=== PATIENT | female | born 1935 | race Caucasian/White ===

== ENCOUNTER 2017-01-27 16:25 | Emergency (ER) | payer MEDICARE, OTHER ==
[2017-01-27] MEDS ORDERED: MORPHINE SULFATE 4 MG/ML SYRINGE IVP STA (17:08)
[2017-01-27] MEDS ORDERED: DIPH,PERTUS(ACELL)TETVAC-LF 0.5 ML VIAL IM ONE (17:29)
[2017-01-27 17:45] LABS: Basophils # (A) 0.1 k/uL (0-0.2); Basophils % (A) 1 %; CH 32.8; CHCM 35.2; Eosinophils # (A) 0.2 k/uL (0-0.7); Eosinophils % (A) 3 %; HCT 43.1 % (34.0-46.0); HDW 2.46; HGB 15.2 gm/dL (11.4-16.0); Luc # (Auto) 0.19; Luc % (Auto) 2; Lymphocytes # (A) 1.9 k/uL (1.0-4.8); Lymphocytes % (A) 24 %; MCHC 35.3 g/dL (31.0-37.0); MCV 93.6 fL (80.0-100.0); Mean Platelet Volume 7.3; Monocytes # (A) 0.5 k/uL (0-1.0); Monocytes % (A) 6 %; Neutrophils # (A) 5.4 k/uL (1.3-7.7); Neutrophils % (A) 66 %; RDW 13.1 % (11.5-15.5); WBC 8.2 k/uL (3.8-10.6); WBC (Perox) 8.05
[2017-01-27 17:57] LABS: ALT 40 U/L (9-52); AST 50 U/L (14-36); Alcohol <10 mg/dL; Alkaline Phosphatase 78 U/L (38-126); Anion Gap 12 mmol/L; Blood Urea Nitrogen 27 mg/dL (7-17); Carbon Dioxide 23 mmol/L (22-30); Chloride 103 mmol/L (98-107); Glucose 103 mg/dL (74-99); Non-African American GFR(MDRD) >60 (>60 ml/min/1.73 sqM); Sodium 138 mmol/L (137-145); Total Bilirubin 0.9 mg/dL (0.2-1.3); Total Protein 8.4 g/dL (6.3-8.2)
[2017-01-27 17:58] LABS: Potassium 5.3 mmol/L (3.5-5.1)
--- NOTE | 2017-01-27 17:58 | ED ---
General Adult HPI - General Chief complaint: Fall Stated complaint: Fall-wrist and facial pain Time Seen by Provider: 01/27/17 16:59 Source: patient Mode of arrival: wheelchair Limitations: no limitations - History of Present Illness Initial comments: 81-year-old female presents status post mechanical fall. Patient states she tripped and fell landing on her right hand and face. She denies any loss of consciousness. She is complaining of right elbow, right hand,and mild pain in her left knee. Patient was ambulatory after the accident. She denies any chest pain or shortness of breath. Denies any dizziness prior to the follow- up. She has past medical history of hypertension, diabetes, and CAD status post stent. Pain in her nose 400 is severe as well as pain in her right hand. She also noted significant swelling over the right hand. Denies any vision changes, numbness nausea or vomiting. - Related Data Home Medications Medication Instructions Recorded Confirmed Aspirin EC [Ecotrin Low Dose] 81 mg PO BID 01/27/17 01/27/17 Lisinopril [Zestril] 20 mg PO BID 01/27/17 01/27/17 Metoprolol Tartrate [Lopressor] 25 mg PO BID 01/27/17 01/27/17 Multivitamins, Thera [Multivitamin 1 tab PO DAILY 01/27/17 01/27/17 (formulary)] Previous Rx's Medication Instructions Recorded Ibuprofen [Motrin] 600 mg PO Q8HR PRN #20 tab 01/27/17 Allergies Allergy/AdvReac Type Severity Reaction Status Date / Time Sulfa (Sulfonamide Allergy Unknown Verified 01/27/17 16:48 Antibiotics) Review of Systems ROS Statement: Those systems with pertinent positive or pertinent negative responses have been documented in the HPI. ROS Other: All systems not noted in ROS Statement are negative. Past Medical History Past Medical History: Coronary Artery Disease (CAD), Hypertension History of Any Multi-Drug Resistant Organisms: None Reported Additional Past Surgical History / Comment(s): Coronary stenting Past Psychological History: No Psychological Hx Reported Smoking Status: Never smoker Past Alcohol Use History: None Reported Past Drug Use History: None Reported General Exam Limitations: no limitations General appearance: alert, in no apparent distress Expanded Head exam: Present: raccoon eyes, other. Absent: ang's sign Eye exam: Present: normal appearance, PERRL, EOMI ENT exam: Present: other (Swelling over the nasal bridge, no additional deformity noted) Neck exam: Present: tenderness, full ROM, other (Tenderness over the left lateral paraspinal muscles) Respiratory exam: Present: normal lung sounds bilaterally. Absent: respiratory distress Cardiovascular Exam: Present: regular rate, normal rhythm GI/Abdominal exam: Present: soft. Absent: distended, tenderness, guarding, rebound Rectal exam: Present: deferred Extremities exam: Present: other (Abrasion to the left lateral elbow, range of motion at the left shoulder and left elbow is within normal limits, right radial pulse intact, there is significant soft tissue swelling and ecchymosis over the plantar and dorsal surface of the hand. Normal range of motion of all 5 digits, Refill is intact in all 5 digits.) Back exam: Present: normal inspection, full ROM Neurological exam: Present: alert, oriented X3, CN II-XII intact, normal gait Skin exam: Present: abrasion (Additional small superficial abrasion noted over the left knee.) Course Vital Signs 01/27/17 01/27/17 01/27/17 16:31 17:38 18:42 Temperature 98.1 F Pulse Rate 84 62 74 Respiratory 20 18 20 Rate Blood Pressure 252/94 191/71 O2 Sat by Pulse 98 100 98 Oximetry - Reevaluation(s) Time: 18:30 Procedures - Orthopedic Splinting/Casting Injury #1 Side: right Upper Extremity Injury Location: wrist Upper Extremity Immobilizer: wrist splint (Volar splint applied to the right wrist. Patient is neurovascularly intact status post splinting) Medical Decision Making - Medical Decision Making 81-year-old female presents status post mechanical fall. Patient is complaining primarily of pain over her nasal bridge and right hand and wrist. On examination patient has bilateral orbital ecchymosis and soft tissue swelling over the nasal bridge. She has significant soft tissue swelling over the right distal wrist and hand. Patient denies loss of consciousness. She denies a chest pressure or shortness of breath, or dizziness or lightheadedness associated with the fall. Computed tomography scan of the brain, facial bones, and cervical spine is obtained. There is no scrotal hemorrhage, no facial bone fracture, no cervical spine injury. X-rays of the chest, pelvis, right hand, right wrist, and right shoulder are also obtained and these are negative for fracture or dislocation. Given the significant swelling of the right wrist she is placed in a volar splint and encouraged to follow up with her primary care physician. She is also given follow-up with hand surgery as an outpatient. Laboratory studies are reviewed and are significant for mildly elevated CK-MB and CPK. This is likely due to traumatic injury. Patient denies chest pain associated with the injury or while in the emergency department. EKG is obtained and shows a ventricular rate of 61, normal sinus rhythm, SC interval 150, QRS duration 80, QTc is 388. Diagnosis: Closed head injury, right hand contusion - Lab Data Result diagrams: 01/27/17 17:35 01/27/17 17:35 Lab Results 01/27/17 01/27/17 01/27/17 Range/Units 17:35 17:35 17:35 WBC (3.8-10.6) k/uL RBC (3.80-5.40) m/uL Hgb (11.4-16.0) gm/dL Hct (34.0-46.0) % MCV (80.0-100.0) fL MCH (25.0-35.0) pg MCHC (31.0-37.0) g/dL RDW (11.5-15.5) % Plt Count (150-450) k/uL Neutrophils % % Lymphocytes % % Monocytes % % Eosinophils % % Basophils % % Neutrophils # (1.3-7.7) k/uL Lymphocytes # (1.0-4.8) k/uL Monocytes # (0-1.0) k/uL Eosinophils # (0-0.7) k/uL Basophils # (0-0.2) k/uL PT (9.0-12.0) sec INR (<1.1) APTT (22.0-30.0) sec Sodium 138 (137-145) mmol/L Potassium 5.3 H (3.5-5.1) mmol/L Chloride 103 (98-107) mmol/L Carbon Dioxide 23 (22-30) mmol/L Anion Gap 12 mmol/L BUN 27 H (7-17) mg/dL Creatinine 0.86 (0.52-1.04) mg/dL Est GFR (MDRD) Af Amer >60 (>60 ml/min/1.73 sqM) Est GFR (MDRD) Non-Af >60 (>60 ml/min/1.73 sqM) Glucose 103 H (74-99) mg/dL Calcium 10.0 (8.4-10.2) mg/dL Total Bilirubin 0.9 (0.2-1.3) mg/dL AST 50 H (14-36) U/L ALT 40 (9-52) U/L Alkaline Phosphatase 78 (38-126) U/L Total Creatine Kinase 146 H (30-135) U/L CK-MB (CK-2) 4.9 H* (0.0-2.4) ng/mL CK-MB (CK-2) Rel Index 3.4 Troponin I <0.012 (0.000-0.034) ng/mL Total Protein 8.4 H (6.3-8.2) g/dL Albumin 4.8 (3.5-5.0) g/dL Urine Color Urine Appearance (Clear) Urine pH (5.0-8.0) Ur Specific Dawn (1.001-1.035) Urine Protein (Negative) Urine Glucose (UA) (Negative) Urine Ketones (Negative) Urine Blood (Negative) Urine Nitrite (Negative) Urine Bilirubin (Negative) Urine Urobilinogen (<2.0) mg/dL Ur Leukocyte Esterase (Negative) Urine RBC (0-5) /hpf Urine WBC (0-5) /hpf Urine Bacteria (None) /hpf Urine Mucus (None) /hpf Urine Opiates Screen (NotDetected) Ur Oxycodone Screen (NotDetected) Urine Methadone Screen (NotDetected) Ur Propoxyphene Screen (NotDetected) Ur Barbiturates Screen (NotDetected) U Tricyclic Antidepress (NotDetected) Ur Phencyclidine Scrn (NotDetected) Ur Amphetamines Screen (NotDetected) U Methamphetamines Scrn (NotDetected) U Benzodiazepines Scrn (NotDetected) Urine Cocaine Screen (NotDetected) U Marijuana (THC) Screen (NotDetected) Serum Alcohol <10 mg/dL Blood Type A Positive Blood Type Recheck CABO Indicated Antibody Screen NEGATIVE Spec Expiration Date 01/30/2017 - 233401/27/17 01/27/17 01/27/17 Range/Units 17:35 17:35 19:00 WBC 8.2 (3.8-10.6) k/uL RBC 4.60 (3.80-5.40) m/uL Hgb 15.2 (11.4-16.0) gm/dL Hct 43.1 (34.0-46.0) % MCV 93.6 (80.0-100.0) fL MCH 33.0 (25.0-35.0) pg MCHC 35.3 (31.0-37.0) g/dL RDW 13.1 (11.5-15.5) % Plt Count 181 (150-450) k/uL Neutrophils % 66 % Lymphocytes % 24 % Monocytes % 6 % Eosinophils % 3 % Basophils % 1 % Neutrophils # 5.4 (1.3-7.7) k/uL Lymphocytes # 1.9 (1.0-4.8) k/uL Monocytes # 0.5 (0-1.0) k/uL Eosinophils # 0.2 (0-0.7) k/uL Basophils # 0.1 (0-0.2) k/uL PT 10.5 (9.0-12.0) sec INR 1.0 (<1.1) APTT 21.9 L (22.0-30.0) sec Sodium (137-145) mmol/L Potassium (3.5-5.1) mmol/L Chloride (98-107) mmol/L Carbon Dioxide (22-30) mmol/L Anion Gap mmol/L BUN (7-17) mg/dL Creatinine (0.52-1.04) mg/dL Est GFR (MDRD) Af Amer (>60 ml/min/1.73 sqM) Est GFR (MDRD) Non-Af (>60 ml/min/1.73 sqM) Glucose (74-99) mg/dL Calcium (8.4-10.2) mg/dL Total Bilirubin (0.2-1.3) mg/dL AST (14-36) U/L ALT (9-52) U/L Alkaline Phosphatase (38-126) U/L Total Creatine Kinase (30-135) U/L CK-MB (CK-2) (0.0-2.4) ng/mL CK-MB (CK-2) Rel Index Troponin I (0.000-0.034) ng/mL Total Protein (6.3-8.2) g/dL Albumin (3.5-5.0) g/dL Urine Color Colorless Urine Appearance Clear (Clear) Urine pH 5.0 (5.0-8.0) Ur Specific Dawn 1.005 (1.001-1.035) Urine Protein Negative (Negative) Urine Glucose (UA) Negative (Negative) Urine Ketones Negative (Negative) Urine Blood Negative (Negative) Urine Nitrite Negative (Negative) Urine Bilirubin Negative (Negative) Urine Urobilinogen <2.0 (<2.0) mg/dL Ur Leukocyte Esterase Large H (Negative) Urine RBC <1 (0-5) /hpf Urine WBC 20 H (0-5) /hpf Urine Bacteria Rare H (None) /hpf Urine Mucus Rare H (None) /hpf Urine Opiates Screen Detected H (NotDetected) Ur Oxycodone Screen Not Detected (NotDetected) Urine Methadone Screen Not Detected (NotDetected) Ur Propoxyphene Screen Not Detected (NotDetected) Ur Barbiturates Screen Not Detected (NotDetected) U Tricyclic Antidepress Not Detected (NotDetected) Ur Phencyclidine Scrn Not Detected (NotDetected) Ur Amphetamines Screen Not Detected (NotDetected) U Methamphetamines Scrn Not Detected (NotDetected) U Benzodiazepines Scrn Not Detected (NotDetected) Urine Cocaine Screen Not Detected (NotDetected) U Marijuana (THC) Screen Not Detected (NotDetected) Serum Alcohol mg/dL Blood Type Blood Type Recheck Antibody Screen Spec Expiration Date - EKG Data EKG shows normal: sinus rhythm Rate: normal 01/27/17 17:57 EKG is obtained and shows normal sinus rhythm with a ventricular rate of 61, SC interval 150, QRS duration is 80, QTc is 388 which is normal. Disposition Clinical Impression: Contusion of hand, Concussion with no loss of consciousness, Fall Disposition: HOME SELF-CARE Condition: Good Instructions: Fall Prevention for Older Adults (ED), Concussion (ED), Wrist Sprain (ED) Prescriptions: Ibuprofen [Motrin] 600 mg PO Q8HR PRN #20 tab PRN Reason: Pain Referrals: Prasanna Solis MD [Primary Care Provider] - 1-2 days Time of Disposition: 19:41
[2017-01-27 18:04] LABS: Partial Thromboplastin Time 21.9 sec (22.0-30.0); Prothrombin Time 10.5 sec (9.0-12.0)
[2017-01-27 18:05] LABS: Creatine Kinase 146 U/L (30-135)
[2017-01-27 18:17] LABS: Troponin I <0.012 ng/mL (0.000-0.034)
[2017-01-27 18:21] LABS: Creatine Kinase MB 4.9 ng/mL (0.0-2.4)
--- NOTE | 2017-01-27 18:44 | XR ---
EXAMINATION TYPE: XR pelvis AP view DATE OF EXAM: 01/27/2017 CLINICAL HISTORY: pain TECHNIQUE: Single view the pelvis is submitted. FINDINGS: No evidence for fracture, dislocation or bony lesion. Joint spaces are well-preserved. S I joints appear symmetric. IMPRESSION: 1. No acute fracture or dislocation seen. ICD 10 NO FRACTURE, INITIAL EVALUATION
--- NOTE | 2017-01-27 18:46 | XR ---
EXAMINATION TYPE: XR wrist complete RT, XR hand complete RT DATE OF EXAM: 01/27/2017 CLINICAL HISTORY: pain TECHNIQUE: Frontal, lateral and oblique images of the right wrist are obtained. COMPARISON: None. FINDINGS: There is no acute fracture/dislocation evident. Severe degenerative narrowing first carpometacarpal j oint with bony collapse noted. The overlying soft tissue appears unremarkable. IMPRESSION: There is no acute fracture or dislocation seen. ICD 10 NO FRACTURE, INITIAL EVALUATION EXAMINATION TYPE: XR wrist complete RT, XR hand complete RT DATE OF EXAM: 01/27/2017 CLINICAL HISTORY: pain TECHNIQUE: Frontal, lateral and oblique images of the right hand are obtained. COMPARISON: None. FINDINGS: There is no acute fracture/dislocation evident. Severe degenerative narrowing DIP and PIP joints. Soft tissue swelling of the dorsum of the hand. IMPRESSION: There is no acute fracture or dislocation ICD 10 NO FRACTURE, INITIAL EVALUATION
--- NOTE | 2017-01-27 18:47 | XR ---
EXAMINATION TYPE: XR elbow complete RT DATE OF EXAM: 01/27/2017 CLINICAL HISTORY: pain TECHNIQUE: Frontal, lateral and oblique images of the right elbow are obtained. COMPARISON: None. FINDINGS: There is no acute fracture/dislocation evident of the elbow. No abnormal fat pad signs ar e seen. The overlying soft tissue appears unremarkable. IMPRESSION: There is no acute fracture or dislocation of the elbow. ICD 10 NO FRACTURE, INITIAL EVALUATION
--- NOTE | 2017-01-27 18:47 | XR ---
EXAMINATION TYPE: XR chest 1V portable DATE OF EXAM: 01/27/2017 HISTORY: Shortness of breath. COMPARISON: 10/18/2012 TECHNIQUE: Single view of the chest is submitted. FINDINGS: Demonstrated are scattered senescent parenchymal change. There is no evidence for focal infiltrate. The heart is stable. Hilar and mediastinal structures are within normal limits. Degenerative changes are seen of the dorsal spine. IMPRESSION: 1. Chronic changes without evidence for acute pulmonary disease.
--- NOTE | 2017-01-27 18:49 | CT ---
EXAMINATION TYPE: CT brain zach rodrigues DATE OF EXAM: 01/27/2017 COMPARISON: NONE HISTORY: Fall injury today. CT DLP: 1485.[address] of the brain was performed. The ventricles, basal cisterns and sulci overlying the cerebral convexities demonstrate mild enlargem ent. There is no evidence for intracranial hemorrhage or sulcal effacement. There is decreased attenuatio n about the periventricular white matter and deep white matter of both cerebral hemispheres, compatib le with chronic small vessel ischemia. No mass effects are seen. If symptoms persist consider MRI. Osseous calvarium is intact. IMPRESSION: 1. Age related atrophic and chronic small vessel ischemic change without acute intracranial process seen at this time. CT Cervical Spine: Unenhanced CT of the cervical spine was performed with bone and soft tissue window settings submitted . Coronal and sagittal reconstruction is obtained. There is normal alignment and prevertebral soft tissues. No evidence for acute cervical fracture . Se tito degenerative disc space narrowing with spondylosis and associated cystic changes. Biapical scarr ing. IMPRESSION: 1. No evidence for acute fracture or subluxation of the cervical spine.
--- NOTE | 2017-01-27 18:51 | CT ---
EXAMINATION TYPE: CT facial bones wo con DATE OF EXAM: 01/27/2017 COMPARISON: NONE HISTORY: Fall injury today. CT DLP: 557.[address] of the facial bones was performed in the axial and coronal planes. Bone and soft tissu e window settings are submitted. Periorbital and perinasal swelling identified. I do not see evidence for displaced facial bone fracture or depressed facial bone fracture. The globes are intact. Paranasal sinuses are well-aerated. IMPRESSION: 1. No evidence for depressed or displaced facial bone fracture.
[2017-01-27 19:11] LABS: Appearance,Urine Clear (Clear); Bacteria,Urine Rare /hpf; Bilirubin,Urine Negative (Negative); Glucose,Urine (UA) Negative (Negative); Ketones,Urine Negative (Negative); Leukocyte Esterase,Urine Large (Negative); Mucus,Urine Rare /hpf; Nitrite,Urine Negative (Negative); Particle Count 1897; Protein,Urine Negative (Negative); RBC,Urine <1 /hpf (0-5); Specific Gravity,Urine 1.005 (1.001-1.035); UA Billing (MACRO vs. MICRO) MICRO; Urobilinogen,Urine <2.0 mg/dL (<2.0); WBC,Urine 20 /hpf (0-5)
[2017-01-27 19:54] VITALS: TEMP 98.6
[2017-01-27 20:07] VITALS: BP 128/56; PULSE 62; RESP 20
== END 2017-01-27 20:07 | disposition home or self-care (01) ==
LOC: EC 16:25
DX: S06.0X0A Concussion without loss of consciousness, initial encounter (principal); S60.221A Contusion of right hand, initial encounter; S05.11XA Contusion of eyeball and orbital tissues, right eye, initial encounter; S05.12XA Contusion of eyeball and orbital tissues, left eye, initial encounter; S80.212A Abrasion, left knee, initial encounter; S50.312A Abrasion of left elbow, initial encounter; M79.89 Other specified soft tissue disorders; R22.0 Localized swelling, mass and lump, head; R79.89 Other specified abnormal findings of blood chemistry; I10 Essential (primary) hypertension; I25.10 Atherosclerotic heart disease of native coronary artery without angina pectoris; Z79.82 Long term (current) use of aspirin; Z79.899 Other long term (current) drug therapy; Z88.2 Allergy status to sulfonamides; W01.0XXA Fall on same level from slipping, tripping and stumbling without subsequent striking against object, initial encounter; Y93.89 Activity, other specified
CPT/HCPCS: 36415; 93005; 86900; 86901; 80053; 82550; 82553; 84484; 85025; 85610; 85730; 86850; 81001; 80306; 80320; 71010; 72170; 73080; 73110; 73130; 72125; 70486; 70450; 99284; 96374; 29125; J2270

== ENCOUNTER → 2018-10-15 | Outpatient (CLI) | payer MEDICARE ==
--- NOTE | 2018-10-15 15:45 | US ---
EXAMINATION TYPE: US venous doppler duplex LE LT DATE OF EXAM: 10/15/2018 3:29 PM COMPARISON: NONE CLINICAL HISTORY: M79.605 left leg pain. Left ankle swelling x 2 days SIDE PERFORMED: Left TECHNIQUE: The lower extremity deep venous system is examined utilizing real time linear array sonog laial with graded compression, doppler sonography and color-flow sonography. VESSELS IMAGED: Common Femoral Vein Deep Femoral Vein Greater Saphenous Vein * Femoral Vein Popliteal Vein Small Saphenous Vein * Proximal Calf Veins (* superficial vessels) There is normal flow, compressibility, vascular waveforms. Left Leg: Negative for DVT. Left popliteal fossa cyst is noted medially = 2.5 x 1.2 x 0.5cm. IMPRESSION: No evident deep venous stenosis at or above the left knee. Sheldon's cyst.
== END | disposition home or self-care (01) ==
LOC: RADUSWWP 14:24
PROVIDERS: ATTEND Internal Medicine
DX: M71.22 Synovial cyst of popliteal space [Baker], left knee (principal); M79.605 Pain in left leg

== ENCOUNTER 2018-11-10 12:35 | Inpatient (IN) | payer MEDICARE, OTHER ==
[2018-11-10] MEDS ORDERED: NITROGLYCERIN-D5W PMX 50 MG in DEXTROSE/WATER 1 250ML.BAG IV STA (12:43)
[2018-11-10] MEDS ORDERED: ASPIRIN 81 MG PO STA (12:43)
[2018-11-10] MEDS ORDERED: NITROGLYCERIN SL TABS 0.4 MG TAB SUBLINGUAL STA (12:43)
--- NOTE | 2018-11-10 12:48 | ED ---
General Adult HPI - General Stated complaint: Chest Pain Time Seen by Provider: 11/10/18 12:36 Source: patient, EMS, RN notes reviewed Mode of arrival: EMS Limitations: no limitations - History of Present Illness Initial comments: Patient is a pleasant 83-year-old female presenting to the emergency Department with complaints of chest discomfort. Onset of symptoms was 30 or 40 minutes prior to arrival. Patient complains of pressure waxing and waning her chest. Discomfort is somewhat severe at this time rated 9/10. No radiation. Patient does have mild associated nausea. No diaphoresis or dyspnea. Patient does have history of similar symptoms a proximal he one year ago associated with heart attack. Symptoms did get better with nitroglycerin by EMS. - Related Data Home Medications Medication Instructions Recorded Confirmed Aspirin EC [Ecotrin Low Dose] 81 mg PO BID 01/27/17 05/20/17 Lisinopril [Zestril] 20 mg PO BID 01/27/17 05/20/17 Metoprolol Tartrate [Lopressor] 25 mg PO BID 01/27/17 05/20/17 Multivitamins, Thera [Multivitamin 1 tab PO DAILY 01/27/17 05/20/17 (formulary)] Vits A,C,E/Lutein/Minerals 1 tab PO DAILY 05/20/17 05/20/17 [Ocuvite with Lutein Tablet] Previous Rx's Medication Instructions Recorded amLODIPine [Norvasc] 10 mg PO DAILY #30 tablet 05/22/17 Allergies Allergy/AdvReac Type Severity Reaction Status Date / Time Sulfa (Sulfonamide Allergy Unknown Verified 11/10/18 12:49 Antibiotics) Review of Systems ROS Statement: Those systems with pertinent positive or pertinent negative responses have been documented in the HPI. ROS Other: All systems not noted in ROS Statement are negative. Constitutional: Denies: fever Eyes: Denies: eye pain ENT: Denies: ear pain Respiratory: Denies: cough, dyspnea Cardiovascular: Reports: chest pain Endocrine: Denies: fatigue Gastrointestinal: Reports: nausea. Denies: abdominal pain Genitourinary: Denies: dysuria Musculoskeletal: Denies: back pain Skin: Denies: rash Neurological: Denies: weakness Past Medical History Past Medical History: Coronary Artery Disease (CAD), Deep Vein Thrombosis (DVT), Hyperlipidemia, Hypertension, Myocardial Infarction (ME), Osteoarthritis (OA) Additional Past Medical History / Comment(s): 01/2017 concussion, high cholesterol-does not tolerate statins, arthritis bilateral hands, neuropathy bilateral feet, past R ankle fracture, DVT R leg many years ago. Last Myocardial Infarction Date:: 2002 History of Any Multi-Drug Resistant Organisms: None Reported Past Surgical History: Adenoidectomy, Appendectomy, Heart Catheterization With Stent, Hysterectomy, Orthopedic Surgery, Tonsillectomy Additional Past Surgical History / Comment(s): 2002 Coronary stenting, bilateral cataract removal with lens implants, colonoscopy, laparoscopic surgery for abdominal adhesions, R knee arthroscopic surgery. Past Anesthesia/Blood Transfusion Reactions: No Reported Reaction Date of Last Stent Placement:: 2002 Smoking Status: Former smoker - Past Family History Father Family Medical History: Cancer, Coronary Artery Disease (CAD) Additional Family Medical History / Comment(s): Pt was estranged from her father. She thinks he had some form of cancer and heart disease-he at the age of 54yrs. Mother Family Medical History: Coronary Artery Disease (CAD), Diabetes Mellitus Additional Family Medical History / Comment(s): Mother at the age of 72 yrs. General Exam Limitations: no limitations General appearance: alert, in no apparent distress Head exam: Present: atraumatic Eye exam: Present: normal appearance, PERRL ENT exam: Present: normal oropharynx Neck exam: Present: normal inspection Respiratory exam: Present: normal lung sounds bilaterally. Absent: chest wall tenderness Cardiovascular Exam: Present: regular rate, normal rhythm Expanded Peripheral pulses: 2+: Radial (R), Radial (L), Posterior Tibialis (R), Posterior Tibialis (L) GI/Abdominal exam: Present: soft. Absent: tenderness Extremities exam: Present: normal inspection. Absent: pedal edema, calf tenderness Neurological exam: Present: alert Psychiatric exam: Present: normal affect, normal mood Skin exam: Present: normal color Course Vital Signs 11/10/18 12:44 Temperature 98 F Pulse Rate 63 Respiratory 18 Rate Blood Pressure 141/65 - Reevaluation(s) Reevaluation #1: 11/10/18 12:46 Case was discussed with Dr. Quan who is coming to evaluate patient. EKG tracing by EMS does show borderline changes in lead III and aVF. EKG Findings - EKG Comments: EKG Findings:: Sinus bradycardia 57. VA 164. QRS 80. QT 444. QTC 432. Normal axis. Normal QRS. No acute ST change. Medical Decision Making - Medical Decision Making Dr. Quan did evaluate patient in the emergency department with plan for continued cardiac care. Patient is symptom-free at this time. He did request heparin Case was discussed also with Dr. willett, who will admit covering for Dr. Swan. Patient was reevaluated and updated. - Radiology Data Radiology results: image reviewed (Chest x-ray reveals no acute process) Disposition Clinical Impression: ACS (acute coronary syndrome) Disposition: ADMITTED IP TO THIS HOSP Is patient prescribed a controlled substance at d/c from ED?: No Referrals: Prasanna Solis MD [Primary Care Provider] - 1-2 days
[2018-11-10] MEDS ORDERED: ATORVASTATIN 80 MG TAB PO STA (12:56)
[2018-11-10] MEDS ORDERED: HEPARIN SODIUM,PORCINE 5,000 UNIT/ML 1 ML VIAL IV ONE (12:58)
--- NOTE | 2018-11-10 13:14 | XR ---
EXAMINATION TYPE: XR chest 1V portable DATE OF EXAM: 11/10/2018 COMPARISON: Chest x-ray January 27, 2017. CTA chest May 20, 2017. HISTORY: Chest pain. TECHNIQUE: Single AP portable frontal upright view of the chest is obtained. FINDINGS: Overlying EKG leads are redemonstrated. There is background chronic emphysematous change wi th scattered parenchymal fibrosis. There is no focal air space opacity, pleural effusion, or pneumoth orax seen. The cardiac silhouette size is within normal limits with atherosclerotic change in the th oracic aorta. There is some mass effect on the trachea deviated to right of midline. The osseous st ructures are intact. IMPRESSION: Chronic emphysematous and parenchymal changes without acute pulmonary process.
[2018-11-10] MEDS ORDERED: HEPARIN SOD,PORK IN 0.45% NACL 25,000 UNIT in 0.45% NACL 1 250ML.BAG IV SCH (13:30)
[2018-11-10 14:03] LABS: Basophils % (A) 0 %; Eosinophils # (A) 0.2 k/uL (0-0.7); Eosinophils % (A) 2 %; HCT 43.9 % (34.0-46.0); Lymphocytes # (A) 1.4 k/uL (1.0-4.8); Lymphocytes % (A) 19 %; MCH 30.8 pg (25.0-35.0); MCHC 31.9 g/dL (31.0-37.0); MCV 96.5 fL (80.0-100.0); Mean Platelet Volume 8.1; Monocytes # (A) 0.4 k/uL (0-1.0); Monocytes % (A) 5 %; Neutrophils # (A) 5.5 k/uL (1.3-7.7); Neutrophils % (A) 72 %; Platelet Count 181 k/uL (150-450); RBC 4.55 m/uL (3.80-5.40); RDW 12.8 % (11.5-15.5); WBC 7.7 k/uL (3.8-10.6)
--- NOTE | 2018-11-10 14:27 | P.CRDCN ---
History of Present Illness History of present illness: This is Dr. Quan dictating a consult on this patient The patient was interviewed and examined by me IMPRESSION / ASSESSMENT: Acute coronary syndrome/unstable angina, troponins pending Subtle biphasic ST changes in the high lateral leads with normalization upon becoming chest pain free Past history of coronary artery disease status post coronary stenting Hypertension Nondiabetic nonsmoker Statin myopathy PLAN: Aspirin statins IV nitroglycerin beta blockers and heparin Coronary angiography today Discussed with patient Discussed with Dr. Dr. Morris HPI Patient presented to the hospital with severe chest discomfort mid chest radiating up into the jaws and into the right arm It took 4 nitroglycerin to relieve it finally. Associated nausea. She rates her pain as 9 out of 10. The pain is quite severe ROS: No fever chills or rigors, no cough, phlegm or expectoration, no nausea, vomiting or diarrhea, no hematuria, dysuria, no musculoskeletal complaints, no strokes or seizures, no skin lesions. EXAMINATION: On examination blood pressure 1 4106 mercury pulse rate in the 60s Afebrile Breath sounds are clear no rhonchi no crackles Heart sounds S1-S2 normal no murmurs or gallops or rub Extremities are warm no edema REVIEW OF LABS, ECG & MEDICAL DATA Twelve-lead ECG as above Hemoglobin 14 Platelet count 191,000 troponin pending Past Medical History Past Medical History: Coronary Artery Disease (CAD), Deep Vein Thrombosis (DVT), Hyperlipidemia, Hypertension, Myocardial Infarction ([place]), Osteoarthritis (OA) Additional Past Medical History / Comment(s): 01/2017 concussion, high indira sterol-does not tolerate statins, arthritis bilateral hands, neuropathy bilateral feet, past R ankle fracture, DVT R leg many years ago. Last Myocardial Infarction Date:: 2002 History of Any Multi-Drug Resistant Organisms: None Reported Past Surgical History: Adenoidectomy, Appendectomy, Heart Catheterization With Stent, Hysterectomy, Orthopedic Surgery, Tonsillectomy Additional Past Surgical History / Comment(s): 2002 Coronary stenting, bilateral cataract removal with lens implants, colonoscopy, laparoscopic surgery for abdominal adhesions, R knee arthroscopic surgery. Past Anesthesia/Blood Transfusion Reactions: No Reported Reaction Date of Last Stent Placement:: 2002 Smoking Status: Former smoker - Past Family History Father Family Medical History: Cancer, Coronary Artery Disease (CAD) Additional Family Medical History / Comment(s): Pt was estranged from her father. She thinks he had some form of cancer and heart disease-he at the age of 54yrs. Mother Family Medical History: Coronary Artery Disease (CAD), Diabetes Mellitus Additional Family Medical History / Comment(s): Mother at the age of 72 yrs. Medications and Allergies Home Medications Medication Instructions Recorded Confirmed Type Aspirin EC [Ecotrin Low Dose] 81 mg PO BID 01/27/17 11/10/18 History Lisinopril [Zestril] 20 mg PO BID 01/27/17 11/10/18 History Metoprolol Tartrate [Lopressor] 50 mg PO BID 01/27/17 11/10/18 History Multivitamins, Thera [Multivitamin 1 tab PO DAILY 01/27/17 11/10/18 History (formulary)] Vits A,C,E/Lutein/Minerals 1 tab PO DAILY 05/20/17 11/10/18 History [Ocuvite with Lutein Tablet] Calcium Carbonate [Calcium] 600 mg PO DAILY 11/10/18 11/10/18 History Ubidecarenone [Co Q-10] 300 mg PO DAILY 11/10/18 11/10/18 History Allergies Allergy/AdvReac Type Severity Reaction Status Date / Time Sulfa (Sulfonamide Allergy Unknown Verified 11/10/18 13:50 Antibiotics) Physical Exam Vitals: Vital Signs Temp Pulse Resp BP 11/10/18 12:44 98 F 63 18 141/65 Intake and Output 11/09/18 11/10/18 11/10/18 22:59 06:59 14:59 Other: Weight 67.132 kg Results 11/10/18 13:30 Cardiac Enzymes 11/10/18 11/10/18 Range/Units 13:30 13:30 CK-MB (CK-2) 1.5 (0.0-2.4) ng/mL Troponin I 0.014 (0.000-0.034) ng/mL CBC 11/10/18 Range/Units 13:30 WBC 7.7 (3.8-10.6) k/uL RBC 4.55 (3.80-5.40) m/uL Hgb 14.0 (11.4-16.0) gm/dL Hct 43.9 (34.0-46.0) % Plt Count 181 (150-450) k/uL Current Medications Generic Name Dose Route Start Last Admin Trade Name Freq PRN Reason Stop Dose Admin Aspirin 325 mg 11/11/18 09:00 Aspirin PO DAILY MELVIN Nitroglycerin/Dextrose 50 mg/ 250 mls @ 1.5 mls/hr 11/10/18 12:43 11/10/18 13:16 IV Solution IV 11/11/18 12:42 5 mcg/min .Q24H STA 1.5 mls/hr Administration Protocol 5 MCG/MIN Heparin Sodium/Sodium Chloride 250 mls @ 8.056 mls/hr 11/10/18 13:30 25,000 unit/ Sodium Chloride IV .Q24H MELVIN Protocol 12 UNITS/KG/HR Sodium Chloride 10 ml 11/10/18 21:00 Saline Flush IV BID MELVIN Intake and Output 11/09/18 11/10/18 11/10/18 22:59 06:59 14:59 Other: Weight 67.132 kg Patient Weight 11/11/18 06:59 Weight 67.132 kg 11/10/18 13:30
[2018-11-10 14:32] LABS: Albumin 4.6 g/dL (3.5-5.0); Calcium 9.3 mg/dL (8.4-10.2); Magnesium 1.9 mg/dL (1.6-2.3); Total Bilirubin 0.7 mg/dL (0.2-1.3); Total Protein 8.1 g/dL (6.3-8.2)
[2018-11-10 14:34] LABS: Prothrombin Time 10.9 sec (9.0-12.0)
[2018-11-10 14:41] LABS: Potassium 5.3 mmol/L (3.5-5.1)
[2018-11-10] MEDS ORDERED: IV FLUID CONTINUATION 900 ML IV ONE (15:25)
[2018-11-10] MEDS ORDERED: HEPARIN SODIUM 1,000 UN/ML (10ML VL) ONE (15:36)
[2018-11-10] MEDS ORDERED: VERAPAMIL 2.5 MG/ML 2 ML AMP ONE (15:36)
[2018-11-10] MEDS ORDERED: LIDOCAINE 1% INJ 10MG/ML (20 ML MDV) ONE (15:36)
[2018-11-10] MEDS: fentaNYL (PF) 50 MCG/ML 2 ML AMP IVP ONE ×2 (15:40→16:38)
[2018-11-10] MEDS ORDERED: fentaNYL (PF) 50 MCG/ML 2 ML AMP ONE (15:40)
[2018-11-10] MEDS ORDERED: LIDOCAINE 1% INJ 10MG/ML (20 ML MDV) SQ ONE (15:40)
[2018-11-10] MEDS ORDERED: NITROGLYCERIN SL TABS 0.4 MG TAB SUBLINGUAL ONE ×2 (15:43→15:45)
[2018-11-10] MEDS ORDERED: VERAPAMIL SYRINGE (5 MG/10 ML) INTRAARTER ONE (15:44)
[2018-11-10] MEDS ORDERED: TICAGRELOR 90 MG TAB ONE (15:54)
[2018-11-10] MEDS ORDERED: TICAGRELOR 90 MG TAB PO ONE (15:55)
[2018-11-10] MEDS ORDERED: BIVALIRUDIN 250 MG in SODIUM CHLORIDE 0.9% 39 ML IV ONE (15:56)
[2018-11-10] MEDS ORDERED: BIVALIRUDIN BOLUS 250 MG/50 ML IV ONE (15:56)
[2018-11-10] MEDS: NITROGLYCERIN 1000MCG/10ML SYRINGE INTRACORON ONE ×2 (16:13→16:42)
[2018-11-10] MEDS ORDERED: IOPAMIDOL-370 125ML BTL INJ ONE (16:42)
[2018-11-10] MEDS ORDERED: IOPAMIDOL-370 100ML BTL INJ ONE (17:05)
[2018-11-10] MEDS ORDERED: NITROGLYCERIN SL TABS 0.4 MG TAB SUBLINGUAL PRN (17:29)
[2018-11-10] MEDS ORDERED: ZOLPIDEM 5 MG TAB PO PRN (17:29)
[2018-11-10] MEDS ORDERED: RX INFO: IV CONTRAST WAS GIVEN 1 EACH MISC MISCELLANE PRN (17:29)
[2018-11-10] MEDS ORDERED: ATROPINE SULFATE 0.1 MG/ML 10ML SYRINGE IV PRN (17:29)
[2018-11-10] MEDS ORDERED: MAG HYDROX/AL HYDROX/SIMETH 30 ML CUP PO PRN (17:29)
[2018-11-10] MEDS ORDERED: SODIUM CHLORIDE 0.9% 1,000 ML IV SCH (17:30)
--- NOTE | 2018-11-10 17:53 | CC ---
CARDIAC CATHETERIZATION REPORT Mrs. Grimaldo is an 83-year-old female with known history of coronary artery disease, hypertension, hyperlipidemia, who presented with symptoms of chest discomfort. She was evaluated by Dr. Quan and recommendation was made regarding cardiac catheterization. The procedure, its risks and complications were discussed with the patient, who was in full understanding and agreement. PROCEDURE: Patient was brought to the [facility] laboratory in a fasting, semi-sedated state after receiving Versed and fentanyl and achieving a moderate conscious sedated state. Using Xylocaine anesthesia and Seldinger technique, a 6-Argentine sheath was introduced in the right radial artery. Selective right and left angiography was performed using 5-Argentine 3-1/2 bend right and left Giorgio catheters. Multiple views were taken of the arteries, including hemiaxial views. Following that, catheters were removed and images were reviewed. FINDINGS: FLUOROSCOPY: There was severe calcification involving all the coronary arteries. LEFT MAIN: This is a short-sized vessel bifurcating into left circumflex, left anterior descending artery. Left main coronary artery has a 10% plaque distally. LEFT ANTERIOR DESCENDING ARTERY: This is a large-sized vessel reaching toward the apex, giving rise to a large diagonal branch proximally. The left anterior descending artery in the mid segment has a 95% stenosis in a long tubular lesion. The diagonal branch has another plaque in the mid segment of about 80%. The rest of the vessel has no high- grade stenosis. LEFT CIRCUMFLEX: This is a nondominant vessel giving rise to 3 obtuse marginal branches. The stented segment in the proximal left circumflex is patent. There is intimal disease of the up to 40% without any evidence of high-grade stenosis. RIGHT CORONARY ARTERY: This vessel is dominant, heavily calcified, bifurcating distally into PDA and posterolateral segment and branches. At the bifurcation, there is a 99% stenosis with slow flow distally. The mid segment has a 70% plaque. LEFT VENTRICULOGRAM: Left ventriculogram was not performed. CONCLUSION: 1. Heavily calcified coronary arteries. 2. Critical stenosis involving the distal right coronary artery with subtotal occluded vessel. 3. Significant stenosis in the mid LAD and the first diagonal branch. 4. Moderate disease in the left circumflex. RECOMMENDATIONS: In view of findings and anatomy, I have recommended proceeding with angioplasty and stenting of the RCA. The procedure, its risks and complications were discussed with the patient, who is in full understanding and agreement. MMODL / IJN: [id number] /
[2018-11-10] MEDS ORDERED: ISOSORBIDE MONONITRATE ER 30 MG TAB.ER.24H PO SCH (18:00)
--- NOTE | 2018-11-10 18:09 | PTCA ---
PERCUTANEOUSTRANS CORORONARY ANGIOGRAPHY Mrs. Grimaldo is an 83-year-old female who presented with symptoms of unstable angina and underwent cardiac catheterization. She was found to have subtotally occluded distal right coronary artery. In view of that, recommendation was made regarding angioplasty and stenting. The procedure, its risks and complication were discussed with the patient, who was in full understanding and agreement. PROCEDURE: A 6-Bruneian FR4 guiding catheter was introduced into the system. After cannulating the left main, a 0.014 balanced medium weight J-wire was advanced and positioned with the help of a FineCross in the distal PDA. Subsequently a Whisper J-wire was advanced and positioned in the PLV. Following that, a 2.25 x 12 mm Trek balloon was advanced and inflation over the Whisper J-wire was performed and subsequently over the BMW J wire. Following that, the balloon was remove. Attempts to advance a 2.25 x 15 mm Xience stent were unsuccessful in the proximal segment. That stent was removed, and attempts to advance a 2.0 x 15 mm Resolute Nathanael stent were unsuccessful as well. At that point the stent was removed as well and the BMW J-wire in the PDA was exchanged over the FineCross to a Mailman and subsequently a 2.0 x 8 mm Nathanael Resolute stent was advanced over the Whisper J-wire, positioned and deployed and post-dilated at 18 atmospheres. Following that, the balloon was removed after removing the Mailman wire. Subsequently there was evidence of an unstable lesion in the mid right coronary artery. At that point, a GuideLiner was introduced in the system and with the help of the GuideLiner, a 2.0 x 15 mm Resolute [place] stent was deployed in the mid segment, post-dilated at 18 atmospheres. Following that the balloon was removed and a 2.25 x 50 mm Xience Jennifer stent was deployed proximal to the first one and post-dilated at 16 atmospheres. Following that the balloon was removed and a 2.5 x 12 mm NC Trek balloon was advanced and multiple inflations at maximum 14 atmospheres were done. After the last inflation, after appropriate wait, the balloon and the guidewire were withdrawn back into the guiding catheter. Images were obtained and repeated. Those images revealed stable successful stenting. At that point, the guiding catheter, the balloon and the guidewire were removed. The sheaths were removed. Hemostasis was obtained with deployment of a TR band. There was no immediate complication. Patient was returned to her room in stable condition. Of note, the patient had chest discomfort and EKG changes with the inflation that resolved at the end of the procedure. She received Angiomax per protocol as well as oral loading dose of Brilinta. RESULTS: 1. Successful stenting of the distal right coronary artery with reduction of stenosis from 99% to 0%. 2. Successful stenting of the mid right coronary artery with reduction of stenosis from 70% to 0%. RECOMMENDATIONS: Patient will be continued on aspirin, Brilinta, beta arie, UBALDO inhibitor and statin. She will need to be re-evaluated down the road regarding the need to undergo revascularization of her LAD territory. Those findings and recommendations were discussed with the patient and her family, and they are in full understanding and agreement. Duration of procedure was 89 minutes. JESSY / CHETNA: [id number] / POLA
[2018-11-10] MEDS: METOPROLOL TARTRATE 50 MG TAB PO SCH (18:40)
[2018-11-10] MEDS: LISINOPRIL 20 MG TAB PO SCH (18:40)
[2018-11-10] MEDS ORDERED: ATORVASTATIN 20 MG TAB PO SCH (21:00)
[2018-11-10] MEDS: TICAGRELOR 90 MG TAB PO SCH (22:32)
--- NOTE | 2018-11-10 22:57 | HP ---
HISTORY AND PHYSICAL DATE OF ADMISSION: 11/10/2018. DATE OF SERVICE: 11/10/2018. PRESENTING COMPLAINT: Chest pain. HISTORY OF PRESENTING COMPLAINT: A very pleasant 83-year-old patient of Dr. Prasanna Solis, chronic stable medical conditions include coronary artery disease with stent, DVT, GERD, hyperlipidemia, hypertension, arthritis, especially in the hands, bilateral peripheral neuropathy, and urinary stress incontinence. This morning developed pain in the right arm. Started as pressure, shortness of breath, dizzy, lightheadedness. Decided to come down to the ER. The patient ruled in for an acute SC and was taken to the cardiac labor/excavator. The patient also had EKG changes. The patient did get a coronary stent, more details in Dr. Morris's note. Admitted for the same. REVIEW OF SYSTEMS: CONSTITUTIONAL: Tired. HEENT: Decreased hearing. RESPIRATORY: Some shortness of breath. CARDIOVASCULAR: As above. GASTROINTESTINAL: Some heartburn. MUSCULOSKELETAL: Arthritic pain in many joints. DERMATOLOGICAL, HEMATOLOGIC, LYMPHATIC: None. PSYCHIATRY: None. NEUROLOGICAL: Peripheral neuropathy. PAST MEDICAL HISTORY: Coronary disease, DVT, GERD, hyperlipidemia, hypertension, osteoarthritis, concussion in 2017, high cholesterol, does not tolerate statins, arthritis in both the hands, peripheral neuropathy, right ankle fracture, urinary stress incontinence. PAST SURGICAL HISTORY: Adenoidectomy, appendectomy, cardiac cath with stent, hysterectomy 2002, coronary stent, bilateral cataract removal with lens implant, laparoscopic surgery for surgical adhesions, right knee arthroscopic surgery. PSYCH HISTORY: History of depression. SOCIAL HISTORY: Lives alone, is a . Does occasionally use a cane. The patient smoked for 25 years, stopped in 2002. Alcohol none. FAMILY HISTORY: Coronary artery disease. HOME MEDICATIONS: 1. Ocuvite with 1 tablet p.o. daily. 2. CO Q 10 300 mg p.o. daily. 3. Multivitamin 1 tablet p.o. daily. 4. Lopressor 50 mg p.o. b.i.d. 5. Zestril 20 mg p.o. b.i.d. 6. Calcium 600 mg p.o. daily. 7. Aspirin 81 mg p.o. b.i.d. ALLERGIES: SULFA. PHYSICAL EXAMINATION: Temperature 98, pulse 63, respiratory 18, blood pressure 140/65, pulse ox 97% on room air. GENERAL APPEARANCE: Average build, lying in bed, awake. EYES: Pupils equal. Conjunctivae normal. HEENT: External appearance of nose and ears normal. Oral cavity normal neck. NECK: JVD not raised. Mass not palpable respiratory effort normal. LUNGS: Clear. CARDIOVASCULAR: 1st and 2nd heart sounds muffled. No edema. ABDOMEN: Soft, nontender. Liver and spleen not palpable. LYMPHATIC: No lymph nodes palpable in the neck or axillae. PSYCHIATRY: Alert and oriented x3. Mood and affect normal. NEUROLOGICAL: Pupils equal. Cranial nerves grossly intact. Power and sensation grossly intact. MUSCULOSKELETAL: Evidence of osteoarthritis especially the hands and knees. INVESTIGATIONS: White count 7.7, hemoglobin 14, platelets 181. Potassium 5.3, BUN 21, creatinine 0.73. Troponin 0.014 and 2.6. Cardiac catheterization showed heavily calcified coronary arteries. Critical stenosis of the distal RCA with subtotal occlusion, in-situ stenosis of the mid LAD and first diagonal branch and also moderate disease in the left circumflex. Dr. Morris did proceed with intervention to the RCA. ASSESSMENT: 1. Acute non-Q-wave myocardial infarction. 2. Coronary artery disease with intervention to the RCA with stent. 3. Gastroesophageal reflux disease. 4. Hyperlipidemia. 5. Essential hypertension. 6. Primary osteoarthritis. 7. Peripheral neuropathy, bilateral feet, idiopathic. 8. Chronic urinary stress incontinence. PLAN: The patient is currently on aspirin, Lipitor, Imdur, Zestril, Lopressor, Brilinta. Care was discussed with the patient. Questions were answered. Follow up with Cardiology. MMODL / IJN: [id number] /
[2018-11-11 07:35] LABS: Mean Platelet Volume 6.9; Platelet Count 166 k/uL (150-450)
[2018-11-11 07:56] LABS: Potassium 4.4 mmol/L (3.5-5.1)
[2018-11-11] MEDS: LISINOPRIL 20 MG TAB PO SCH ×2 (08:31→21:02)
[2018-11-11] MEDS: METOPROLOL TARTRATE 50 MG TAB PO SCH (08:31)
[2018-11-11] MEDS: ASPIRIN 81 MG PO SCH (08:31)
[2018-11-11] MEDS: TICAGRELOR 90 MG TAB PO SCH ×2 (08:31→21:02)
[2018-11-11] MEDS ORDERED: ASPIRIN 325 MG TAB PO SCH (09:00)
[2018-11-11] MEDS ORDERED: ACETAMINOPHEN TAB 500 MG TAB PO PRN (11:09)
--- NOTE | 2018-11-11 12:41 | P.CRDCN ---
History of Present Illness History of present illness: Patient is doing well. She is resting comfortably in bed. She underwent coronary angiography yesterday and underwent coronary stenting Mid LAD 95% stenosis, long tubular Diet low branch mid segment 80% stenosis The dominant left circumflex, 40% stenosis Heavily calcified RCA with a 99% stenosis at the bifurcation Mid segment has a 70% plaque RC stenting performed Patient is doing well no dizziness lightheadedness or palpitations or chest pain. She feels a lot better now she feels very different Heart sounds are normal no murmurs no gallops Breath sounds are clear no rhonchi no crackles Abdomen is soft nontender Access sites have healed well Blood pressure 133/67 144/94 mmHg Pulse rate in the 60s Afebrile temperature 97.9F I had a detailed discussion with her regarding the importance of statins. She has tried at least 5 different statins and has stopped myopathy which is very bothersome to her did as an outpatient will treat her with generic fluvastatin ER She also had an episode of bradycardia last evening and therefore I will switch her to carvedilol 20 Plan Continue aspirin 81 mg by mouth daily continue Brilinta 90 mg twice daily Continue atorvastatin 40 mg daily Carvedilol 6.25 mg twice daily Lisinopril 20 mg twice daily Impression Unstable angina. Rising troponin after Loi stenting Elevated triglycerides of 352 Low HDL Hypertension Coronary artery disease involving RCA status post successful stenting Coronary artery disease involving the LAD awaiting Loi stenting in the next 1- 2 weeks electively as an outpatient The plan is medical management hypertension management [place] next week and then set her up for an outpatient elective stenting Past Medical History Past Medical History: Coronary Artery Disease (CAD), Deep Vein Thrombosis (DVT), GERD/Reflux, Hyperlipidemia, Hypertension, Myocardial Infarction ([place]), Osteoarthritis (OA) Additional Past Medical History / Comment(s): 01/2017 concussion, high cholesterol-does not tolerate statins, arthritis bilateral hands, neuropathy bilateral feet, past R ankle fracture, DVT R leg many years ago, urinary stress incontinence. Last Myocardial Infarction Date:: 2002 History of Any Multi-Drug Resistant Organisms: None Reported Past Surgical History: Adenoidectomy, Appendectomy, Heart Catheterization With Stent, Hysterectomy, Orthopedic Surgery, Tonsillectomy Additional Past Surgical History / Comment(s): 2003 Coronary stenting, bilateral cataract removal with lens implants, colonoscopy, laparoscopic surgery for abdominal adhesions, R knee arthroscopic surgery. Past Anesthesia/Blood Transfusion Reactions: No Reported Reaction Date of Last Stent Placement:: 2002 Smoking Status: Former smoker - Past Family History Father Family Medical History: Cancer, Coronary Artery Disease (CAD) Additional Family Medical History / Comment(s): Pt was estranged from her father. She thinks he had some form of cancer and heart disease-he at the age of 54yrs. Mother Family Medical History: Coronary Artery Disease (CAD), Diabetes Mellitus Additional Family Medical History / Comment(s): Mother at the age of 72 yr s. Medications and Allergies Home Medications Medication Instructions Recorded Confirmed Type RX: Aspirin EC [Ecotrin Low Dose] 81 mg PO BID 01/27/17 11/10/18 History RX: Lisinopril [Zestril] 20 mg PO BID 01/27/17 11/10/18 History RX: Metoprolol Tartrate [Lopressor] 50 mg PO BID 01/27/17 11/10/18 History RX: Multivitamins, Thera 1 tab PO DAILY 01/27/17 11/10/18 History [Multivitamin (formulary)] RX: Vits A,C,E/Lutein/Minerals 1 tab PO DAILY 05/20/17 11/10/18 History [Ocuvite with Lutein Tablet] Calcium Carbonate [Calcium] 600 mg PO DAILY 11/10/18 11/10/18 History Ubidecarenone [Co Q-10] 300 mg PO DAILY 11/10/18 11/10/18 History Allergies Allergy/AdvReac Type Severity Reaction Status Date / Time Sulfa (Sulfonamide Allergy Unknown Verified 11/10/18 13:50 Antibiotics) Physical Exam Vitals: Vital Signs Temp Pulse Pulse Resp BP BP Pulse Ox 11/11/18 11:10 97.9 F 64 16 144/94 96 11/11/18 08:00 98.1 F 69 18 133/67 97 11/11/18 04:00 97.7 F 16 135/60 97 11/11/18 00:00 98.3 F 16 149/67 96 11/10/18 20:30 98.6 F 50 L 16 110/53 96 11/10/18 18:45 18 184/76 98 11/10/18 18:15 20 191/78 96 11/10/18 18:00 20 180/79 97 11/10/18 12:44 98 F 63 18 141/65 Intake and Output 11/10/18 11/11/18 11/11/18 22:59 06:59 14:59 Intake Total 234 240 Output Total 600 Balance 234 -600 240 Intake: IV 234 Oral 240 Output: Urine 600 Other: # Voids 1 3 1 Weight 68.5 kg Results 11/11/18 07:18 11/11/18 07:18 Cardiac Enzymes 11/10/18 11/10/18 11/10/18 Range/Units 13:30 13:30 13:30 AST 40 H (14-36) U/L CK-MB (CK-2) 1.5 (0.0-2.4) ng/mL Troponin I 0.014 (0.000-0.034) ng/mL 11/10/18 Range/Units 19:10 AST (14-36) U/L CK-MB (CK-2) (0.0-2.4) ng/mL Troponin I 2.690 H* (0.000-0.034) ng/mL Coagulation 11/10/18 11/10/18 11/11/18 Range/Units 13:30 13:30 01:52 PT 10.9 (9.0-12.0) sec APTT 113.3 H* 23.4 (22.0-30.0) sec 11/11/18 Range/Units 07:18 PT (9.0-12.0) sec APTT 23.5 (22.0-30.0) sec Lipids 11/11/18 Range/Units 07:18 Triglycerides 352 H (<150) mg/dL Cholesterol 174 (<200) mg/dL HDL Cholesterol 29 L (40-60) mg/dL CBC 11/10/18 11/11/18 Range/Units 13:30 07:18 WBC 7.7 (3.8-10.6) k/uL RBC 4.55 (3.80-5.40) m/uL Hgb 14.0 (11.4-16.0) gm/dL Hct 43.9 (34.0-46.0) % Plt Count 181 166 (150-450) k/uL Comprehensive Metabolic Panel 11/10/18 11/11/18 Range/Units 13:30 07:18 Sodium 140 140 (137-145) mmol/L Potassium 5.3 H 4.4 (3.5-5.1) mmol/L Chloride 107 110 H (98-107) mmol/L Carbon Dioxide 21 L 21 L (22-30) mmol/L BUN 21 H 16 (7-17) mg/dL Creatinine 0.73 0.76 (0.52-1.04) mg/dL Glucose 110 H 104 H (74-99) mg/dL Calcium 9.3 9.0 (8.4-10.2) mg/dL AST 40 H (14-36) U/L ALT 38 (9-52) U/L Alkaline Phosphatase 70 (38-126) U/L Total Protein 8.1 (6.3-8.2) g/dL Albumin 4.6 (3.5-5.0) g/dL Current Medications Generic Name Dose Route Start Last Admin Trade Name Freq PRN Reason Stop Dose Admin Acetaminophen 500 mg 11/11/18 11:09 11/11/18 11:25 Tylenol Tab PO 500 mg Q6HR PRN Administration Fever and/ or Pain Al Hydroxide/Mg Hydroxide 30 ml 11/10/18 17:29 Maalox PO Q4HR PRN Heartburn Aspirin 81 mg 11/11/18 09:00 11/11/18 08:31 Aspirin PO 81 mg DAILY [facility] Administration Atorvastatin Calcium 40 mg 11/11/18 21:00 Lipitor PO HS [facility] Atropine Sulfate 0.5 mg 11/10/18 17:29 Atropine IV ONCE PRN Symptomatic Bradycardia Carvedilol 6.25 mg 11/11/18 17:30 Coreg PO BID-W/MEALS [facility] Lisinopril 20 mg 11/10/18 21:00 11/11/18 08:31 Zestril PO 20 mg BID MELVIN Administration Miscellaneous Information 1 each 11/10/18 17:29 Rx Info: Iv Contrast Was Given MISCELLANE 11/12/18 17:30 DAILY PRN Per Protocol Nitroglycerin 0.4 mg 11/10/18 17:29 Nitrostat SUBLINGUAL Q5M PRN Chest Pain Sodium Chloride 10 ml 11/10/18 21:00 11/11/18 08:33 Saline Flush IV 10 ml BID [facility] Administration Ticagrelor 90 mg 11/10/18 21:00 11/11/18 08:31 Brilinta PO 90 mg BID [facility] Administration Zolpidem Tartrate 5 mg 11/10/18 17:29 Ambien PO HS PRN Insomnia Intake and Output 11/10/18 11/11/18 11/11/18 22:59 06:59 14:59 Intake Total 234 240 Output Total 600 Balance 234 -600 240 Intake: IV 234 Oral 240 Output: Urine 600 Other: # Voids 1 3 1 Weight 68.5 kg 11/11/18 07:18 11/11/18 07:18
[2018-11-11 14:08] VITALS: BMI 28.5
[2018-11-11] MEDS: CARVEDILOL 6.25 MG TAB PO SCH (17:28)
--- NOTE | 2018-11-11 19:10 | ECHOF ---
Referral Reason:acs MEASUREMENTS -------- HEIGHT: 152.4 cm WEIGHT: 67.1 kg BP: RVIDd: 2.4 cm (< 3.3) IVSd: 1.4 cm (0.6 - 1.1) LVIDd: 3.9 cm (3.9 - 5.3) LVPWd: 0.9 cm (0.6 - 1.1) IVSs: 1.6 cm LVIDs: 3.0 cm LVPWs: 1.3 cm LA Diam: 3.9 cm (2.7 - 3.8) Ao Diam: 2.6 cm (2.0 - 3.7) AV Cusp: 1.4 cm (1.5 - 2.6) LA Diam: 4.4 cm (2.7 - 3.8) MV EXCURSION: 18.395 mm (> 18.000) MV EF SLOPE: 121 mm/s (70 - 150) EPSS: 0.3 cm MV E Almas: 1.01 m/s MV DecT: 133 ms MV A Almas: 0.77 m/s MV E/A Ratio: 1.32 AR PHT: 455 ms RAP: 5.00 mmHg RVSP: 42.49 mmHg FINDINGS -------- Sinus rhythm. This was a techncally difficult study with suboptimal views, , Definity utilized for enhancement of i mages. The left ventricular size is normal. There is moderate concentric left ventricular hypertrophy. O verall left ventricular systolic function is low-normal with, an EF between 50 - 55 %. Inferior Hyp okinesis Basal septal hypokinesis The right ventricle is normal in size. The left atrium is mildly dilated. The right atrial size is normal. Lumason used There is mild aortic valve sclerosis. There is mild aortic regurgitation. The mitral valve leaflets are mildly thickened. Mild mitral annular calcification present. Modera te mitral regurgitation is present. Mild tricuspid regurgitation present. There is mild pulmonary hypertension. The right ventricular systolic pressure, as measured by Doppler, is 42.49mmHg. There is no pulmonic regurgitation present. The aortic root size is normal. There is no pericardial effusion. CONCLUSIONS -------- 1. This was a techncally difficult study with suboptimal views, , Definity utilized for enhancement o f images. 2. The left ventricular size is normal. 3. There is moderate concentric left ventricular hypertrophy. 4. Overall left ventricular systolic function is low-normal with, an EF between 50 - 55 %. 5. Inferior Hypokinesis 6. Basal septal hypokinesis 7. The right ventricle is normal in size. 8. The left atrium is mildly dilated. 9. The right atrial size is normal. 10. Lumason used 11. There is mild aortic valve sclerosis. 12. There is mild aortic regurgitation. 13. The mitral valve leaflets are mildly thickened. 14. Mild mitral annular calcification present. 15. Moderate mitral regurgitation is present. 16. Mild tricuspid regurgitation present. 17. There is mild pulmonary hypertension. 18. The right ventricular systolic pressure, as measured by Doppler, is 42.49mmHg. 19. There is no pulmonic regurgitation present. 20. The aortic root size is normal. 21. There is no pericardial effusion. [employer] SUPERVISOR: Jana Parkinson RDCS
[2018-11-11] MEDS ORDERED: ATORVASTATIN 40 MG TAB PO SCH (21:00)
--- NOTE | 2018-11-11 23:25 | PN ---
PROGRESS NOTE DATE OF SERVICE: November 11, 2018. PRESENTING COMPLAINT: Chest pain. INTERVAL HISTORY: This is a patient with acute MT, had coronary intervention and 1 stent. The patient will have further intervention down the road. Currently feels a bit tired though sitting up on a chair. No chest pain or short of breath. Family is present. Did get up to the bathroom next. REVIEW OF SYSTEMS: Done for constitutional, cardiovascular, GI, pulmonary and relevant findings as above. CURRENT MEDICATIONS: Reviewed that include an aspirin, Coreg, Brilinta, Lipitor. PHYSICAL EXAMINATION: VITAL SIGNS: Temperature 97.3, pulse 64, respiratory 20, blood pressure 160/67, pulse ox 97% on room air. GENERAL APPEARANCE: Sitting up in a chair, tired-appearing. EYES: Pupils equal. Conjunctivae normal. NECK JVD not raised. Mass not palpable. RESPIRATORY: Effort normal. LUNGS: Fair air entry. CARDIOVASCULAR: 1st and 2nd sounds normal. No edema. ABDOMEN: Soft, nontender. Liver and spleen not palpable. PSYCHIATRY: Alert and oriented x3. Mood and affect normal. INVESTIGATIONS: Potassium 4, BUN and creatinine is normal. LDL 75. ASSESSMENT: 1. Acute non-Q-wave myocardial infarction. 2. Coronary artery with intervention to the RCA with stent. 3. Gastroesophageal reflux disease. 4. Hyperlipidemia. 5. Essential hypertension. 6. Primary osteoarthritis. 7. Idiopathic peripheral neuropathy in both the feet. 8. Chronic urinary stress incontinence. 9. Moderate mitral regurgitation, nonrheumatic. PLAN: Continue current medication and treatment plan. The patient will have staged further coronary intervention. Patient did have intervention of the RCA. Further down the road LAD will be addressed. MMODL / IJN: [id number] /
[2018-11-12 00:21] VITALS: RESP 18
[2018-11-12] MEDS: CARVEDILOL 6.25 MG TAB PO SCH (06:57)
[2018-11-12 07:08] LABS: Platelet Count 154 k/uL (150-450)
[2018-11-12] MEDS: TICAGRELOR 90 MG TAB PO SCH (08:38)
[2018-11-12] MEDS: ASPIRIN 81 MG PO SCH (08:38)
[2018-11-12] MEDS: LISINOPRIL 20 MG TAB PO SCH (08:38)
[2018-11-12 11:49] VITALS: PULSE 70
[2018-11-12 11:50] VITALS: BP 130/70; TEMP 97.6
--- NOTE | 2018-11-12 14:26 | P.PN ---
Subjective Patient is doing well. She is asymptomatic. She's been ambulating in the room No respiratory distress no chest pain no dizziness lightheadedness She is afebrile 97.6F Pulse rate in the 70s Normal respirations Blood pressure 130/70 mmHg Breath sounds are clear no rhonchi no crackles Heart sounds S1 and S2 are normal no murmurs or gallops or rub Extremities are warm no edema Impression Acute cardiac syndrome unstable angina Past history of coronary artery disease status post Loi stenting Patient underwent coronary stenting this time and is awaiting LAD stenting in the next 1-2 weeks Hypertension History of statin myopathy Plan Patient go home today on dual antiplatelet therapy including Brilinta Although she is intolerant of atorvastatin I would treat her with atorvastatin for about a month and then switched to Lescol XL Continue beta blockers and antihypertensive therapy Continue carvedilol 6.25 mg twice daily continue lisinopril 20 mg twice daily Outpatient coronary stenting of the mid LAD 95% long tubular stenosis of 95% Diagonal branch has an 80% stenosis She is heavily calcified coronary arteries and she underwent stenting of the critical distal RCA which was a sub-totally occluded culprit vessel There is moderate disease in the left circumflex nonobstructive Objective - Vital Signs Vital signs: Vital Signs Temp 97.6 F 11/12/18 11:49 Pulse 70 11/12/18 11:49 Resp 18 11/12/18 11:49 BP 130/70 11/12/18 11:49 Pulse Ox 98 11/12/18 11:49 Intake & Output 11/11/18 11/12/18 11/12/18 18:59 06:59 18:59 Intake Total 600 480 Balance 600 480 Weight 68.5 kg 67.7 kg Intake: Oral 600 480 Other: Voiding Method Toilet # Voids 2 0 1 # Bowel Movements 0 - Labs CBC & Chem 7: 11/12/18 06:12 11/11/18 07:18
--- NOTE | 2018-11-14 17:37 | DS ---
DISCHARGE SUMMARY DATE OF ADMISSION: 11/10/18. DATE OF DISCHARGE: 11/14/18. FINAL DIAGNOSES: 1. Acute non-Q-wave myocardial infarction. 2. Coronary artery disease with intervention to the RCA with stent. 3. Gastroesophageal reflux disease. 4. Hyperlipidemia. 5. Essential hypertension. 6. Primary osteoarthritis. 7. Idiopathic peripheral neuropathy in both feet. 8. Chronic urinary stress incontinence. 9. Moderate mitral regurgitation, nonrheumatic. HOSPITAL COURSE: This patient presented with acute UT. Cardiac cath showed significant disease. Stent was put to the above vessel. The patient will come back for more intervention. The patient was symptom free at the same time of discharge. No chest pain or shortness of breath. The patient's 2D echocardiogram showed EF of 50-55 percent and moderate mitral regurgitation. CONSULTATION: 1. Dr. Edgardo Quan from Cardiology. 2. Dr. Morris from Interventional cardiology. PHYSICAL EXAMINATION: Temperature 97.6 pulse 72, respiratory 18, blood pressure 130/70, pulse ox 98% on room air. Lungs: Fair entry. Cardiovascular: 1st and 2nd sounds normal. INVESTIGATIONS: Potassium 4.4, BUN 16, creatinine 0.76, LDL 75. DISCHARGE MEDICATIONS: 1. Multivitamin 1 tablet p.o. daily. 2. Ocuvite with lutein 1 tablet p.o. daily. 3. Calcium 600 mg p.o. daily. 4. COQ-10 3 mg p.o. daily. 5. Aspirin 81 mg p.o. daily. 6. Lipitor 40 mg at bedtime. 7. Coreg 6.25 p.o. b.i.d. 8. Zestril 20 mg p.o. daily. 9. Nitrostat 0.4 sublingual q.5 p.r.n. 10.Brilinta 90 mg p.o. b.i.d. FOLLOWUP: Follow up with Dr. Morris in 2 weeks, follow Dr. Prasanna Solis on 11/17/18. ADDITIONAL INFORMATION: Patient is advised to postpone knee surgery until further evaluation and outpatient followup. MMODL / IJN: [id number] /
== END 2018-11-12 15:08 | disposition home or self-care (01) | DRG 247 ==
LOC: EC 12:35 → 3SCARD 13:26
PROVIDERS: ADMIT Hospitalist; ATTEND Hospitalist
PROC: 027036Z Dilation of Coronary Artery, One Artery with Three Drug-eluting Intraluminal Devices, Percutaneous Approach (ICD-10-PCS; principal; 2018-11-10 15:20)
PROC: B2111ZZ Fluoroscopy of Multiple Coronary Arteries using Low Osmolar Contrast (ICD-10-PCS; 2018-11-10 15:20)
DX: I21.4 Non-ST elevation (NSTEMI) myocardial infarction (principal); G72.0 Drug-induced myopathy; I25.10 Atherosclerotic heart disease of native coronary artery without angina pectoris; E78.00 Pure hypercholesterolemia, unspecified; E78.1 Pure hyperglyceridemia; E78.5 Hyperlipidemia, unspecified; G60.9 Hereditary and idiopathic neuropathy, unspecified; I10 Essential (primary) hypertension; I25.110 Atherosclerotic heart disease of native coronary artery with unstable angina pectoris; I34.0 Nonrheumatic mitral (valve) insufficiency; K21.9 Gastro-esophageal reflux disease without esophagitis; M19.91 Primary osteoarthritis, unspecified site; N39.3 Stress incontinence (female) (male); T46.6X5A Adverse effect of antihyperlipidemic and antiarteriosclerotic drugs, initial encounter; F32.9 Major depressive disorder, single episode, unspecified; I25.2 Old myocardial infarction; Z79.82 Long term (current) use of aspirin; Z79.899 Other long term (current) drug therapy; Z88.2 Allergy status to sulfonamides; Z86.718 Personal history of other venous thrombosis and embolism; Z98.42 Cataract extraction status, left eye; Z98.41 Cataract extraction status, right eye; Z96.1 Presence of intraocular lens; Z90.710 Acquired absence of both cervix and uterus; Z87.891 Personal history of nicotine dependence; Z87.820 Personal history of traumatic brain injury; Z90.49 Acquired absence of other specified parts of digestive tract; Z82.49 Family history of ischemic heart disease and other diseases of the circulatory system; Z83.3 Family history of diabetes mellitus; Z85.9 Personal history of malignant neoplasm, unspecified
CPT/HCPCS: 71045; 80048; 80053; 80061; 82550; 82553; 83735; 84484; 85025; 85049; 85610; 85730; 93306; 93454; 96365; 96366; 96375; 99285; C1874

== ENCOUNTER 2018-12-01 10:18 | Day surgery (SDC) | payer MEDICARE, OTHER ==
[2018-11-26 09:48] VITALS: BMI 28.1
[~2018-12-01 10:18] MED LIST: ALPRAZolam 0.25 MG TAB PO PRN; ALPRAZolam 0.5 MG TAB PO PRN; ASPIRIN 325 MG TAB PO ONE; ATORVASTATIN 80 MG TAB PO ONE; NITROGLYCERIN SL TABS 0.4 MG TAB SUBLINGUAL PRN; SODIUM CHLORIDE 0.9% 1,000 ML in EMPTY BAG 1 BAG IV ONE
[2018-12-01] MEDS ORDERED: LIDOCAINE 1% INJ 10MG/ML (20 ML MDV) ONE (11:44)
[2018-12-01] MEDS ORDERED: HEPARIN SODIUM 1,000 UN/ML (10ML VL) ONE (11:44)
[2018-12-01] MEDS ORDERED: VERAPAMIL 2.5 MG/ML 2 ML AMP ONE (11:44)
[2018-12-01] MEDS ORDERED: fentaNYL (PF) 50 MCG/ML 2 ML AMP ONE (11:44)
[2018-12-01 11:51] LABS: Basophils % (A) 1 %; Eosinophils # (A) 0.2 k/uL (0-0.7); Eosinophils % (A) 3 %; HCT 41.2 % (34.0-46.0); HGB 13.9 gm/dL (11.4-16.0); Lymphocytes # (A) 1.5 k/uL (1.0-4.8); Lymphocytes % (A) 24 %; MCH 31.7 pg (25.0-35.0); MCHC 33.7 g/dL (31.0-37.0); MCV 94.1 fL (80.0-100.0); Mean Platelet Volume 7.2; Monocytes # (A) 0.3 k/uL (0-1.0); Monocytes % (A) 5 %; Neutrophils % (A) 64 %; Platelet Count 179 k/uL (150-450); RBC 4.37 m/uL (3.80-5.40); RDW 12.9 % (11.5-15.5); WBC 6.3 k/uL (3.8-10.6)
[2018-12-01 12:15] LABS: Calcium 9.7 mg/dL (8.4-10.2); Potassium 4.8 mmol/L (3.5-5.1)
[2018-12-01] MEDS ORDERED: fentaNYL (PF) 50 MCG/ML 2 ML AMP IV ONE (12:23)
[2018-12-01] MEDS ORDERED: LIDOCAINE 1% INJ 10MG/ML (20 ML MDV) SQ ONE (12:29)
[2018-12-01] MEDS ORDERED: MIDAZOLAM (PF) 2 MG/2 ML VIAL IVP ONE (12:31)
[2018-12-01] MEDS ORDERED: VERAPAMIL SYRINGE (5 MG/10 ML) INTRAARTER ONE (12:32)
[2018-12-01] MEDS ORDERED: BIVALIRUDIN BOLUS 250 MG/50 ML IV ONE (12:33)
[2018-12-01] MEDS ORDERED: BIVALIRUDIN 250 MG in SODIUM CHLORIDE 0.9% 50 ML IV ONE (12:33)
[2018-12-01] MEDS: NITROGLYCERIN 1000MCG/10ML SYRINGE INTRACORON ONE ×3 (12:47→12:58)
[2018-12-01] MEDS ORDERED: IOPAMIDOL-370 125ML BTL INJ ONE (12:59)
[2018-12-01] MEDS ORDERED: IOPAMIDOL-370 100ML BTL INJ ONE (13:09)
[2018-12-01] MEDS ORDERED: amLODIPine 5 MG TAB ONE (13:15)
[2018-12-01] MEDS ORDERED: ZOLPIDEM 5 MG TAB PO PRN (13:17)
[2018-12-01] MEDS ORDERED: RX INFO: IV CONTRAST WAS GIVEN 1 EACH MISC MISCELLANE PRN (13:17)
[2018-12-01] MEDS ORDERED: ATROPINE SULFATE 0.1 MG/ML 10ML SYRINGE IV PRN (13:17)
[2018-12-01] MEDS ORDERED: NITROGLYCERIN SL TABS 0.4 MG TAB SUBLINGUAL PRN (13:17)
[2018-12-01] MEDS ORDERED: MAG HYDROX/AL HYDROX/SIMETH 30 ML CUP PO PRN (13:17)
[2018-12-01] MEDS ORDERED: SODIUM CHLORIDE 0.9% 1,000 ML IV SCH (13:30)
[2018-12-01] MEDS ORDERED: PRASUGREL 10 MG TAB ONE (14:03)
[2018-12-01] MEDS: CARVEDILOL 6.25 MG TAB PO SCH (15:47)
--- NOTE | 2018-12-01 16:54 | PTCA ---
PERCUTANEOUSTRANS CORORONARY ANGIOGRAPHY Mrs. Grimaldo is an 83-year-old female with known history of coronary artery disease, history of hyperlipidemia, who presented with an acute myocardial infarction a few weeks ago, underwent stenting of her right coronary artery and was found to have significant obstructive disease involving the LAD. In view of that, recommendation was made regarding angioplasty and stenting. The procedure, its risks and complications were discussed with the patient, who was in full understanding and agreement. PROCEDURE: Patient was brought to the laboratory geneticist in a fasting semi-sedated state after receiving fentanyl and Benadryl and achieving a moderate conscious sedated state. Using Xylocaine anesthesia and Seldinger technique, a 6-Czech sheath was introduced in the right radial artery. Attempts to cannulate the left main using a 6-Czech EBU 3.75 guiding catheter were unsuccessful. That guiding catheter was removed and a 6- Czech 3.5 FL guiding catheter was introduced into the system. After cannulating the left main, a 0.014 balanced medium-weight J-wire was advanced across the lesion, positioned distally, and then a 2.5 x 15 mm Trek balloon was advanced. One inflation at 8 atmospheres was done. Following that the balloon was removed and a 2.5 x 23 mm Xience Jennifer stent was deployed and post dilated at 16 atmospheres. Following that, proximal to that stent, a 2.5 x 12 mm Xience Jennifer stent was deployed, post dilated at 16 atmospheres. After the last inflation, after appropriate wait, the balloon and the guidewire were withdrawn back into the guiding catheter. Images were obtained and repeated. Those images revealed stable successful stenting. At that point, the guiding catheter, the balloon and the guidewire were removed. The sheath was removed. Hemostasis was obtained with deployment of a TR band. There was no immediate complication. Patient was returned to her room in stable condition. Of note, the patient had chest discomfort and EKG changes with the inflation that resolved at the end of the procedure. RESULTS: Successful stenting of the mid LAD with reduction of stenosis from 90% to 0%. RECOMMENDATIONS: The patient will be continued on aspirin, Brilinta, beta arie and statin. The importance of dual antiplatelet treatment was discussed with the patient and her family, and they are in full understanding and agreement. Duration of procedure was 37 minutes. MMODL / IJN: [id number] / POLA
[2018-12-01] MEDS: LISINOPRIL 20 MG TAB PO SCH (20:43)
[2018-12-02] MEDS: CARVEDILOL 6.25 MG TAB PO SCH (06:34)
[2018-12-02 06:38] VITALS: TEMP 98
[2018-12-02] MEDS: LISINOPRIL 20 MG TAB PO SCH (07:53)
--- NOTE | 2018-12-02 07:58 | PN ---
PROGRESS NOTE Mrs. Grimaldo is an 83-year-old female with known history of coronary artery disease who recently presented with an inferior myocardial infarction, underwent stenting for her RCA. She was found at that time to have significant obstructive disease involving the LAD and underwent stenting of that vessel yesterday. She is doing well this morning. Her breathing is stable. She is denying any chest pain, no dizziness, no palpitation. She is ambulating without difficulty. She continued be on aspirin once a day, Lipitor 40 mg daily, Coreg 6.5 mg twice a day, lisinopril 20 mg twice a day, and amlodipine 5 mg daily and Brilinta 90 mg twice a day. PHYSICAL EXAMINATION: Blood pressure 130/70 with a heart rate in 60's. During the evening, she had some sinus pauses. LUNGS: Clear. HEART: Regular rate and rhythm. S1, S2. No S3. No rub. ABDOMEN: Soft, nontender. EXTREMITIES: No edema, right radial pulse intact. LAB DATA: Revealed BUN and creatinine 26 and 0.88. Potassium 4.8. IMPRESSION: 1. Status post stenting of the left anterior descending artery. 2. Prior history of myocardial infarction and stenting of the right coronary artery. 3. Hypertension. 4. Hyperlipidemia. RECOMMENDATION: Patient will be discharged home today and followed as an outpatient. MMODL / IJN: [id number] /
[2018-12-02 08:02] VITALS: BP 112/67; PULSE 65; RESP 18
[2018-12-02 08:12] LABS: Calcium 9.2 mg/dL (8.4-10.2); Potassium 4.5 mmol/L (3.5-5.1)
[2018-12-02] MEDS ORDERED: CALCIUM CARB-VIT D 500MG-200UN 1 EACH TAB PO SCH (09:00)
[2018-12-02] MEDS ORDERED: ASPIRIN 81 MG PO SCH (09:00)
[2018-12-02] MEDS ORDERED: TICAGRELOR 90 MG TAB PO SCH (09:00)
[2018-12-02] MEDS ORDERED: ATORVASTATIN 40 MG TAB PO SCH (09:00)
[2018-12-02] MEDS ORDERED: amLODIPine 5 MG TAB PO SCH (09:00)
== END 2018-12-02 09:21 | disposition home or self-care (01) ==
LOC: CATHCVL 10:18 → 3SCARD 15:06 → CATHCVL 12-02 09:21
PROVIDERS: ATTEND Internal Medicine Interventional Cardiology
DX: I25.10 Atherosclerotic heart disease of native coronary artery without angina pectoris (principal); I10 Essential (primary) hypertension; Z72.0 Tobacco use; Z82.49 Family history of ischemic heart disease and other diseases of the circulatory system; E78.5 Hyperlipidemia, unspecified; I25.2 Old myocardial infarction; Z95.5 Presence of coronary angioplasty implant and graft; Z79.02 Long term (current) use of antithrombotics/antiplatelets; Z79.82 Long term (current) use of aspirin; Z79.899 Other long term (current) drug therapy; Z88.2 Allergy status to sulfonamides
CPT/HCPCS: 85347; 80048 ×2; 85025; C9600; C1769 ×2; C1887 ×2; C1725; C1874; J2001; J3010; J0583; Q9967 ×2; J2250

== ENCOUNTER 2019-02-05 08:55 | Observation (INO) | payer MEDICARE, OTHER ==
[2019-02-05] MEDS ORDERED: SODIUM CHLORIDE 0.9% 500 ML 500 ML IV STA (09:19)
[2019-02-05 09:56] LABS: Basophils % (A) 0 %; Eosinophils # (A) 0.2 k/uL (0-0.7); Eosinophils % (A) 3 %; HCT 38.4 % (34.0-46.0); HGB 12.7 gm/dL (11.4-16.0); Lymphocytes # (A) 1.3 k/uL (1.0-4.8); Lymphocytes % (A) 14 %; MCH 30.7 pg (25.0-35.0); MCHC 33.2 g/dL (31.0-37.0); MCV 92.5 fL (80.0-100.0); Mean Platelet Volume 7.5; Monocytes # (A) 0.5 k/uL (0-1.0); Monocytes % (A) 5 %; Neutrophils # (A) 7.1 k/uL (1.3-7.7); Neutrophils % (A) 77 %; Platelet Count 160 k/uL (150-450); RBC 4.15 m/uL (3.80-5.40); RDW 13.4 % (11.5-15.5); WBC 9.2 k/uL (3.8-10.6)
[2019-02-05 10:03] LABS: Albumin 4.2 g/dL (3.5-5.0); Calcium 9.5 mg/dL (8.4-10.2); Magnesium 1.8 mg/dL (1.6-2.3); Potassium 4.5 mmol/L (3.5-5.1); Total Bilirubin 0.5 mg/dL (0.2-1.3); Total Protein 6.9 g/dL (6.3-8.2)
[2019-02-05 10:10] LABS: Partial Thromboplastin Time 24.3 sec (22.0-30.0); Prothrombin Time 10.5 sec (9.0-12.0)
[2019-02-05] MEDS ORDERED: SODIUM CHLORIDE 0.9% 1,000 ML IV ONE (10:42)
--- NOTE | 2019-02-05 10:42 | ED ---
General Adult HPI - General Chief complaint: GI Bleed Stated complaint: RECTAL BLEEDING Time Seen by Provider: 02/05/19 09:00 Source: patient, RN notes reviewed Mode of arrival: ambulatory Limitations: no limitations - History of Present Illness Initial comments: This is an 83-year-old female presents to the emergency department with a complaint of rectal bleeding. Patient states it started last evening she continues today. Patient states when she feels as though she needs to have a bowel movement all she has is bright red blood. Patient denies any rectal pain patient denies any abdominal pain. Patient denies any recent fever chills or cough. Patient denies being on blood thinners. Patient denies any recent diarrhea. Patient denies any nausea vomiting. Patient denies any shortness of breath or difficulty breathing. Patient denies any chest pain. Patient denies any palpitations. Patient denies any lightheadedness dizziness or near syncopal episode. - Related Data Home Medications Medication Instructions Recorded Confirmed Multivitamins, Thera [Multivitamin 1 tab PO DAILY 01/27/17 02/05/19 (formulary)] Atorvastatin [Lipitor] 40 mg PO DAILY 11/26/18 02/05/19 Lisinopril [Zestril] 20 mg PO BID 11/26/18 02/05/19 Aspirin 81 mg PO BID 02/05/19 02/05/19 Calcium Carbonate/Vitamin D3 1 tab PO DAILY 02/05/19 02/05/19 [Calcium 600-Vit D3 200 Tablet] Cholecalciferol [Vitamin D3 (25 1,000 unit PO DAILY 02/05/19 02/05/19 Mcg = 1000 Iu)] Clopidogrel [Plavix] 75 mg PO DAILY 02/05/19 02/05/19 Lutein 10 mg PO DAILY 02/05/19 02/05/19 Ubidecarenone [Co Q-10] 100 mg PO DAILY 02/05/19 02/05/19 Previous Rx's Medication Instructions Recorded Carvedilol [Coreg] 6.25 mg PO BID #60 tablet 11/12/18 Nitroglycerin Sl Tabs [Nitrostat] 0.4 mg SUBLINGUAL Q5M PRN #25 tab 11/12/18 Allergies Allergy/AdvReac Type Severity Reaction Status Date / Time Sulfa (Sulfonamide Allergy Unknown Verified 02/05/19 09:27 Antibiotics) Review of Systems ROS Statement: Those systems with pertinent positive or pertinent negative responses have been documented in the HPI. ROS Other: All systems not noted in ROS Statement are negative. Past Medical History Past Medical History: Coronary Artery Disease (CAD), Chest Pain / Angina, Deep Vein Thrombosis (DVT), Hyperlipidemia, Hypertension, Myocardial Infarction (DC), Osteoarthritis (OA) Additional Past Medical History / Comment(s): 01/2017 concussion, neuropathy feet, Hx- R ankle fracture, DVT R leg .,macular degeneration., DC (2002, 2018)., States left knee pain-cancelled arthroscopy surgery., See Cardiology H&P. Last Myocardial Infarction Date:: NOVEMBER 2018 History of Any Multi-Drug Resistant Organisms: None Reported Past Surgical History: Adenoidectomy, Appendectomy, Heart Catheterization With Stent, Hysterectomy, Orthopedic Surgery, Tonsillectomy Additional Past Surgical History / Comment(s): 2002 Coronary stenting, cataracts with lens implants, colonoscopy, laparoscopic surgery for abdominal adhesions, R knee arthroscopic surgery. Past Anesthesia/Blood Transfusion Reactions: No Reported Reaction Date of Last Stent Placement:: 2002 Past Psychological History: Depression Smoking Status: Former smoker Past Alcohol Use History: Occasional Past Drug Use History: None Reported - Past Family History Father Family Medical History: Cancer, Coronary Artery Disease (CAD) Additional Family Medical History / Comment(s): Pt was estranged from her father. She thinks he had some form of cancer and heart disease-he at the age of 54yrs. Mother Family Medical History: Coronary Artery Disease (CAD), Diabetes Mellitus Additional Family Medical History / Comment(s): Mother at the age of 72 yrs. General Exam - General Exam Comments Initial Comments: GENERAL: Patient is well-developed and well-nourished. Patient is nontoxic and well- hydrated and is in mild distress. ENT: Neck is soft and supple. No significant lymphadenopathy is noted. Oropharynx is clear. Moist mucous membranes. Neck has full range of motion without eliciting any pain. EYES: The sclera were anicteric and conjunctiva were pink and moist. Extraocular movements were intact and pupils were equal round and reactive to light. Eyelids were unremarkable. PULMONARY: Unlabored respirations. Good breath sounds bilaterally. No audible rales rhonchi or wheezing was noted. CARDIOVASCULAR: There is a regular rate and rhythm without any murmurs gallops or rubs. ABDOMEN: Soft and nontender with normal bowel sounds. SKIN: Skin is clear with no lesions or rashes and otherwise unremarkable. NEUROLOGIC: Patient is alert and oriented x3. Cranial nerves II through XII are grossly intact. Motor and sensory are also intact. Normal speech, volume and content. Symmetrical smile. MUSCULOSKELETAL: Normal extremities with adequate strength and full range of motion. LYMPHATICS: No significant lymphadenopathy is noted PSYCHIATRIC: Normal psychiatric evaluation. Limitations: no limitations Course Vital Signs 02/05/19 09:00 Temperature 98.3 F Pulse Rate 65 Respiratory 16 Rate Blood Pressure 194/68 O2 Sat by Pulse 98 Oximetry Medical Decision Making - Medical Decision Making Patient's hemoglobin was stable. I spoke with Dr. Mcconnell he wanted to admit the patient admitted the patient I wrote admitting orders I consulted GI. - Lab Data Result diagrams: 02/05/19 09:35 02/05/19 09:35 Lab Results 02/05/19 02/05/19 02/05/19 Range/Units 09:35 09:35 09:35 WBC 9.2 (3.8-10.6) k/uL RBC 4.15 (3.80-5.40) m/uL Hgb 12.7 (11.4-16.0) gm/dL Hct 38.4 (34.0-46.0) % MCV 92.5 (80.0-100.0) fL MCH 30.7 (25.0-35.0) pg MCHC 33.2 (31.0-37.0) g/dL RDW 13.4 (11.5-15.5) % Plt Count 160 (150-450) k/uL Neutrophils % 77 % Lymphocytes % 14 % Monocytes % 5 % Eosinophils % 3 % Basophils % 0 % Neutrophils # 7.1 (1.3-7.7) k/uL Lymphocytes # 1.3 (1.0-4.8) k/uL Monocytes # 0.5 (0-1.0) k/uL Eosinophils # 0.2 (0-0.7) k/uL Basophils # 0.0 (0-0.2) k/uL PT 10.5 (9.0-12.0) sec INR 1.0 (<1.2) APTT 24.3 (22.0-30.0) sec Sodium 141 (137-145) mmol/L Potassium 4.5 (3.5-5.1) mmol/L Chloride 107 (98-107) mmol/L Carbon Dioxide 23 (22-30) mmol/L Anion Gap 11 mmol/L BUN 24 H (7-17) mg/dL Creatinine 0.86 (0.52-1.04) mg/dL Est GFR (CKD-EPI)AfAm 73 (>60 ml/min/1.73 sqM) Est GFR (CKD-EPI)NonAf 63 (>60 ml/min/1.73 sqM) Glucose 111 H (74-99) mg/dL Calcium 9.5 (8.4-10.2) mg/dL Magnesium 1.8 (1.6-2.3) mg/dL Total Bilirubin 0.5 (0.2-1.3) mg/dL AST 25 (14-36) U/L ALT 28 (9-52) U/L Alkaline Phosphatase 68 (38-126) U/L Troponin I (0.000-0.034) ng/mL Total Protein 6.9 (6.3-8.2) g/dL Albumin 4.2 (3.5-5.0) g/dL 02/05/19 Range/Units 09:35 WBC (3.8-10.6) k/uL RBC (3.80-5.40) m/uL Hgb (11.4-16.0) gm/dL Hct (34.0-46.0) % MCV (80.0-100.0) fL MCH (25.0-35.0) pg MCHC (31.0-37.0) g/dL RDW (11.5-15.5) % Plt Count (150-450) k/uL Neutrophils % % Lymphocytes % % Monocytes % % Eosinophils % % Basophils % % Neutrophils # (1.3-7.7) k/uL Lymphocytes # (1.0-4.8) k/uL Monocytes # (0-1.0) k/uL Eosinophils # (0-0.7) k/uL Basophils # (0-0.2) k/uL PT (9.0-12.0) sec INR (<1.2) APTT (22.0-30.0) sec Sodium (137-145) mmol/L Potassium (3.5-5.1) mmol/L Chloride (98-107) mmol/L Carbon Dioxide (22-30) mmol/L Anion Gap mmol/L BUN (7-17) mg/dL Creatinine (0.52-1.04) mg/dL Est GFR (CKD-EPI)AfAm (>60 ml/min/1.73 sqM) Est GFR (CKD-EPI)NonAf (>60 ml/min/1.73 sqM) Glucose (74-99) mg/dL Calcium (8.4-10.2) mg/dL Magnesium (1.6-2.3) mg/dL Total Bilirubin (0.2-1.3) mg/dL AST (14-36) U/L ALT (9-52) U/L Alkaline Phosphatase (38-126) U/L Troponin I <0.012 (0.000-0.034) ng/mL Total Protein (6.3-8.2) g/dL Albumin (3.5-5.0) g/dL Disposition Clinical Impression: Gastrointestinal hemorrhage Disposition: ADMITTED IP TO THIS HOSP Referrals: Maeve Watkins MD [Primary Care Provider] - 1-2 days Time of Disposition: 10:42
[2019-02-05] MEDS ORDERED: METOPROLOL TARTRATE 5 MG/5 ML VIAL IVP STA (11:25)
[2019-02-05] MEDS ORDERED: LABETALOL SYRINGE 5 MG/ML IVP STA (11:29)
[2019-02-05] MEDS ORDERED: CARVEDILOL 6.25 MG TAB PO STA (11:30)
[2019-02-05] MEDS ORDERED: LISINOPRIL 20 MG TAB PO STA (11:30)
[2019-02-05] MEDS ORDERED: NITROGLYCERIN SL TABS 0.4 MG TAB SUBLINGUAL PRN (12:32)
[2019-02-05] MEDS: CHOLECALCIFEROL 1,000 UNIT TAB PO SCH (14:41)
[2019-02-05 15:00] VITALS: BMI 27.1
[2019-02-05] MEDS ORDERED: hydrALAZINE HCL 20 MG/ML 1 ML VIAL IVP PRN (16:19)
--- NOTE | 2019-02-05 16:43 | P.HPIM ---
History of Present Illness H&P Date: 02/05/19 Zoya Grimaldo is an 83-year-old female who presented to [facility] emergency department with a complaint of rectal bleeding. Patient states it started on the day prior to admission and it continued throughout the day today. Patient states that she has some abdominal cramping as if she needs to have a bowel movement and then passes some bright red blood. Patient denies any rectal pain patient denies any abdominal pain. Patient denies any recent fever chills or cough. Patient stated that she had a myocardial infarction in November 2018 and had 5 stents placed at that time, she is maintained on aspirin and Plavix, which are on hold at this time. Patient denies any recent diarrhea. She denies any previous history of gastrointestinal bleeding, she had a colonoscopy in the past but more than 5 years ago, she denies ever having Crohn's disease or ulcerative colitis, no history of colon cancer. On review of system patient is alert and oriented 3 there is no fever or chills no headache or dizziness no chest pain no shortness of breath no cough no nausea or vomiting no abdominal pain no diarrhea and no urinary symptoms Past Medical History Past Medical History: Coronary Artery Disease (CAD), Chest Pain / Angina, Deep V ein Thrombosis (DVT), Hyperlipidemia, Hypertension, Myocardial Infarction ([place]), Osteoarthritis (OA) Additional Past Medical History / Comment(s): 01/2017 concussion, neuropathy feet, Hx- R ankle fracture, DVT R leg .,macular degeneration., [place] (2002, 2018)., States left knee pain-cancelled arthroscopy surgery., See Cardiology H&P. Last Myocardial Infarction Date:: NOVEMBER 2018 History of Any Multi-Drug Resistant Organisms: None Reported Past Surgical History: Adenoidectomy, Appendectomy, Heart Catheterization With Stent, Hysterectomy, Orthopedic Surgery, Tonsillectomy Additional Past Surgical History / Comment(s): 2002 Coronary stenting, cataracts with lens implants, colonoscopy, laparoscopic surgery for abdominal adhesions, R knee arthroscopic surgery. Past Anesthesia/Blood Transfusion Reactions: No Reported Reaction Date of Last Stent Placement:: 2002 Past Psychological History: Depression Smoking Status: Former smoker Past Alcohol Use History: Occasional Past Drug Use History: None Reported - Past Family History Father Family Medical History: Cancer, Coronary Artery Disease (CAD) Additional Family Medical History / Comment(s): Pt was estranged from her father. She thinks he had some form of cancer and heart disease-he at the age of 54yrs. Mother Family Medical History: Coronary Artery Disease (CAD), Diabetes Mellitus Additional Family Medical History / Comment(s): Mother at the age of 72 yrs. Medications and Allergies Home Medications Medication Instructions Recorded Confirmed Type Multivitamins, Thera [Multivitamin 1 tab PO DAILY 01/27/17 02/05/19 History (formulary)] Carvedilol [Coreg] 6.25 mg PO BID #60 tablet 11/12/18 02/05/19 Rx Nitroglycerin Sl Tabs [Nitrostat] 0.4 mg SUBLINGUAL Q5M PRN #25 tab 11/12/18 02/05/19 Rx Atorvastatin [Lipitor] 40 mg PO DAILY 11/26/18 02/05/19 History Lisinopril [Zestril] 20 mg PO BID 11/26/18 02/05/19 History Aspirin 81 mg PO BID 02/05/19 02/05/19 History Calcium Carbonate/Vitamin D3 1 tab PO DAILY 02/05/19 02/05/19 History [Calcium 600-Vit D3 200 Tablet] Cholecalciferol [Vitamin D3 (25 1,000 unit PO DAILY 02/05/19 02/05/19 History Mcg = 1000 Iu)] Clopidogrel [Plavix] 75 mg PO DAILY 02/05/19 02/05/19 History Lutein 10 mg PO DAILY 02/05/19 02/05/19 History Ubidecarenone [Co Q-10] 100 mg PO DAILY 02/05/19 02/05/19 History Allergies Allergy/AdvReac Type Severity Reaction Status Date / Time Sulfa (Sulfonamide Allergy Unknown Verified 02/05/19 09:27 Antibiotics) Physical Exam Vitals: Vital Signs Temp Pulse Pulse Resp BP BP Pulse Ox 02/05/19 15:18 16 02/05/19 14:47 97.6 F 60 16 183/81 96 02/05/19 13:00 192/64 02/05/19 12:30 60 13 201/71 98 02/05/19 11:30 62 44 H 209/74 98 02/05/19 11:18 62 30 H 200/68 97 02/05/19 11:00 62 30 H 200/68 97 02/05/19 10:30 60 15 190/63 95 07/06/19 10:00 63 24 187/70 95 02/05/19 09:37 62 20 95 02/05/19 09:00 98.3 F 65 16 194/68 98 Intake and Output 02/05/19 02/05/19 02/05/19 06:59 14:59 22:59 Other: Weight 67.132 kg In general patient is alert and oriented 3 in no apparent distress HEENT head normocephalic and atraumatic Neck is supple no JVD no goiter no lymphadenopathy Chest exam reveals a scattered crackles bilaterally no wheezing Cardiac exam reveals regular heart sounds S1 and S2 no gallops no murmurs Abdomen is soft nontender no organomegaly with normal bowel sounds Extremity exam reveals no edema no cyanosis or clubbing Neurological examination reveals no gross focal deficit Results CBC & Chem 7: 02/05/19 09:35 02/05/19 09:35 Labs: Abnormal Lab Results - Last 24 Hours (Table) 02/05/19 Range/Units 09:35 BUN 24 H (7-17) mg/dL Glucose 111 H (74-99) mg/dL Thrombosis Risk Factor Assmnt - Choose All That Apply Each Factor Represents 1 point: Obesity (BMI >25), Varicose veins Other Risk Factors: Yes Each Risk Factor Represents 3 Points: Age 75 years or older Thrombosis Risk Factor Assessment Total Risk Factor Score: 5 Thrombosis Risk Factor Assessment Level: High Risk Assessment and Plan Plan: #1 rectal bleeding #2 recent myocardial infarction in November 2018 with 5 stent placement maintained on aspirin and Plavix now medication are on hold #3 underlying history of hypertension, resume home medications, add hydralazine when necessary #4 underlying history of osteoarthritis At this time patient is admitted to medical floor without holding aspirin and Plavix Gastroenterology consult requested Serial CBCs are ordered Cardiology consult requested in regard to recent myocardial infarction For DVT prophylaxis SCD stockings For GI prophylaxis IV Protonix
[2019-02-05] MEDS: PANTOPRAZOLE 40 MG/10 ML VIAL IVP SCH (17:23)
[2019-02-05] MEDS: CARVEDILOL 6.25 MG TAB PO SCH (20:45)
[2019-02-05] MEDS: LISINOPRIL 20 MG TAB PO SCH (20:45)
--- NOTE | 2019-02-05 22:59 | P.CONS ---
History of Present Illness - Reason for Consult Consult date: 02/05/19 Blood per rectum Requesting physician: Bin Mcconnell - Chief Complaint blood per rectum - History of Present Illness 83-year-old female with a medical history significant for DVT, hyperlipidemia, hypertension, osteoarthritis, myocardial infarction in 11/2018 with stent placement currently on aspirin and Plavix therapy, and macular degeneration who presented to the hospital due to rectal bleeding. The patient reports initially seeing blood mixed with stool and then subsequently passing bright red blood and clots. Approximately 6 bloody bowel movements reported. She denies any pain but does report some cramping prior to bowel movements. She denies any history of constipation or diarrhea. Currently reports a normal nonbloody bowel movement every other day. She believes she may have had a similar episode 26 years ago at which time she was told it was due to diverticulosis. Remote history of colonoscopy. She has been taking naproxen for a few days after having some shoulder soreness. She denies any history of PUD, reflux, dysphagia or odynophagia. On presentation to the hospital patient had a WBC 9.2, hemoglobin 12.7, platelet count 160,000, INR 1, total bilirubin 0.5, alkaline phosphatase 66, AST 25, and ALT 28. Review of Systems REVIEW OF SYSTEMS: CONSTITUTIONAL: Denies any fevers, chills, weight change or fatigue. CARDIOVASCULAR: Denies any chest pain, palpitations high or low blood pressures RESPIRATORY: Denies any shortness of breath, hemoptysis or cough. GENITOURINARY: No dysuria or hematuria. MUSCULOSKELETAL: patient has been having soreness in her shoulder. SKIN: Denies any new rashes or lesions, jaundice or pallor. PSYCHIATRIC: Denies any depression or anxiety. NEUROLOGY: Denies headache, denies any new focal deficits. EARS/NOSE/THROAT: No recent hearing change, congestion, nasal discharge or sore throat. EYES: No pain in eyes, discharge or change in vision. GASTROINTESTINAL: As per HPI. Past Medical History Past Medical History: Coronary Artery Disease (CAD), Chest Pain / Angina, Deep Vein Thrombosis (DVT), Hyperlipidemia, Hypertension, Myocardial Infarction ([place]), Osteoarthritis (OA) Additional Past Medical History / Comment(s): 01/2017 concussion, neuropathy feet, Hx- R ankle fracture, DVT R leg .,macular degeneration., [place] (2002, 2018)., States left knee pain-cancelled arthroscopy surgery., See Cardiology H&P. Last Myocardial Infarction Date:: NOVEMBER 2018 History of Any Multi-Drug Resistant Organisms: None Reported Past Surgical History: Adenoidectomy, Appendectomy, Heart Catheterization With Stent, Hysterectomy, Orthopedic Surgery, Tonsillectomy Additional Past Surgical History / Comment(s): 2002 Coronary stenting, cataracts with lens implants, colonoscopy, laparoscopic surgery for abdominal adhesions, R knee arthroscopic surgery. Past Anesthesia/Blood Transfusion Reactions: No Reported Reaction Date of Last Stent Placement:: 2002 Past Psychological History: Depression Smoking Status: Former smoker Past Alcohol Use History: Occasional Past Drug Use History: None Reported - Past Family History Father Family Medical History: Cancer, Coronary Artery Disease (CAD) Additional Family Medical History / Comment(s): Pt was estranged from her father. She thinks he had some form of cancer and heart disease-he at the age of 54yrs. Mother Family Medical History: Coronary Artery Disease (CAD), Diabetes Mellitus Additional Family Medical History / Comment(s): Mother at the age of 72 yrs. Medications and Allergies Home Medications Medication Instructions Recorded Confirmed Type Multivitamins, Thera [Multivitamin 1 tab PO DAILY 01/27/17 02/05/19 History (formulary)] Carvedilol [Coreg] 6.25 mg PO BID #60 tablet 11/12/18 02/05/19 Rx Nitroglycerin Sl Tabs [Nitrostat] 0.4 mg SUBLINGUAL Q5M PRN #25 tab 11/12/18 02/05/19 Rx Atorvastatin [Lipitor] 40 mg PO DAILY 11/26/18 02/05/19 History Lisinopril [Zestril] 20 mg PO BID 11/26/18 02/05/19 History Aspirin 81 mg PO BID 02/05/19 02/05/19 History Calcium Carbonate/Vitamin D3 1 tab PO DAILY 02/05/19 02/05/19 History [Calcium 600-Vit D3 200 Tablet] Cholecalciferol [Vitamin D3 (25 1,000 unit PO DAILY 02/05/19 02/05/19 History Mcg = 1000 Iu)] Clopidogrel [Plavix] 75 mg PO DAILY 02/05/19 02/05/19 History Lutein 10 mg PO DAILY 02/05/19 02/05/19 History Ubidecarenone [Co Q-10] 100 mg PO DAILY 02/05/19 02/05/19 History Allergies Allergy/AdvReac Type Severity Reaction Status Date / Time Sulfa (Sulfonamide Allergy Unknown Verified 02/05/19 09:27 Antibiotics) Physical Exam Vitals: Vital Signs Temp Pulse Resp BP Pulse Ox 02/05/19 11:18 62 30 H 200/68 97 02/05/19 11:00 62 30 H 200/68 97 02/05/19 10:30 60 15 190/63 95 02/05/19 10:00 63 24 187/70 95 02/05/19 09:37 62 20 95 02/05/19 09:00 98.3 F 65 16 194/68 98 Intake and Output 02/04/19 02/05/19 02/05/19 22:59 06:59 14:59 Other: Weight 67.132 kg On physical examination, patient appears comfortable in no apparent distress. HEAD: Normocephalic, atraumatic. EYES: No scleral icterus. No conjunctival injection. MOUTH: No lesions, tongue midline. NECK: Trachea midline, no gross abnormalities. CHEST: decreased air entry bilaterally. HEART: S1-S2 appreciated, no murmurs appreciated. ABDOMEN: Soft, obese. Bowel sounds are positive. No organomegaly. No guarding or rigidity. EXTREMITIES: No pedal edema. SKIN: No rashes, no jaundice. NEUROLOGIC: Alert and oriented x3. No focal deficits. Results CBC & Chem 7: 02/05/19 09:35 02/05/19 09:35 Labs: Abnormal Lab Results - Last 24 Hours (Table) 02/05/19 Range/Units 09:35 BUN 24 H (7-17) mg/dL Glucose 111 H (74-99) mg/dL Assessment and Plan (1) Gastrointestinal hemorrhage Narrative/Plan: 83-year-old female with multiple medical comorbidities including myocardial infarction in 11/2018 with stent placement currently on aspirin and Plavix therapy who presented to the hospital with complaints of bright red blood per rectum. Bleeding was generally painless with patient reporting some abdominal cramping and urgency prior to bowel movements. Remote history of colonoscopy which she believes was normal. She reports NSAID use over the past few days but in general does not use any NSAID medications regularly. Hemoglobin was stable on presentation at 12.7. At this time suspicion is for diverticular disease, AVM or perirectal cause of bleeding with differential also including malignancy, colonic ulcer or other etiology. Current Visit: Yes Status: Acute Code(s): K92.2 - GASTROINTESTINAL HEMORRHAG E, UNSPECIFIED SNOMED Code(s): 08986083 (2) Abdominal pain Narrative/Plan: mainly described as cramping prior to bowel movements. Current Visit: Yes Status: Acute Code(s): R10.9 - UNSPECIFIED ABDOMINAL PAIN SNOMED Code(s): 07457772 Plan: Supportive care Continue to monitor hemoglobin and hematocrit and transfuse as needed Continue to hold aspirin and Plavix therapy Okay for liquid diet Continue to monitor for further signs or symptoms of GI bleeding At this time the plan is to monitor symptoms and hemoglobin, and if symptoms continue to improve and hemoglobin remains stable we'll advance diet and restart Plavix therapy, however if symptoms persist or patient has precipitous fall in hemoglobin will plan for endoscopic evaluation, otherwise patient will need follow-up and consideration for outpatient colonoscopy Thank you for allowing us to participate in the care of the patient we will continue to follow
[2019-02-06] MEDS: CALCIUM CARB-VIT D 500MG-200UN 1 EACH TAB PO SCH (07:57)
[2019-02-06] MEDS: MULTIVITAMINS, THERA 1 EACH TAB PO SCH (07:57)
[2019-02-06] MEDS: ATORVASTATIN 40 MG TAB PO SCH (07:57)
[2019-02-06] MEDS: CARVEDILOL 6.25 MG TAB PO SCH ×2 (07:57→22:02)
[2019-02-06] MEDS: PANTOPRAZOLE 40 MG/10 ML VIAL IVP SCH (07:57)
[2019-02-06] MEDS: LISINOPRIL 20 MG TAB PO SCH ×2 (07:58→22:02)
[2019-02-06] MEDS: CHOLECALCIFEROL 1,000 UNIT TAB PO SCH (07:58)
[2019-02-06] MEDS: NON-FORMULARY DRUG (Lutein [Lutein] 10 MG) PO SCH (07:58)
[2019-02-06] MEDS: NON-FORMULARY DRUG (Ubidecarenone [Co Q-10] 100 MG) PO SCH (07:58)
[2019-02-06 10:23] LABS: Basophils % (A) 1 %; Eosinophils # (A) 0.2 k/uL (0-0.7); Eosinophils % (A) 4 %; HCT 38.1 % (34.0-46.0); HGB 12.4 gm/dL (11.4-16.0); Lymphocytes # (A) 1.3 k/uL (1.0-4.8); Lymphocytes % (A) 22 %; MCH 31.2 pg (25.0-35.0); MCHC 32.6 g/dL (31.0-37.0); MCV 95.9 fL (80.0-100.0); Mean Platelet Volume 7.8; Monocytes # (A) 0.3 k/uL (0-1.0); Monocytes % (A) 5 %; Neutrophils # (A) 3.9 k/uL (1.3-7.7); Neutrophils % (A) 66 %; Platelet Count 128 k/uL (150-450); RBC 3.97 m/uL (3.80-5.40); RDW 12.7 % (11.5-15.5); WBC 5.9 k/uL (3.8-10.6)
[2019-02-06 10:30] LABS: Potassium 4.3 mmol/L (3.5-5.1); Total Bilirubin 0.5 mg/dL (0.2-1.3); Total Protein 6.7 g/dL (6.3-8.2)
[2019-02-06] MEDS: ASPIRIN 81 MG PO SCH (11:45)
[2019-02-06] MEDS: HYDROCHLOROTHIAZIDE 25 MG TAB PO SCH (11:45)
[2019-02-06] MEDS: amLODIPine 5 MG TAB PO SCH (11:45)
[2019-02-06] MEDS: CLOPIDOGREL 75 MG TAB PO SCH (11:45)
--- NOTE | 2019-02-06 12:17 | CONS ---
CONSULTATION Mrs. Grimaldo is an 83-year-old female with history of coronary artery disease who presented with evidence of blood in her stool. Her cardiac history is remarkable for the fact that she had presented recently with a non STEMI and had significant disease in the distal and mid right coronary artery, underwent stenting of that vessel. She had a remote stenting of the left circumflex in 2002. Subsequently was readmitted to the hospital recently in beginning of December and underwent stenting of her left anterior descending artery. She has been doing well from the cardiac standpoint without any recurrent symptoms of chest pain. Her breathing has been stable. She denies any dizziness or palpitation. A few days ago, she had significant musculoskeletal discomfort after fixing her vacuum drycleaner and taking a nonsteroidal. On the last few days, she had recurrent episode of bright red blood per stool. Because of that, she came into the emergency room. She had no nausea, no vomiting. No chest discomfort. Her breathing has been stable. She has no dizziness, palpitation. No significant peripheral edema. Her coronary risk factors are remarkable for history of hypertension and hyperlipidemia. She is a nondiabetic, nonsmoker. MEDICATIONS: Include aspirin once a day, Plavix 75 mg daily, Zestril 20 mg twice a day, Coreg 6.5 mg twice a day, Lipitor 40 mg daily. REVIEW OF SYSTEMS: RESPIRATORY system: She has no documented history of asthma, emphysema or bronchitis. GI system: No prior history of GI bleeding until this episode. She has no nausea, no vomiting. system: No dysuria or hematuria. Nervous system: No stroke or seizure. PHYSICAL EXAMINATION: 83-year-old female, alert, oriented, in no apparent distress. Blood pressure running in the 140s to 180s with the heart rate in the 50s to 60s. HEAD: Normocephalic. EYES: Sclerae anicteric. NECK: Good upstroke. No bruit. No jugular venous distention. LUNGS: Clear to auscultation. HEART: Regular rate and rhythm, S1, S2. No S3. No rub or gallop appreciated with a systolic murmur. ABDOMEN: Soft, nontender. Positive bowel sounds. No megaly. EXTREMITIES: No edema. Intact distal pulses. LAB DATA: Lab data revealed a hemoglobin of 12.7 on admission, 12.4 today. Potassium of 4.3. Platelets of 128. BUN and creatinine 16 and 0.77. IMPRESSION: 1. Episode of lower gastrointestinal bleeding could be worsened by the nonsteroidal she took. No evidence of significant bleeding at this time. 2. Status post stenting. 3. History of hypertension. 4. Hyperlipidemia. RECOMMENDATION: From the cardiac standpoint, I will re-initiate treatment with the aspirin and Plavix since her hemoglobin is stable. She had no further bleeding since admission. Her blood pressure is elevated and I will add to her regimen hydrochlorothiazide 25 mg daily, increase her level of activity. If she remains stable I would expect she should be able to be discharged home soon and followed as an outpatient. Thank you for this consult. We will follow with you. JESSY / JOELN: [id number] /
--- NOTE | 2019-02-06 14:44 | P.PN ---
Subjective Progress Note Date: 02/06/19 Zoya Grimaldo is an 83-year-old female who presented to [facility] emergency department with a complaint of rectal bleeding. Patient states it started on the day prior to admission and it continued throughout the day today. Patient states that she has some abdominal cramping as if she needs to have a bowel movement and then passes some bright red blood. Patient denies any rectal pain patient denies any abdominal pain. Patient denies any recent fever chills or cough. Patient stated that she had a myocardial infarction in November 2018 and had 5 stents placed at that time, she is maintained on aspirin and Plavix, which are on hold at this time. Patient denies any recent diarrhea. She denies any previous history of gastrointestinal bleeding, she had a colonoscopy in the past but more than 5 years ago, she denies ever having Crohn's disease or ulcerative colitis, no history of colon cancer. On 02/06/2019 patient was seen and examined on the medical floor she is alert and oriented 3 in no apparent distress, there is no new episodes of rectal bleeding, hemoglobin is stable she was seen today by cardiology and was resumed on her aspirin and Plavix at this time will advance diet gradually will monitor till tomorrow if there is no further bleeding patient may be able to discharged home. On review of system there is no fever or chills no headache or dizziness no chest pain no shortness of breath no cough no nausea or vomiting no abdominal pain no diarrhea and no urinary symptoms. Objective - Vital Signs Vital signs: Vital Signs Temp 97.5 F L 02/06/19 07:22 Pulse 53 L 02/06/19 09:20 Resp 16 02/06/19 07:22 BP 183/71 02/06/19 09:20 Pulse Ox 97 02/06/19 07:22 Intake & Output 02/05/19 02/06/19 02/06/19 18:59 06:59 18:59 Intake Total 240 Balance 240 Weight 67.132 kg Intake: Oral 240 Other: Voiding Method Toilet # Voids 1 1 - Exam In general patient is alert and oriented 3 in no apparent distress HEENT head normocephalic and atraumatic Neck is supple no JVD no goiter no lymphadenopathy Chest exam reveals a scattered crackles bilaterally no wheezing Cardiac exam reveals regular heart sounds S1 and S2 no gallops no murmurs Abdomen is soft nontender no organomegaly with normal bowel sounds Extremity exam reveals no edema no cyanosis or clubbing Neurological examination reveals no gross focal deficit - Labs CBC & Chem 7: 02/06/19 10:01 02/06/19 10:01 Labs: Abnormal Lab Results - Last 24 Hours (Table) 02/06/19 02/06/19 Range/Units 10:01 10:01 Plt Count 128 L (150-450) k/uL Chloride 108 H (98-107) mmol/L Glucose 105 H (74-99) mg/dL Assessment and Plan Plan: #1 rectal bleeding #2 recent myocardial infarction in November 2018 with 5 stent placement maintained on aspirin and Plavix now medication are on hold #3 underlying history of hypertension, resume home medications, add hydralazine when necessary #4 underlying history of osteoarthritis At this time patient is admitted to medical floor without holding aspirin and Plavix Gastroenterology consult requested Serial CBCs are ordered Cardiology consult requested in regard to recent myocardial infarction For DVT prophylaxis SCD stockings For GI prophylaxis IV Protonix
[2019-02-06] MEDS ORDERED: ACETAMINOPHEN TAB 325 MG TAB PO PRN (15:53)
--- NOTE | 2019-02-06 21:44 | P.PN ---
Subjective Progress Note Date: 02/06/19 Principal diagnosis: hematochezia The patient is seen sitting bedside with her daughter in the room. She is reporting no further bowel movements since coming to the hospital and being seen yesterday. No abdominal pain reported. Asking for diet. Objective - Vital Signs Vital signs: Vital Signs Temp 97.5 F L 02/06/19 07:22 Pulse 53 L 02/06/19 09:20 Resp 16 02/06/19 07:22 BP 183/71 02/06/19 09:20 Pulse Ox 97 02/06/19 07:22 Intake & Output 02/05/19 02/06/19 02/06/19 18:59 06:59 18:59 Intake Total 240 Balance 240 Weight 67.132 kg Intake: Oral 240 Other: Voiding Method Toilet # Voids 1 - Exam On physical examination, patient appears comfortable in no apparent distress. HEAD: Normocephalic, atraumatic. EYES: No scleral icterus. No conjunctival injection. MOUTH: No lesions, tongue midline. NECK: Trachea midline, no gross abnormalities. CHEST: decreased air entry bilaterally. HEART: S1-S2 appreciated. ABDOMEN: Soft, obese. Bowel sounds are positive. No organomegaly. No guarding or rigidity. EXTREMITIES: No pedal edema. SKIN: No rashes, no jaundice. NEUROLOGIC: Alert and oriented x3. No focal deficits. - Labs CBC & Chem 7: 02/06/19 10:01 02/06/19 10:01 Labs: Abnormal Lab Results - Last 24 Hours (Table) 02/05/19 Range/Units 09:35 BUN 24 H (7-17) mg/dL Glucose 111 H (74-99) mg/dL Assessment and Plan (1) Gastrointestinal hemorrhage Narrative/Plan: 83-year-old female with multiple medical comorbidities including myocardial infarction in 11/2018 with stent placement currently on aspirin and Plavix therapy who presented to the hospital with complaints of bright red blood per rectum. Bleeding was generally painless with patient reporting some abdominal cramping and urgency prior to bowel movements. Remote history of colonoscopy which she believes was normal. She reports NSAID use over the past few days but in general does not use any NSAID medications regularly. Hemoglobin was stable on presentation at 12.7. At this time suspicion is for diverticular disease, AVM or perirectal cause of bleeding with differential also including malignancy, colonic ulcer or other etiology. Current Visit: Yes Status: Acute Code(s): K92.2 - GASTROINTESTINAL HEMORRHA GE, UNSPECIFIED SNOMED Code(s): 54193690 (2) Abdominal pain Narrative/Plan: mainly described as cramping prior to bowel movements. Current Visit: Yes Status: Acute Code(s): R10.9 - UNSPECIFIED ABDOMINAL PAIN SNOMED Code(s): 87513691 Plan: Supportive care Continue to monitor hemoglobin and hematocrit and transfuse as needed okay to resume antiplatelet therapy Okay for liquid diet, with plan to advance to low fiber low residual diet Continue to monitor for further signs or symptoms of GI bleeding no plans for endoscopy at this time, if patient continues to be stable clinically and labs, plan will be or outpatient follow-up at which time discussion of possible colonoscopy will take place Thank you for allowing us to participate in the care of the patient we will continue to follow
[2019-02-07 07:32] VITALS: RESP 15
[2019-02-07] MEDS: amLODIPine 5 MG TAB PO SCH (08:08)
[2019-02-07] MEDS: CARVEDILOL 6.25 MG TAB PO SCH (08:08)
[2019-02-07] MEDS: PANTOPRAZOLE 40 MG/10 ML VIAL IVP SCH (08:08)
[2019-02-07] MEDS: CHOLECALCIFEROL 1,000 UNIT TAB PO SCH (08:08)
[2019-02-07] MEDS: CLOPIDOGREL 75 MG TAB PO SCH (08:08)
[2019-02-07] MEDS: ASPIRIN 81 MG PO SCH (08:08)
[2019-02-07] MEDS: LISINOPRIL 20 MG TAB PO SCH (08:08)
[2019-02-07] MEDS: HYDROCHLOROTHIAZIDE 25 MG TAB PO SCH (08:08)
[2019-02-07] MEDS: CALCIUM CARB-VIT D 500MG-200UN 1 EACH TAB PO SCH (08:08)
[2019-02-07] MEDS: ATORVASTATIN 40 MG TAB PO SCH (08:08)
[2019-02-07 09:27] LABS: Basophils % (A) 1 %; Eosinophils # (A) 0.2 k/uL (0-0.7); Eosinophils % (A) 3 %; HCT 40.4 % (34.0-46.0); HGB 13.3 gm/dL (11.4-16.0); Lymphocytes # (A) 1.2 k/uL (1.0-4.8); Lymphocytes % (A) 22 %; MCH 31.2 pg (25.0-35.0); MCV 94.4 fL (80.0-100.0); Mean Platelet Volume 7.9; Monocytes # (A) 0.2 k/uL (0-1.0); Monocytes % (A) 4 %; Neutrophils # (A) 3.8 k/uL (1.3-7.7); Neutrophils % (A) 69 %; Platelet Count 164 k/uL (150-450); RBC 4.28 m/uL (3.80-5.40); RDW 13.4 % (11.5-15.5); WBC 5.6 k/uL (3.8-10.6)
[2019-02-07 09:49] LABS: Albumin 4.4 g/dL (3.5-5.0); Calcium 9.5 mg/dL (8.4-10.2); Total Bilirubin 0.4 mg/dL (0.2-1.3); Total Protein 7.3 g/dL (6.3-8.2)
[2019-02-07] MEDS: NON-FORMULARY DRUG (Lutein [Lutein] 10 MG) PO SCH (10:42)
[2019-02-07] MEDS: NON-FORMULARY DRUG (Ubidecarenone [Co Q-10] 100 MG) PO SCH (10:42)
--- NOTE | 2019-02-07 11:25 | P.PN ---
Subjective Progress Note Date: 02/07/19 Principal diagnosis: Abdominal pain and rectal bleeding Denies abdominal pain. Denies rectal bleeding. Requesting discharge. Hemoglobin 13.3 stable. Objective - Vital Signs Vital signs: Vital Signs Temp 97.4 F L 02/07/19 07:00 Pulse 54 L 02/07/19 07:00 Resp 15 02/07/19 07:00 BP 197/79 02/07/19 07:00 Pulse Ox 97 02/07/19 07:00 Intake & Output 02/06/19 02/07/19 02/07/19 18:59 06:59 18:59 Intake Total 1080 160 Balance 1080 160 Intake: Oral 1080 160 Other: Voiding Method Toilet # Voids 2 1 - Exam General appearance: The patient is alert, oriented, in no acute distress. HET: Head is normocephalic and atraumatic. Pupils are equal and reactive. Oropharynx is clear without lesions. Neck: Supple without lymphadenopathy. Trachea midline. Heart: S1 S2. Regular rate and rhythm. Lungs: No crackles or wheezes are heard. Abdomen: Soft, nontender, nondistended with bowel sounds. No peritoneal signs. No palpable organomegaly or masses. Extremities: Normal skin color and turgor. No cyanosis, rash, ulceration, clubbing, or edema. Radial and pedal pulses are 2/4 bilaterally. Neurological: No focal deficits. Strength and sensation are grossly intact. - Labs CBC & Chem 7: 02/07/19 08:48 02/07/19 08:48 Labs: Abnormal Lab Results - Last 24 Hours (Table) 02/07/19 Range/Units 08:48 Glucose 163 H (74-99) mg/dL Assessment and Plan (1) Abdominal pain Current Visit: Yes Status: Acute Code(s): R10.9 - UNSPECIFIED ABDOMINAL PAIN SNOMED Code(s): 26870973 (2) Gastrointestinal hemorrhage Narrative/Plan: 83-year-old female with multiple medical comorbidities including myocardial infarction in 11/2018 with stent placement currently on aspirin and Plavix therapy who presented to the hospital with complaints of bright red blood per rectum. Bleeding was generally painless with patient reporting some abdominal cramping and urgency prior to bowel movements. Remote history of colonoscopy which she believes was normal. She reports NSAID use over the past few days but in general does not use any NSAID medications regularly. At this time suspicion is for diverticular disease, AVM or perirectal cause of bleeding with differen tial also including malignancy, colonic ulcer or other etiology. Current Visit: Yes Status: Acute Code(s): K92.2 - GASTROINTESTINAL HEMORRHAGE, UNSPECIFIED SNOMED Code(s): 74997200 Plan: 1. Agreeable for discharge. Follow-up in office with Dr. Crow for reeva lugeneva discussion of outpatient colonoscopy at this time patient is declining colonoscopy. Resume home medications. Assessment and plan a care discussed with Dr. Steiner
[2019-02-07] MEDS: MULTIVITAMINS, THERA 1 EACH TAB PO SCH (11:50)
--- NOTE | 2019-02-07 14:24 | P.DS ---
Providers Date of admission: 02/05/19 10:42 Expected date of discharge: 02/07/19 Attending physician: Bin Mcconnell Consults: 02/05/19 16:33 Consult Physician Routine Consulting Provider: Rosendo Morris Consult Reason/Comments: recent [place], GI bleed Do you want consulting provider notified?: Yes Primary care physician: Maeve Watkins Hospital Course: Discharge diagnosis #1 acute lower GI bleeding with rectal bleeding: Patient seen by GI service. Patient had been using NSAIDs. Per GI there is suspicion for diverticular disease, AVM or perirectal cause of bleeding with differential including malignancy, colonic ulcer or other etiology. Hemoglobin has been stable. Hemoglobin at discharge is 13.3. Patient is no longer having any rectal bleeding. Patient declined colonoscopy inpatient. She'll be following up with Dr. Culver outpatient for possible outpatient colonoscopy. #2 recent myocardial infarction in November 2018 with 5 stent placement maintained on aspirin and Plavix. Since patient is no other having any bleeding aspirin and Plavix were restarted. Patient seen by cardiology during this admission #3 essential hypertension with uncontrolled blood pressures. Norvasc and hydrochlorothiazide added during this admission. Blood pressures are showing improvement. She did have a blood pressure of 197/79 this morning after medications pound to 164/67 #4 underlying history of osteoarthritis Hospital course Zoya Grimaldo is an 83-year-old female who presented to [facility] emergency department with a complaint of rectal bleeding. Patient states it started on the day prior to admission and it continued throughout the day today. Patient states that she has some abdominal cramping as if she needs to have a bowel movement and then passes some bright red blood. Patient denies any rectal pain patient denies any abdominal pain. Patient denies any recent fever chills or cough. Patient stated that she had a myocardial infarction in November 2018 and had 5 stents placed at that time, she is maintained on aspirin and Plavix, which are on hold at this time. Patient denies any recent diarrhea. She denies any previous history of gastrointestinal bleeding, she had a colonoscopy in the past but more than 5 years ago, she denies ever having Crohn's disease or ulcerative colitis, no history of colon cancer. On 02/06/2019 patient was seen and examined on the medical floor she is alert and oriented 3 in no apparent distress, there is no new episodes of rectal bleeding, hemoglobin is stable she was seen today by cardiology and was resumed on her aspirin and Plavix at this time will advance diet gradually will monitor till tomorrow if there is no further bleeding patient may be able to discharged home. On review of system there is no fever or chills no headache or dizziness no chest pain no shortness of breath no cough no nausea or vomiting no abdominal pain no diarrhea and no urinary symptoms. 02/07/2019 patient is medically stable for discharge. She's been cleared by GI and cardiology services. She is no longer having any rectal bleeding. Hemoglobin is stable. She'll follow up with GI service outpatient further discussion about outpatient colonoscopy. During this admission blood pressure medications were added for better blood pressure control. Patient has been educated to follow a low-salt diet and to check blood pressures at home daily and record. She'll follow-up with her PCP within the next 2-3 days for BP check. And she'll also follow up with cardiology and GI service outpatient. Patient is medically stable for discharge please refer to chart for any further details. I performed an examination of the patient and discussed their management with the physician Tomb Maker Helper. I have reviewed the Physician Tomb Maker Helper's notes and agree with the documented findings and plan of care Patient Condition at Discharge: Stable Plan - Discharge Summary Discharge Rx Participant: No New Discharge Prescriptions: New Hydrochlorothiazide [Hydrodiuril] 25 mg PO DAILY #30 tab amLODIPine [Norvasc] 5 mg PO DAILY #30 tab Continue Multivitamins, Thera [Multivitamin (formulary)] 1 tab PO DAILY Nitroglycerin Sl Tabs [Nitrostat] 0.4 mg SUBLINGUAL Q5M PRN #25 tab PRN Reason: Chest Pain Carvedilol [Coreg] 6.25 mg PO BID #60 tablet Lisinopril [Zestril] 20 mg PO BID Atorvastatin [Lipitor] 40 mg PO DAILY Clopidogrel [Plavix] 75 mg PO DAILY Calcium Carbonate/Vitamin D3 [Calcium 600-Vit D3 200 Tablet] 1 tab PO DAILY Lutein 10 mg PO DAILY Cholecalciferol [Vitamin D3 (25 Mcg = 1000 Iu)] 1,000 unit PO DAILY Ubidecarenone [Co Q-10] 100 mg PO DAILY Aspirin 81 mg PO BID Discharge Medication List Multivitamins, Thera [Multivitamin (formulary)] 1 tab PO DAILY 01/27/17 [History] Carvedilol [Coreg] 6.25 mg PO BID #60 tablet 11/12/18 [Rx] Nitroglycerin Sl Tabs [Nitrostat] 0.4 mg SUBLINGUAL Q5M PRN #25 tab 11/12/18 [Rx] Atorvastatin [Lipitor] 40 mg PO DAILY 11/26/18 [History] Lisinopril [Zestril] 20 mg PO BID 11/26/18 [History] Aspirin 81 mg PO BID 02/05/19 [History] Calcium Carbonate/Vitamin D3 [Calcium 600-Vit D3 200 Tablet] 1 tab PO DAILY 02/05/19 [History] Cholecalciferol [Vitamin D3 (25 Mcg = 1000 Iu)] 1,000 unit PO DAILY 02/05/19 [History] Clopidogrel [Plavix] 75 mg PO DAILY 02/05/19 [History] Lutein 10 mg PO DAILY 02/05/19 [History] Ubidecarenone [Co Q-10] 100 mg PO DAILY 02/05/19 [History] Hydrochlorothiazide [Hydrodiuril] 25 mg PO DAILY #30 tab 02/07/19 [Rx] amLODIPine [Norvasc] 5 mg PO DAILY #30 tab 02/07/19 [Rx] Follow up Appointment(s)/Referral(s): Maeve Watkins MD [Primary Care Provider] - 3 Days Sotero Culver MD [STAFF PHYSICIAN] - 03/28/19 3:15 pm Rosendo Morris MD [STAFF PHYSICIAN] - 1 Week Activity/Diet/Wound Care/Special Instructions: Diet: cardiac Activity: as tolerated Check blood pressure daily at home and record Discharge Disposition: HOME SELF-CARE
[2019-02-07 14:36] VITALS: TEMP 97.5
[2019-02-07 15:13] VITALS: BP 156/68; PULSE 66
== END 2019-02-07 16:34 | disposition home or self-care (01) ==
LOC: EC 08:55 → 4SSUR 10:42
PROVIDERS: ADMIT Internal Medicine; ATTEND Internal Medicine
DX: K62.5 Hemorrhage of anus and rectum (principal); I25.10 Atherosclerotic heart disease of native coronary artery without angina pectoris; I10 Essential (primary) hypertension; M19.90 Unspecified osteoarthritis, unspecified site; H35.30 Unspecified macular degeneration; G62.9 Polyneuropathy, unspecified; E78.5 Hyperlipidemia, unspecified; M25.562 Pain in left knee; F32.9 Major depressive disorder, single episode, unspecified; E66.9 Obesity, unspecified; Z68.27 Body mass index [BMI] 27.0-27.9, adult; Z87.891 Personal history of nicotine dependence; Z86.718 Personal history of other venous thrombosis and embolism; Z79.82 Long term (current) use of aspirin; Z79.899 Other long term (current) drug therapy; Z79.02 Long term (current) use of antithrombotics/antiplatelets; Z88.2 Allergy status to sulfonamides; I25.2 Old myocardial infarction; Z95.5 Presence of coronary angioplasty implant and graft; Z90.710 Acquired absence of both cervix and uterus; Z98.42 Cataract extraction status, left eye; Z98.41 Cataract extraction status, right eye; Z96.1 Presence of intraocular lens; Z82.49 Family history of ischemic heart disease and other diseases of the circulatory system; Z83.3 Family history of diabetes mellitus
CPT/HCPCS: 96376 ×2; 96361 ×3; 96375 ×2; 96374; 99285; 36415; 86900; 86901; 80053 ×3; 83735; 84484; 85025 ×3; 85610; 85730; 86850; G0378 ×3; J0360; C9113 ×3

== ENCOUNTER 2020-02-24 11:49 | Emergency (ER) | payer MEDICARE, OTHER ==
[2020-02-24 12:35] VITALS: TEMP 98.3
[2020-02-24] MEDS ORDERED: MORPHINE SULFATE 4 MG/ML SYRINGE IVP STA (13:22)
[2020-02-24] MEDS ORDERED: carBAMazepine 200 MG TAB PO STA (13:25)
[2020-02-24 13:36] LABS: Basophils # (A) 0.1 k/uL (0-0.2); Basophils % (A) 1 %; Eosinophils # (A) 0.2 k/uL (0-0.7); Eosinophils % (A) 3 %; HCT 41.6 % (34.0-46.0); HGB 14.5 gm/dL (11.4-16.0); Lymphocytes # (A) 1.9 k/uL (1.0-4.8); Lymphocytes % (A) 28 %; MCH 33.2 pg (25.0-35.0); MCHC 34.9 g/dL (31.0-37.0); MCV 95.1 fL (80.0-100.0); Mean Platelet Volume 7.4; Monocytes # (A) 0.4 k/uL (0-1.0); Monocytes % (A) 7 %; Neutrophils # (A) 3.9 k/uL (1.3-7.7); Neutrophils % (A) 59 %; Platelet Count 182 k/uL (150-450); RBC 4.37 m/uL (3.80-5.40); RDW 12.5 % (11.5-15.5); WBC 6.7 k/uL (3.8-10.6)
[2020-02-24 13:53] LABS: ALT 32 U/L (4-34); AST 37 U/L (14-36); African American GFR (CKD) 80 (>60 ml/min/1.73 sqM); Albumin 4.8 g/dL (3.5-5.0); Alkaline Phosphatase 74 U/L (38-126); Anion Gap 13 mmol/L; Blood Urea Nitrogen 24 mg/dL (7-17); C Reactive Protein <5.0 mg/L (<10.0); Calcium 10.1 mg/dL (8.4-10.2); Carbon Dioxide 20 mmol/L (22-30); Chloride 104 mmol/L (98-107); Glucose 105 mg/dL (74-99); Non-African American GFR(CKD) 70 (>60 ml/min/1.73 sqM); Potassium 4.7 mmol/L (3.5-5.1); Sodium 137 mmol/L (137-145); Total Bilirubin 0.4 mg/dL (0.2-1.3); Total Protein 8.2 g/dL (6.3-8.2)
--- NOTE | 2020-02-24 14:11 | CT ---
EXAMINATION TYPE: CT brain wo con DATE OF EXAM: 02/24/2020 COMPARISON: 01/27/2017 HISTORY: right side headache CT DLP: 952.6 mGycm Automated exposure control for dose reduction was used. FINDINGS: Mild generalized degenerative change. Faint low-attenuation the white matter is nonspecific but most typical remote microvascular ischemia. No acute hemorrhage. No mass effect or midline shift. Calvariu m intact. IMPRESSION: 1. Mild degenerative change. Faint periventricular low attenuation is nonspecific but most typical re mote ischemic white matter change. 2. No acute hemorrhage or mass effect.
--- NOTE | 2020-02-24 14:11 | ED ---
General Adult HPI - General Chief complaint: Headache Stated complaint: pain in head Time Seen by Provider: 02/24/20 12:35 Source: patient Mode of arrival: ambulatory Limitations: no limitations - History of Present Illness Initial comments: Patient is an 84-year-old female past history of chest pain, coronary disease, DVT, hypertension, hyperlipidemia who presents to the emergency department with reported right-sided facial pain. The patient reports that the symptoms started in the middle the night. It woke her up at 1:00 as he was so intense. She describes it as a shocking sensation which radiates from her right ear up to her head and to the middle of her cheek. States that it comes in waves. She attempted to take some Tylenol however it did not really improve her symptoms. She did see Dr. Watkins office today. They were concerned for temporal arteritis and therefore sent her to the emergency room for evaluation. The patient denies any headaches or visual changes. No fevers or chills. No neck pain or stiffness. Patient does have provocation of her symptoms with light touch. Denies any hearing changes or jaw pain. No history of similar in the past. No other alleviating, precipitating or modifying factors - Related Data Home Medications Medication Instructions Recorded Confirmed Multivitamins, Thera [Multivitamin 1 tab PO DAILY 01/27/17 02/24/20 (formulary)] Aspirin 81 mg PO DAILY 02/05/19 02/24/20 Cholecalciferol [Vitamin D3 (25 1,000 unit PO DAILY 02/05/19 02/24/20 Mcg = 1000 Iu)] Clopidogrel [Plavix] 75 mg PO DAILY 02/05/19 02/24/20 Ubidecarenone [Co Q-10] 100 mg PO DAILY 02/05/19 02/24/20 Chlorthalidone 25 mg PO DAILY 02/24/20 02/24/20 Ezetimibe [Zetia] 10 mg PO DAILY 02/24/20 02/24/20 Metoprolol Tartrate [Lopressor] 25 mg PO BID 02/24/20 02/24/20 lisinopriL 20 mg PO BID 02/24/20 02/24/20 Previous Rx's Medication Instructions Recorded Nitroglycerin Sl Tabs [Nitrostat] 0.4 mg SUBLINGUAL Q5M PRN #25 tab 11/12/18 hydroCHLOROthiazide [Hydrodiuril] 25 mg PO DAILY #30 tab 02/07/19 carBAMazepine [Carbatrol] 100 mg PO Q12HR #14 cap 02/24/20 Allergies Allergy/AdvReac Type Severity Reaction Status Date / Time Sulfa (Sulfonamide Allergy Unknown Verified 02/24/20 13:43 Antibiotics) Childhood Review of Systems ROS Statement: Those systems with pertinent positive or pertinent negative responses have been documented in the HPI. ROS Other: All systems not noted in ROS Statement are negative. Past Medical History Past Medical History: Coronary Artery Disease (CAD), Chest Pain / Angina, Deep Vein Thrombosis (DVT), Hyperlipidemia, Hypertension, Myocardial Infarction (ID), Osteoarthritis (OA) Additional Past Medical History / Comment(s): 01/2017 concussion, neuropathy feet, Hx- R ankle fracture, DVT R leg .,macular degeneration., ID (2002, 2018)., States left knee pain-cancelled arthroscopy surgery., See Cardiology H&P. Last Myocardial Infarction Date:: NOVEMBER 2018 History of Any Multi-Drug Resistant Organisms: None Reported Past Surgical History: Adenoidectomy, Appendectomy, Heart Catheterization With Stent, Hysterectomy, Orthopedic Surgery, Tonsillectomy Additional Past Surgical History / Comment(s): 2002 Coronary stenting, cataracts with lens implants, colonoscopy, laparoscopic surgery for abdominal adhesions, R knee arthroscopic surgery. Past Anesthesia/Blood Transfusion Reactions: No Reported Reaction Date of Last Stent Placement:: 2002 Past Psychological History: Depression Smoking Status: Never smoker Past Alcohol Use History: Occasional Past Drug Use History: None Reported - Past Family History Father Family Medical History: Cancer, Coronary Artery Disease (CAD) Additional Family Medical History / Comment(s): Pt was estranged from her father. She thinks he had some form of cancer and heart disease-he at the age of 54yrs. Mother Family Medical History: Coronary Artery Disease (CAD), Diabetes Mellitus Additional Family Medical History / Comment(s): Mother at the age of 72 yrs. General Exam Limitations: no limitations General appearance: alert, in no apparent distress, anxious Head exam: Present: atraumatic, normocephalic, other (tenderness to palpation in trigeminal distribution. No facial droop. No pain with palpation of the temporal region. no TMJ tenderness. ) Eye exam: Present: normal appearance, PERRL, EOMI. Absent: scleral icterus, conjunctival injection, periorbital swelling ENT exam: Present: normal exam, mucous membranes moist Neck exam: Present: normal inspection. Absent: tenderness, meningismus, lymphadenopathy Respiratory exam: Present: normal lung sounds bilaterally. Absent: respiratory distress, wheezes, rales, rhonchi, stridor Cardiovascular Exam: Present: regular rate, normal rhythm, normal heart sounds. Absent: systolic murmur, diastolic murmur, rubs, gallop, clicks GI/Abdominal exam: Present: soft, normal bowel sounds. Absent: distended, tenderness, guarding, rebound, rigid Extremities exam: Present: normal inspection, full ROM, normal capillary refill. Absent: tenderness, pedal edema, joint swelling, calf tenderness Back exam: Present: normal inspection Neurological exam: Present: alert, oriented X3, CN II-XII intact Psychiatric exam: Present: normal affect, normal mood Skin exam: Present: warm, dry, intact, normal color. Absent: rash Course Vital Signs 02/24/20 02/24/20 02/24/20 12:32 12:35 13:28 Temperature 98.3 F Pulse Rate 57 L Respiratory 18 18 Rate Blood Pressure 193/63 197/69 O2 Sat by Pulse 97 Oximetry 02/24/20 02/24/20 02/24/20 13:30 13:35 13:40 Temperature Pulse Rate 60 61 Respiratory 16 18 Rate Blood Pressure 197/69 182/62 196/66 O2 Sat by Pulse 96 Oximetry 02/24/20 02/24/20 02/24/20 13:50 14:00 14:35 Temperature Pulse Rate 58 L 60 54 L Respiratory 18 16 16 Rate Blood Pressure 196/66 199/68 200/75 O2 Sat by Pulse 96 98 Oximetry 02/24/20 15:02 Temperature Pulse Rate 55 L Respiratory 18 Rate Blood Pressure 188/69 O2 Sat by Pulse 98 Oximetry Medical Decision Making - Medical Decision Making Patient evaluated. Clinical exam concerning for trigeminal neuralgia. Did complete lab studies due to PCP concern for temporal arteritis for which patient denies headache, temporal pain, vision changes. CT completed due to advanced age with new onset temporal arteritis. Pt given 4 mg morphine and has good resolution of symptoms. Patient will be discharged home on carbemazepine. I discussed case with Dr. Watkins who will need pt next week and titrate medication as needed. Patient understood this. Asked to return for any new or worsening symptoms. - Lab Data Result diagrams: 02/24/20 13:23 02/24/20 13:23 Lab Results 02/24/20 02/24/20 Range/Units 13:23 13:23 WBC 6.7 (3.8-10.6) k/uL RBC 4.37 (3.80-5.40) m/uL Hgb 14.5 (11.4-16.0) gm/dL Hct 41.6 (34.0-46.0) % MCV 95.1 (80.0-100.0) fL MCH 33.2 (25.0-35.0) pg MCHC 34.9 (31.0-37.0) g/dL RDW 12.5 (11.5-15.5) % Plt Count 182 (150-450) k/uL Neutrophils % 59 % Lymphocytes % 28 % Monocytes % 7 % Eosinophils % 3 % Basophils % 1 % Neutrophils # 3.9 (1.3-7.7) k/uL Lymphocytes # 1.9 (1.0-4.8) k/uL Monocytes # 0.4 (0-1.0) k/uL Eosinophils # 0.2 (0-0.7) k/uL Basophils # 0.1 (0-0.2) k/uL ESR 25 H (0-20) mm/hr Sodium 137 (137-145) mmol/L Potassium 4.7 (3.5-5.1) mmol/L Chloride 104 (98-107) mmol/L Carbon Dioxide 20 L (22-30) mmol/L Anion Gap 13 mmol/L BUN 24 H (7-17) mg/dL Creatinine 0.79 (0.52-1.04) mg/dL Est GFR (CKD-EPI)AfAm 80 (>60 ml/min/1.73 sqM) Est GFR (CKD-EPI)NonAf 70 (>60 ml/min/1.73 sqM) Glucose 105 H (74-99) mg/dL Calcium 10.1 (8.4-10.2) mg/dL Total Bilirubin 0.4 (0.2-1.3) mg/dL AST 37 H (14-36) U/L ALT 32 (4-34) U/L Alkaline Phosphatase 74 (38-126) U/L C-Reactive Protein <5.0 (<10.0) mg/L Total Protein 8.2 (6.3-8.2) g/dL Albumin 4.8 (3.5-5.0) g/dL Disposition Clinical Impression: Trigeminal neuralgia Disposition: HOME SELF-CARE Condition: Stable Instructions (If sedation given, give patient instructions): Trigeminal Neuralgia (ED) Additional Instructions: Please follow-up with Dr. watkins next week. She may need to increase your med ications. Return to the emergency department for any new or worsening symptoms Prescriptions: carBAMazepine [Carbatrol] 100 mg PO Q12HR #14 cap Is patient prescribed a controlled substance at d/c from ED?: No Referrals: Maeve Watkins MD [Primary Care Provider] - 1-2 days Time of Disposition: 14:50
[2020-02-24 14:17] LABS: Erythrocyte Sedimentation Rate 25 mm/hr (0-20)
[2020-02-24 15:03] VITALS: BP 188/69; PULSE 55; RESP 18
== END 2020-02-24 15:06 | disposition home or self-care (01) ==
LOC: EC 11:49
DX: G50.0 Trigeminal neuralgia (principal); M31.6 Other giant cell arteritis; I25.10 Atherosclerotic heart disease of native coronary artery without angina pectoris; E78.5 Hyperlipidemia, unspecified; I10 Essential (primary) hypertension; I25.2 Old myocardial infarction; I82.401 Acute embolism and thrombosis of unspecified deep veins of right lower extremity; Z95.5 Presence of coronary angioplasty implant and graft; Z79.82 Long term (current) use of aspirin; Z79.02 Long term (current) use of antithrombotics/antiplatelets; Z79.899 Other long term (current) drug therapy; Z88.2 Allergy status to sulfonamides
CPT/HCPCS: 36415; 80053; 85652; 85025; 86140; 70450; 99284; 96374; J2270

== ENCOUNTER → 2021-07-26 | Outpatient (CLI) | payer MEDICARE, OTHER ==
--- NOTE | 2021-07-26 09:55 | US ---
EXAMINATION TYPE: US duplex aorta DATE OF EXAM: 07/26/2021 COMPARISON: CT Chest 2017 CLINICAL HISTORY: I71.4 AAA. Medicare screening EXAM MEASUREMENTS: Abdominal Aorta: Proximal: 1.7 x 1.9 cm Mid: 1.7 x 2.4 cm Distal: 2.4 x 2.7 cm Bifurcation: rt, 1.2 x 1.3 cm lt, 1.1 x 1.3 cm Aortic successfully visualized through the bifurcation. 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 No greater than 3.0 cm AAA.
== END | disposition home or self-care (01) ==
LOC: RADUSWWP 09:23
PROVIDERS: ATTEND Family Medicine
DX: I77.811 Abdominal aortic ectasia (principal)
CPT/HCPCS: 93979

== ENCOUNTER 2022-03-03 11:19 | Emergency (ER) | payer MEDICARE, OTHER ==
[2022-03-03 11:31] VITALS: RESP 18; TEMP 98.4
--- NOTE | 2022-03-03 12:09 | ED ---
URI HPI - General Chief Complaint: Upper Respiratory Infection Stated Complaint: COVID test Time Seen by Provider: 03/03/22 11:31 Source: patient, RN notes reviewed Mode of arrival: ambulatory Limitations: no limitations - History of Present Illness Initial Comments: This a 86-year-old female presents emergency department for possible COVID-19. Patient states she's had a pressure symptoms for last 4-5 days. Patient states this is a congestion, sore throat, no productive cough no shortness breath no chest pain. She states she does have some body aches. Patient states she's had multiple sick contacts with COVID-19. - Related Data Home Medications Medication Instructions Recorded Confirmed Multivitamins, Thera [Multivitamin 1 tab PO DAILY 01/27/17 02/24/20 (formulary)] Aspirin 81 mg PO DAILY 02/05/19 02/24/20 Cholecalciferol [Vitamin D3 (25 1,000 unit PO DAILY 02/05/19 02/24/20 Mcg = 1000 Iu)] Clopidogrel [Plavix] 75 mg PO DAILY 02/05/19 02/24/20 Ubidecarenone [Co Q-10] 100 mg PO DAILY 02/05/19 02/24/20 Chlorthalidone 25 mg PO DAILY 02/24/20 02/24/20 Ezetimibe [Zetia] 10 mg PO DAILY 02/24/20 02/24/20 Metoprolol Tartrate [Lopressor] 25 mg PO BID 02/24/20 02/24/20 lisinopriL 20 mg PO BID 02/24/20 02/24/20 Previous Rx's Medication Instructions Recorded Nitroglycerin Sl Tabs [Nitrostat] 0.4 mg SUBLINGUAL Q5M PRN #25 tab 11/12/18 hydroCHLOROthiazide [Hydrodiuril] 25 mg PO DAILY #30 tab 02/07/19 carBAMazepine [Carbatrol] 100 mg PO Q12HR #14 cap 02/24/20 Allergies Allergy/AdvReac Type Severity Reaction Status Date / Time Sulfa (Sulfonamide Allergy Unknown Verified 03/03/22 11:30 Antibiotics) Childhood Review of Systems ROS Statement: Those systems with pertinent positive or pertinent negative responses have been documented in the HPI. ROS Other: All systems not noted in ROS Statement are negative. Past Medical History Past Medical History: Coronary Artery Disease (CAD), Chest Pain / Angina, Deep Vein Thrombosis (DVT), Hyperlipidemia, Hypertension, Myocardial Infarction (AL), Osteoarthritis (OA) Additional Past Medical History / Comment(s): 01/2017 concussion, neuropathy feet, Hx- R ankle fracture, DVT R leg .,macular degeneration., [place] (2002, 2018)., States left knee pain-cancelled arthroscopy surgery., See Cardiology H&P. Last Myocardial Infarction Date:: NOVEMBER 2018 History of Any Multi-Drug Resistant Organisms: None Reported Past Surgical History: Adenoidectomy, Appendectomy, Heart Catheterization With Stent, Hysterectomy, Orthopedic Surgery, Tonsillectomy Additional Past Surgical History / Comment(s): 2002 Coronary stenting, cataracts with lens implants, colonoscopy, laparoscopic surgery for abdominal adhesions, R knee arthroscopic surgery. Past Anesthesia/Blood Transfusion Reactions: No Reported Reaction Date of Last Stent Placement:: 2002 Past Psychological History: Depression Smoking Status: Never smoker Past Alcohol Use History: Occasional Past Drug Use History: None Reported - Past Family History Father Family Medical History: Cancer, Coronary Artery Disease (CAD) Additional Family Medical History / Comment(s): Pt was estranged from her father. She thinks he had some form of cancer and heart disease-he at the age of 54yrs. Mother Family Medical History: Coronary Artery Disease (CAD), Diabetes Mellitus Additional Family Medical History / Comment(s): Mother at the age of 72 yrs. General Exam Limitations: no limitations General appearance: alert, in no apparent distress Head exam: Present: atraumatic, normocephalic, normal inspection Eye exam: Present: normal appearance, PERRL, EOMI. Absent: scleral icterus, conjunctival injection, periorbital swelling ENT exam: Present: normal exam, normal oropharynx, mucous membranes moist Neck exam: Present: normal inspection, full ROM. Absent: tenderness, meningismus, lymphadenopathy Respiratory exam: Present: normal lung sounds bilaterally. Absent: respiratory distress, wheezes, rales, rhonchi, stridor Cardiovascular Exam: Present: regular rate, normal rhythm, normal heart sounds. Absent: systolic murmur, diastolic murmur, rubs, gallop, clicks Course Vital Signs 03/03/22 11:27 Temperature 98.4 F Pulse Rate 52 L Respiratory 18 Rate Blood Pressure 151/62 O2 Sat by Pulse 96 Oximetry Medical Decision Making - Medical Decision Making 86 year old female presented for cough and cold like symptoms. Patient's COVID- 19 positive. Patient has no hypoxia. Patient will receive monoclonal antibodies will be discharged in stable condition return parameters were discussed. - Lab Data Lab Results 03/03/22 Range/Units 11:46 Coronavirus (PCR) Detected A (Not Detectd) Disposition Clinical Impression: COVID-19 Disposition: HOME SELF-CARE Condition: Stable Instructions (If sedation given, give patient instructions): COVID-19 (Coronavirus Disease 2019) (ED) Additional Instructions: Please return to the Emergency Department if symptoms worsen or any other concerns. Is patient prescribed a controlled substance at d/c from ED?: No Referrals: Maeve Watkins MD [Primary Care Provider] - 1-2 days Time of Disposition: 12:27
[2022-03-03] MEDS ORDERED: BEBTELOVIMAB (EUA) 175 MG/2 ML VIAL IV ONE (12:45)
[2022-03-03 13:49] VITALS: BP 190/58; PULSE 56
== END 2022-03-03 13:49 | disposition home or self-care (01) ==
LOC: EC 11:19
DX: U07.1 COVID-19 (principal); I25.10 Atherosclerotic heart disease of native coronary artery without angina pectoris; E78.5 Hyperlipidemia, unspecified; I10 Essential (primary) hypertension; I25.2 Old myocardial infarction; Z86.718 Personal history of other venous thrombosis and embolism; Z79.82 Long term (current) use of aspirin; Z79.02 Long term (current) use of antithrombotics/antiplatelets; Z79.899 Other long term (current) drug therapy; Z88.2 Allergy status to sulfonamides
CPT/HCPCS: 99283 ×2; 87635; M0222; Q0222

== ENCOUNTER 2022-05-10 13:51 | Emergency (ER) | payer MEDICARE, OTHER ==
[2022-05-10 14:01] VITALS: RESP 16; TEMP 97.7
--- NOTE | 2022-05-10 14:28 | ED ---
Lower Extremity Injury HPI - General Chief Complaint: Extremity Injury, Lower Stated Complaint: right foot pain Time Seen by Provider: 05/10/22 14:02 Source: patient Mode of arrival: wheelchair Limitations: no limitations - History of Present Illness Initial Comments: Patient is an 86-year-old female presents to the emergency room with complaints of increased difficulty in walking due to pain in her right ankle and right foot. She reports swelling and tenderness to her right ankle with swelling beginning to go upwards into her right lower leg. She denies any known trauma or rolling of her ankle however she does note neuropathy and states it is a possibility. She also has a past medical history of a right ankle fracture and a right lower extremity DVT many years ago. In addition to her extremity injury and DVT she has a past medical history significant for CAD with NM, hypertension, hyperlipidemia, arthritis and gout. She does note that she had a similar type of episode and gout in her other leg and was treated with steroids and responded well. She denies any chest pain, shortness of breath, abdominal pain, nausea, vomiting, fevers or chills. - Related Data Home Medications Medication Instructions Recorded Confirmed Multivitamins, Thera [Multivitamin 1 tab PO DAILY 01/27/17 02/24/20 (formulary)] Aspirin 81 mg PO DAILY 02/05/19 02/24/20 Cholecalciferol [Vitamin D3 (25 1,000 unit PO DAILY 02/05/19 02/24/20 Mcg = 1000 Iu)] Clopidogrel [Plavix] 75 mg PO DAILY 02/05/19 02/24/20 Ubidecarenone [Co Q-10] 100 mg PO DAILY 02/05/19 02/24/20 Chlorthalidone 25 mg PO DAILY 02/24/20 02/24/20 Ezetimibe [Zetia] 10 mg PO DAILY 02/24/20 02/24/20 Metoprolol Tartrate [Lopressor] 25 mg PO BID 02/24/20 02/24/20 lisinopriL 20 mg PO BID 02/24/20 02/24/20 Previous Rx's Medication Instructions Recorded Nitroglycerin Sl Tabs [Nitrostat] 0.4 mg SUBLINGUAL Q5M PRN #25 tab 11/12/18 hydroCHLOROthiazide [Hydrodiuril] 25 mg PO DAILY #30 tab 02/07/19 carBAMazepine [Carbatrol] 100 mg PO Q12HR #14 cap 02/24/20 Famotidine [Pepcid] 20 mg PO DIRECTED 30 Days #30 05/10/22 tablet predniSONE [Deltasone] 20 mg PO DIRECTED #16 tab 05/10/22 Allergies Allergy/AdvReac Type Severity Reaction Status Date / Time Sulfa (Sulfonamide Allergy Unknown Verified 05/10/22 13:55 Antibiotics) Childhood Review of Systems ROS Statement: Those systems with pertinent positive or pertinent negative responses have been documented in the HPI. ROS Other: All systems not noted in ROS Statement are negative. Past Medical History Past Medical History: Coronary Artery Disease (CAD), Chest Pain / Angina, Deep Vein Thrombosis (DVT), Hyperlipidemia, Hypertension, Myocardial Infarction (NM), Osteoarthritis (OA) Additional Past Medical History / Comment(s): Concussion, neuropathy feet, Hx- R ankle fracture, DVT R leg, macular degeneration, NM (2002, 2018) Last Myocardial Infarction Date:: NOVEMBER 2018 History of Any Multi-Drug Resistant Organisms: None Reported Past Surgical History: Adenoidectomy, Appendectomy, Heart Catheterization With Stent, Hysterectomy, Orthopedic Surgery, Tonsillectomy Additional Past Surgical History / Comment(s): 2002 Coronary stenting, cataracts with lens implants, colonoscopy, laparoscopic surgery for abdominal adhesions, R knee arthroscopic surgery. Past Anesthesia/Blood Transfusion Reactions: No Reported Reaction Date of Last Stent Placement:: 2002 Past Psychological History: Depression Smoking Status: Never smoker Past Alcohol Use History: Occasional Past Drug Use History: None Reported - Past Family History Father Family Medical History: Cancer, Coronary Artery Disease (CAD) Additional Family Medical History / Comment(s): Pt was estranged from her father. She thinks he had some form of cancer and heart disease-he at the age of 54yrs. Mother Family Medical History: Coronary Artery Disease (CAD), Diabetes Mellitus Additional Family Medical History / Comment(s): Mother at the age of 72 yrs. General Exam Limitations: no limitations General appearance: alert, in no apparent distress Head exam: Present: atraumatic, normocephalic, normal inspection Eye exam: Present: normal appearance, PERRL, EOMI. Absent: scleral icterus, conjunctival injection, periorbital swelling ENT exam: Present: normal exam, mucous membranes moist Neck exam: Present: normal inspection, full ROM Respiratory exam: Present: normal lung sounds bilaterally. Absent: respiratory distress, wheezes, rales, rhonchi, stridor Cardiovascular Exam: Present: regular rate, normal rhythm, normal heart sounds. Absent: systolic murmur, diastolic murmur, rubs, gallop, clicks GI/Abdominal exam: Present: soft, normal bowel sounds. Absent: distended, tenderness, guarding, rebound, rigid Right Lower Leg exam: Present: full ROM, swelling Ankle exam: Present: full ROM, tenderness, swelling, erythema (medial aspect). Absent: abrasion, laceration, deformity Foot/Toe exam: Present: full ROM, swelling Neurovascular tendon exam: Present: no vascular compromise Gait: observed and limited by pain Back exam: Present: normal inspection Neurological exam: Present: alert, oriented X3, CN II-XII intact Psychiatric exam: Present: normal affect, normal mood Skin exam: Present: intact, erythema (as above) Course Vital Signs 05/10/22 13:56 Temperature 97.7 F Pulse Rate 69 Respiratory 16 Rate Blood Pressure 177/60 O2 Sat by Pulse 98 Oximetry Medical Decision Making - Medical Decision Making 86-year-old female presenting to the emergency room with 4 days of right ankle pain and swelling along with right foot swelling. Now with mild lower extremity swelling to the right. No shortness of breath associated. Will check x-ray right ankle along with Doppler of the right lower extremity. No indication for laboratory studies at this time. Denies analgesic need. X-ray negative for fracture. Soft tissue swelling noted. Doppler negative for DVT. Given previous history of similar gout presentation will proceed with discharge home on prednisone for gout treatment. Prednisone options discussed at length with patient and family. Will give 40 mg of prednisone 5 days along with Pepcid to prevent GI competitions as she reports GI upset from her previous prednisone dosing. No indication for taper. Return parameters discussed. Encourage follow-up with primary care provider. case discussed with Dr. Taylor Disposition Clinical Impression: Gout of right ankle Disposition: HOME SELF-CARE Condition: Stable Instructions (If sedation given, give patient instructions): Gout (ED) Additional Instructions: Please complete course of steroids as prescribed. Please take Pepcid while taking prednisone and then may utilize for heartburn as needed. Please follow-up with your primary care provider. Please return to the Emergency Department if symptoms worsen or any other concerns. Prescriptions: predniSONE [Deltasone] 20 mg PO DIRECTED #16 tab Famotidine [Pepcid] 20 mg PO DIRECTED 30 Days #30 tablet Is patient prescribed a controlled substance at d/c from ED?: No Referrals: Maeve Watkins MD [Primary Care Provider] - 1-2 days Time of Disposition: 16:06
--- NOTE | 2022-05-10 14:44 | XR ---
EXAMINATION TYPE: XR ankle complete RT DATE OF EXAM: 05/10/2022 COMPARISON: NONE HISTORY: Ankle pain TECHNIQUE: 3 views FINDINGS: Ankle mortise is anatomic. Plantar and Achilles calcaneal spurring. No fracture seen. There is mild soft tissue swelling . IMPRESSION: Soft tissue swelling. No fracture seen.
--- NOTE | 2022-05-10 15:32 | US ---
EXAMINATION TYPE: US venous doppler duplex LE RT DATE OF EXAM: 05/10/2022 2:33 PM COMPARISON: NONE CLINICAL HISTORY: pain and swelling. SIDE PERFORMED: Right TECHNIQUE: The lower extremity deep venous system is examined utilizing real time linear array sonog laila with graded compression, doppler sonography and color-flow sonography. VESSELS IMAGED: Common Femoral Vein Deep Femoral Vein Greater Saphenous Vein * Femoral Vein Popliteal Vein Small Saphenous Vein * Proximal Calf Veins (* superficial vessels) Right Leg: Negative for DVT IMPRESSION: No evidence of deep vein thrombosis in the right leg.
[2022-05-10 16:27] VITALS: BP 191/68; PULSE 60
== END 2022-05-10 16:26 | disposition home or self-care (01) ==
LOC: EC 13:51
DX: M10.071 Idiopathic gout, right ankle and foot (principal); I25.10 Atherosclerotic heart disease of native coronary artery without angina pectoris; I82.401 Acute embolism and thrombosis of unspecified deep veins of right lower extremity; I10 Essential (primary) hypertension; I21.9 Acute myocardial infarction, unspecified; M19.90 Unspecified osteoarthritis, unspecified site; E78.5 Hyperlipidemia, unspecified; Z79.83 Long term (current) use of bisphosphonates; Z79.02 Long term (current) use of antithrombotics/antiplatelets; Z79.899 Other long term (current) drug therapy; Z79.810 Long term (current) use of selective estrogen receptor modulators (SERMs); Z79.84 Long term (current) use of oral hypoglycemic drugs; Z88.2 Allergy status to sulfonamides
CPT/HCPCS: 99283; 99284

== ENCOUNTER 2024-06-06 08:00 | Observation (INO) | payer MEDICARE, OTHER ==
[2024-06-06] MEDS: SODIUM CHLORIDE 0.9% 1,000 ML IV STA (08:34)
[2024-06-06 08:47] LABS: Basophils % (A) 1 %; Eosinophils # (A) 0.2 k/uL (0-0.7); Eosinophils % (A) 2 %; HCT 39.7 % (34.0-46.0); HGB 13.2 gm/dL (11.4-16.0); Lymphocytes % (A) 15 %; MCH 32.5 pg (25.0-35.0); MCHC 33.3 g/dL (31.0-37.0); MCV 97.6 fL (80.0-100.0); Mean Platelet Volume 8.1; Monocytes # (A) 0.3 k/uL (0-1.0); Monocytes % (A) 5 %; Neutrophils # (A) 5.2 k/uL (1.3-7.7); Neutrophils % (A) 76 %; Platelet Count 120 k/uL (150-450); RBC 4.07 m/uL (3.80-5.40); WBC 6.9 k/uL (3.8-10.6)
[2024-06-06 09:01] LABS: Partial Thromboplastin Time 22.6 sec (22.0-30.0)
--- NOTE | 2024-06-06 09:03 | ED ---
General Adult HPI - General Chief complaint: Weakness Stated complaint: nausea/weakness Time Seen by Provider: 06/06/24 08:02 Source: patient, EMS, RN notes reviewed, old records reviewed Mode of arrival: EMS - History of Present Illness Initial comments: 88-year-old female presenting for evaluation of weakness, nausea and diarrhea. Symptoms began today. Patient denies fever. Denies chest pain or abdominal pain. Denies headache. Denies focal numbness or weakness. States that she felt fine yesterday. No known sick contacts. No cough, reports mild dyspnea - Related Data Home Medications Medication Instructions Recorded Confirmed Multivitamins, Thera [Multivitamin 1 tab PO DAILY 01/27/17 06/06/24 (formulary)] Metoprolol Tartrate [Lopressor] 25 mg PO BID 02/24/20 06/06/24 lisinopriL 20 mg PO BID 02/24/20 06/06/24 Aspirin EC [Ecotrin Low Dose] 81 mg PO DAILY 06/06/24 06/06/24 Cholecalciferol [Vitamin D3 (25 25 mcg PO DAILY 06/06/24 06/06/24 Mcg = 1000 Iu)] Lutein 20 mg PO DAILY 06/06/24 06/06/24 allopurinoL [Zyloprim] 100 mg PO DAILY 06/06/24 06/06/24 hydroCHLOROthiazide [Hydrodiuril] 12.5 mg PO DAILY 06/06/24 06/06/24 Allergies Allergy/AdvReac Type Severity Reaction Status Date / Time Sulfa (Sulfonamide Allergy Unknown Verified 06/06/24 09:47 Antibiotics) Childhood [id number] Reductase AdvReac Unknown Verified 06/06/24 09:47 Inhibitor Review of Systems ROS Statement: Those systems with pertinent positive or pertinent negative responses have been documented in the HPI. ROS Other: All systems not noted in ROS Statement are negative. Past Medical History Past Medical History: Coronary Artery Disease (CAD), Cancer, Chest Pain / An gui, Deep Vein Thrombosis (DVT), Hyperlipidemia, Hypertension, Myocardial Infarction (MO), Osteoarthritis (OA) Additional Past Medical History / Comment(s): Concussion, neuropathy feet, Hx- R ankle fracture, DVT R leg, macular degeneration, MO (2002, 2018) Last Myocardial Infarction Date:: NOVEMBER 2018 History of Any Multi-Drug Resistant Organisms: None Reported Past Surgical History: Adenoidectomy, Appendectomy, Heart Catheterization With Stent, Hysterectomy, Orthopedic Surgery, Tonsillectomy Additional Past Surgical History / Comment(s): 2002 Coronary stenting, cataracts with lens implants, colonoscopy, laparoscopic surgery for abdominal adhesions, R knee arthroscopic surgery. skin cancer removal from right leg 2023 Past Anesthesia/Blood Transfusion Reactions: No Reported Reaction Date of Last Stent Placement:: 2002 Past Psychological History: Depression Smoking Status: Former smoker Past Alcohol Use History: Occasional Past Drug Use History: None Reported - Past Family History Father Family Medical History: Cancer, Coronary Artery Disease (CAD) Additional Family Medical History / Comment(s): Pt was estranged from her father. She thinks he had some form of cancer and heart disease-he at the age of 54yrs. Mother Family Medical History: Coronary Artery Disease (CAD), Diabetes Mellitus Additional Family Medical History / Comment(s): Mother at the age of 72 yrs. General Exam General appearance: alert, in no apparent distress Head exam: Present: atraumatic, normocephalic Eye exam: Present: normal appearance, PERRL ENT exam: Present: mucous membranes dry Neck exam: Present: normal inspection. Absent: tenderness, meningismus Respiratory exam: Present: wheezes. Absent: respiratory distress Cardiovascular Exam: Present: regular rate, normal rhythm GI/Abdominal exam: Present: soft. Absent: distended, tenderness, guarding Extremities exam: Present: normal inspection, normal capillary refill Neurological exam: Present: alert, oriented X3, CN II-XII intact. Absent: motor sensory deficit Psychiatric exam: Present: normal affect, normal mood Skin exam: Present: warm, dry, intact Course Vital Signs 06/06/24 06/06/24 06/06/24 08:06 09:08 10:55 Temperature 97.5 F L Pulse Rate 59 L 58 L 64 Respiratory 18 18 18 Rate Blood Pressure 225/105 218/65 194/77 O2 Sat by Pulse 93 L 95 92 L Oximetry 06/06/24 06/06/24 11:12 12:04 Temperature Pulse Rate 69 50 L Respiratory 22 20 Rate Blood Pressure 226/89 212/63 O2 Sat by Pulse 94 L 91 L Oximetry Medical Decision Making - Medical Decision Making Was pt. sent in by a medical professional or institution (, PA, HEALTH SERVICE WORKER, urgent care, hospital, or fci...) When possible be specific @ -No Did you speak to anyone other than the patient for history (EMS, parent, family, police, friend...)? What history was obtained from this source @ -No Did you review nursing and triage notes (agree or disagree)? Why? @ -I reviewed and agree with nursing and triage notes Were old charts reviewed (outside hosp., previous admission, EMS record, old EKG, old radiological studies, urgent care reports/EKG's, fci records)? Report findings @ -No old charts were reviewed Differential Weakness: Hypoglycemia, shock, sepsis, hyponatremia, anemia, infection, MO, ETOH, adverse medicine reaction, overdose, stroke, this is not meant to be an all-inclusive list. EKG interpreted by me (3pts min.). @ -EKG: Sinus bradycardia tremor artifact rate of 54, NJ interval 184, QRS duration 87, QTc [address] segment elevation. X-rays interpreted by me (1pt min.). @ -Chest x-ray shows pulmonary vascular congestion and trace bilateral effusion CT interpreted by me (1pt min.). @ -None done U/S interpreted by me (1pt. min.). @ -None done What testing was considered but not performed or refused? (CT, X-rays, U/S, labs)? Why? @ -None What meds were considered but not given or refused? Why? @ -None Did you discuss the management of the patient with other professionals (professionals i.e. , PA, HEALTH SERVICE WORKER, lab, RT, psych nurse, criminal justice social worker, sales assistant entertainment and media, teacher, armor officer, disease case manager rn)? Give summary @ -[Case discussed with Dr. Mcconnell, will admit. Was smoking cessation discussed for >3mins.? @ -No Was critical care preformed (if so, how long)? @ -No Were there social determinants of health that impacted care today? How? (Homelessness, low income, unemployed, alcoholism, drug addiction, transportation, low edu. Level, literacy, decrease access to med. care, detention, rehab)? @ -No Was there de-escalation of care discussed even if they declined (Discuss DNR or withdrawal of care, Hospice)? DNR status @ -No What co-morbidities impacted this encounter? (DM, HTN, Smoking, COPD, CAD, Cancer, CVA, ARF, Chemo, Hep., AIDS, mental health diagnosis, sleep apnea, morbid obesity)? @ -CAD, hypertension Was patient admitted / discharged? Hospital course, mention meds given and route, prescriptions, significant lab abnormalities, going to OR and other pertinent info. @ -[88-year-old female with weakness, nausea, diarrhea, mild dyspnea. Chest x- ray does show concern for CHF. BNP is mildly elevated. The remainder of her laboratory testing is unremarkable. Patient will be observed overnight for diuresis. Undiagnosed new problem with uncertain prognosis? @ -No Drug Therapy requiring intensive monitoring for toxicity (Heparin, Nitro, Insulin, Cardizem)? @ -No Were any procedures done? @ -No Diagnosis/symptom? @ -Weakness, CHF Acute, or Chronic, or Acute on Chronic? @ -Acute Uncomplicated (without systemic symptoms) or Complicated (systemic symptoms)? @ -Default Side effects of treatment? @ -No Exacerbation, Progression, or Severe Exacerbation? @ -No Poses a threat to life or bodily function? How? (Chest pain, USA, MO, pneumonia, PE, COPD, DKA, ARF, appy, cholecystitis, CVA, Diverticulitis, Homicidal, Suicidal, threat to staff... and all critical care pts) @ -[Yes, respiratory failure, CHF - Lab Data Result diagrams: 06/06/24 08:31 06/06/24 08:31 Lab Results 06/06/24 06/06/24 06/06/24 Range/Units 08:31 08:31 08:31 WBC 6.9 (3.8-10.6) k/uL RBC 4.07 (3.80-5.40) m/uL Hgb 13.2 (11.4-16.0) gm/dL Hct 39.7 (34.0-46.0) % MCV 97.6 (80.0-100.0) fL MCH 32.5 (25.0-35.0) pg MCHC 33.3 (31.0-37.0) g/dL RDW 13.0 (11.5-15.5) % Plt Count 120 L (150-450) k/uL MPV 8.1 Neutrophils % 76 % Lymphocytes % 15 % Monocytes % 5 % Eosinophils % 2 % Basophils % 1 % Neutrophils # 5.2 (1.3-7.7) k/uL Lymphocytes # 1.0 (1.0-4.8) k/uL Monocytes # 0.3 (0-1.0) k/uL Eosinophils # 0.2 (0-0.7) k/uL Basophils # 0.0 (0-0.2) k/uL PT 11.0 (10.0-12.5) sec INR 1.0 (<1.2) APTT 22.6 (22.0-30.0) sec Sodium (137-145) mmol/L Potassium (3.5-5.1) mmol/L Chloride (98-107) mmol/L Carbon Dioxide (22-30) mmol/L Anion Gap mmol/L BUN (7-17) mg/dL Creatinine (0.52-1.04) mg/dL Est GFR (CKD-EPI)AfAm (>60 ml/min/1.73 sqM) Est GFR (CKD-EPI)NonAf (>60 ml/min/1.73 sqM) Glucose (74-99) mg/dL Plasma Lactic Acid Chucho (0.7-2.0) mmol/L Calcium (8.4-10.2) mg/dL Magnesium (1.6-2.3) mg/dL Total Bilirubin (0.2-1.3) mg/dL AST (14-36) U/L ALT (4-34) U/L Alkaline Phosphatase (38-126) U/L Troponin I (0.000-0.034) ng/mL NT-Pro-B Natriuret Pep pg/mL Total Protein (6.3-8.2) g/dL Albumin (3.5-5.0) g/dL Urine Color Colorless Urine Appearance Clear (Clear) Urine pH 7.0 (5.0-8.0) Ur Specific Flushing 1.007 (1.001-1.035) Urine Protein Trace H (Negative) Urine Glucose (UA) Negative (Negative) Urine Ketones Negative (Negative) Urine Blood Negative (Negative) Urine Nitrite Negative (Negative) Urine Bilirubin Negative (Negative) Urine Urobilinogen <2.0 (<2.0) mg/dL Ur Leukocyte Esterase Negative (Negative) Influenza Type A (PCR) (Not Detectd) Influenza Type B (PCR) (Not Detectd) RSV (PCR) (Not Detectd) SARS-CoV-2 (PCR) (Not Detectd) 06/06/24 06/06/24 06/06/24 Range/Units 08:31 08:31 08:31 WBC (3.8-10.6) k/uL RBC (3.80-5.40) m/uL Hgb (11.4-16.0) gm/dL Hct (34.0-46.0) % MCV (80.0-100.0) fL MCH (25.0-35.0) pg MCHC (31.0-37.0) g/dL RDW (11.5-15.5) % Plt Count (150-450) k/uL MPV Neutrophils % % Lymphocytes % % Monocytes % % Eosinophils % % Basophils % % Neutrophils # (1.3-7.7) k/uL Lymphocytes # (1.0-4.8) k/uL Monocytes # (0-1.0) k/uL Eosinophils # (0-0.7) k/uL Basophils # (0-0.2) k/uL PT (10.0-12.5) sec INR (<1.2) APTT (22.0-30.0) sec Sodium 140 (137-145) mmol/L Potassium 4.5 (3.5-5.1) mmol/L Chloride 107 (98-107) mmol/L Carbon Dioxide 24 (22-30) mmol/L Anion Gap 9 mmol/L BUN 18 H (7-17) mg/dL Creatinine 0.68 (0.52-1.04) mg/dL Est GFR (CKD-EPI)AfAm >90 (>60 ml/min/1.73 sqM) Est GFR (CKD-EPI)NonAf 78 (>60 ml/min/1.73 sqM) Glucose 127 H (74-99) mg/dL Plasma Lactic Acid Chucho 2.0 (0.7-2.0) mmol/L Calcium 8.6 (8.4-10.2) mg/dL Magnesium 1.7 (1.6-2.3) mg/dL Total Bilirubin 0.7 (0.2-1.3) mg/dL AST 38 H (14-36) U/L ALT 19 (4-34) U/L Alkaline Phosphatase 58 (38-126) U/L Troponin I 0.019 (0.000-0.034) ng/mL NT-Pro-B Natriuret Pep pg/mL Total Protein 7.3 (6.3-8.2) g/dL Albumin 4.2 (3.5-5.0) g/dL Urine Color Urine Appearance (Clear) Urine pH (5.0-8.0) Ur Specific Flushing (1.001-1.035) Urine Protein (Negative) Urine Glucose (UA) (Negative) Urine Ketones (Negative) Urine Blood (Negative) Urine Nitrite (Negative) Urine Bilirubin (Negative) Urine Urobilinogen (<2.0) mg/dL Ur Leukocyte Esterase (Negative) Influenza Type A (PCR) (Not Detectd) Influenza Type B (PCR) (Not Detectd) RSV (PCR) (Not Detectd) SARS-CoV-2 (PCR) (Not Detectd) 06/06/24 06/06/24 Range/Units 08:31 08:31 WBC (3.8-10.6) k/uL RBC (3.80-5.40) m/uL Hgb (11.4-16.0) gm/dL Hct (34.0-46.0) % MCV (80.0-100.0) fL MCH (25.0-35.0) pg MCHC (31.0-37.0) g/dL RDW (11.5-15.5) % Plt Count (150-450) k/uL MPV Neutrophils % % Lymphocytes % % Monocytes % % Eosinophils % % Basophils % % Neutrophils # (1.3-7.7) k/uL Lymphocytes # (1.0-4.8) k/uL Monocytes # (0-1.0) k/uL Eosinophils # (0-0.7) k/uL Basophils # (0-0.2) k/uL PT (10.0-12.5) sec INR (<1.2) APTT (22.0-30.0) sec Sodium (137-145) mmol/L Potassium (3.5-5.1) mmol/L Chloride (98-107) mmol/L Carbon Dioxide (22-30) mmol/L Anion Gap mmol/L BUN (7-17) mg/dL Creatinine (0.52-1.04) mg/dL Est GFR (CKD-EPI)AfAm (>60 ml/min/1.73 sqM) Est GFR (CKD-EPI)NonAf (>60 ml/min/1.73 sqM) Glucose (74-99) mg/dL Plasma Lactic Acid Chucho (0.7-2.0) mmol/L Calcium (8.4-10.2) mg/dL Magnesium (1.6-2.3) mg/dL Total Bilirubin (0.2-1.3) mg/dL AST (14-36) U/L ALT (4-34) U/L Alkaline Phosphatase (38-126) U/L Troponin I (0.000-0.034) ng/mL NT-Pro-B Natriuret Pep 2560 pg/mL Total Protein (6.3-8.2) g/dL Albumin (3.5-5.0) g/dL Urine Color Urine Appearance (Clear) Urine pH (5.0-8.0) Ur Specific Flushing (1.001-1.035) Urine Protein (Negative) Urine Glucose (UA) (Negative) Urine Ketones (Negative) Urine Blood (Negative) Urine Nitrite (Negative) Urine Bilirubin (Negative) Urine Urobilinogen (<2.0) mg/dL Ur Leukocyte Esterase (Negative) Influenza Type A (PCR) Not Detected (Not Detectd) Influenza Type B (PCR) Not Detected (Not Detectd) RSV (PCR) Not Detected (Not Detectd) SARS-CoV-2 (PCR) Not Detected (Not Detectd) Disposition Clinical Impression: CHF (congestive heart failure) Disposition: ADMITTED IP TO THIS HOSP Condition: Stable Is patient prescribed a controlled substance at d/c from ED?: No Referrals: Maeve Watkins MD [Primary Care Provider] - 1-2 days Time of Disposition: 12:26
[2024-06-06 09:05] LABS: ALT 19 U/L (4-34); African American GFR (CKD) >90 (>60 ml/min/1.73 sqM); Anion Gap 9 mmol/L; Blood Urea Nitrogen 18 mg/dL (7-17); Calcium 8.6 mg/dL (8.4-10.2); Carbon Dioxide 24 mmol/L (22-30); Chloride 107 mmol/L (98-107); Glucose 127 mg/dL (74-99); Non-African American GFR(CKD) 78 (>60 ml/min/1.73 sqM); Sodium 140 mmol/L (137-145); Total Bilirubin 0.7 mg/dL (0.2-1.3)
--- NOTE | 2024-06-06 09:07 | XR ---
EXAMINATION TYPE: XR chest 2V DATE OF EXAM: 06/06/2024 8:40 AM COMPARISON: 11/10/2018 CLINICAL INDICATION: Female, 88 years old with history of Weakness, TECHNIQUE: XR chest 2V view(s) obtained. FINDINGS: The heart size is enlarged. The pulmonary vasculature is prominent. Diffuse increased lung markings are present bilaterally. IMPRESSION: 1. Clinical correlation for congestive heart failure. Follow-up is recommended [facility], , 06/06/2024 9:05 AM
[2024-06-06 09:17] LABS: AST 38 U/L (14-36); Albumin 4.2 g/dL (3.5-5.0); Alkaline Phosphatase 58 U/L (38-126); Magnesium 1.7 mg/dL (1.6-2.3); Potassium 4.5 mmol/L (3.5-5.1); Total Protein 7.3 g/dL (6.3-8.2)
[2024-06-06 10:26] LABS: Appearance,Urine Clear (Clear); Bilirubin,Urine Negative (Negative); Blood,Urine Negative (Negative); Color,Urine Colorless; Glucose,Urine (UA) Negative (Negative); Ketones,Urine Negative (Negative); Leukocyte Esterase,Urine Negative (Negative); Nitrite,Urine Negative (Negative); Protein,Urine Trace (Negative); Specific Gravity,Urine 1.007 (1.001-1.035); Urobilinogen,Urine <2.0 mg/dL (<2.0)
[2024-06-06] MEDS: FUROSEMIDE 10 MG/ML 4 ML VIAL IV STA (11:01)
[2024-06-06] MEDS: lisinopriL 20 MG TAB PO SCH (11:15)
[2024-06-06] MEDS: METOPROLOL TARTRATE 25 MG TAB PO SCH (11:16)
[2024-06-06] MEDS ORDERED: NALOXONE 0.4 MG/ML 1 ML VIAL IV PRN (12:22)
[2024-06-06] MEDS: ACETAMINOPHEN TAB 325 MG TAB PO PRN (16:38)
[2024-06-06] MEDS: hydrALAZINE HCL 25 MG TAB PO SCH (17:56)
[2024-06-06] MEDS: FUROSEMIDE 10 MG/ML 2 ML VIAL IV SCH (19:59)
[2024-06-06] MEDS ORDERED: METOPROLOL TARTRATE 25 MG TAB PO SCH (21:00)
[2024-06-06] MEDS ORDERED: lisinopriL 20 MG TAB PO SCH (21:00)
[2024-06-07 08:28] LABS: Basophils # (A) 0.05 X 10*3/uL (0.00-0.10); Basophils % (A) 0.7 %; Eosinophils # (A) 0.19 X 10*3/uL (0.04-0.35); Eosinophils % (A) 2.7 %; HCT 36.6 % (37.2-46.3); HGB 12.4 g/dL (12.0-15.0); Lymphocytes # (A) 2.17 X 10*3/uL (0.90-5.00); Lymphocytes % (A) 30.4 %; MCH 32.3 pg (27.0-32.0); MCHC 33.9 g/dL (32.0-37.0); MCV 95.3 FL (80.0-97.0); Monocytes # (A) 0.55 X 10*3/uL (0.20-1.00); Monocytes % (A) 7.7 %; NRBC Per 100 WBC 0 X 10*3/uL (0.00-0.01); Neutrophils # (A) 4.16 X 10*3/uL (1.80-7.70); Neutrophils % (A) 58.2 %; Platelet Count 149 X 10*3/uL (140-440); RBC 3.84 X 10*6/uL (4.10-5.20); WBC 7.14 X 10*3/uL (4.50-10.00)
--- NOTE | 2024-06-07 08:55 | P.HPIM ---
History of Present Illness H&P Date: 06/06/24 Zoya Grimaldo, is an 88-year-old female patient who presented to the hospital with complaints of weakness nausea and diarrhea patient reports that symptoms started yesterday she denies any sick contacts or fever. Patient has a past medical history of CAD with multiple stents, chest pain, DVT, hyperlipidemia, hypertension, osteoarthritis and depression. Chest x-ray revealed clinical correlation for CHF. EKG completed showing sinus bradycardia. Lab work revealed white blood cell 6.9, hemoglobin 13.2, creatinine 0.68 bun 18 troponin 0.019, BNP 2560. At this time patient will be admitted cardiology services consulted patient started on IV Lasix. 2D echo has been ordered. stool for C. difficile and abdomen ultrasound ordered for nausea and diarrhea. At this time patient reports she feels much improved. Patient denies chest pain or shortness of breath. Patient denies nausea vomiting or diarrhea. Patient denies any urinary burning or frequency Review of Systems Please refer to HPI otherwise unremarkable Past Medical History Past Medical History: Coronary Artery Disease (CAD), Cancer, Chest Pain / Angina , Deep Vein Thrombosis (DVT), Hyperlipidemia, Hypertension, Myocardial Infarction ([place]), Osteoarthritis (OA) Additional Past Medical History / Comment(s): Concussion, neuropathy feet, Hx- R ankle fracture, DVT R leg, macular degeneration, NE (2002, 2018) Last Myocardial Infarction Date:: NOVEMBER 2018 History of Any Multi-Drug Resistant Organisms: None Reported Past Surgical History: Adenoidectomy, Appendectomy, Heart Catheterization With Stent, Hysterectomy, Orthopedic Surgery, Tonsillectomy Additional Past Surgical History / Comment(s): 2002 Coronary stenting, cataracts with lens implants, colonoscopy, laparoscopic surgery for abdominal adhesions, R knee arthroscopic surgery. skin cancer removal from right leg 2023 Past Anesthesia/Blood Transfusion Reactions: No Reported Reaction Date of Last Stent Placement:: 2002 Past Psychological History: Depression Smoking Status: Former smoker Past Alcohol Use History: Occasional Past Drug Use History: None Reported - Past Family History Father Family Medical History: Cancer, Coronary Artery Disease (CAD) Additional Family Medical History / Comment(s): Pt was estranged from her father. She thinks he had some form of cancer and heart disease-he at the age of 54yrs. Mother Family Medical History: Coronary Artery Disease (CAD), Diabetes Mellitus Additional Family Medical History / Comment(s): Mother at the age of 72 yrs. Medications and Allergies Home Medications Medication Instructions Recorded Confirmed Type Multivitamins, Thera [Multivitamin 1 tab PO DAILY 01/27/17 06/06/24 History (formulary)] Metoprolol Tartrate [Lopressor] 25 mg PO BID 02/24/20 06/06/24 History lisinopriL 20 mg PO BID 02/24/20 06/06/24 History Aspirin EC [Ecotrin Low Dose] 81 mg PO DAILY 06/06/24 06/06/24 History Cholecalciferol [Vitamin D3 (25 25 mcg PO DAILY 06/06/24 06/06/24 History Mcg = 1000 Iu)] Lutein 20 mg PO DAILY 06/06/24 06/06/24 History allopurinoL [Zyloprim] 100 mg PO DAILY 06/06/24 06/06/24 History hydroCHLOROthiazide [Hydrodiuril] 12.5 mg PO DAILY 06/06/24 06/06/24 History Allergies Allergy/AdvReac Type Severity Reaction Status Date / Time Sulfa (Sulfonamide Allergy Unknown Verified 06/06/24 09:47 Antibiotics) Childhood Ssmxsab-YRT-[id number] Reductase AdvReac Unknown Verified 06/06/24 09:47 Inhibitor Physical Exam Vitals: Vital Signs Temp Pulse Resp BP Pulse Ox 06/06/24 16:11 54 L 20 180/53 92 L 06/06/24 15:13 55 L 20 193/64 94 L 06/06/24 13:51 49 L 20 177/50 96 06/06/24 12:50 54 L 20 213/65 96 06/06/24 12:04 50 L 20 212/63 91 L 06/06/24 11:12 69 22 226/89 94 L 06/06/24 10:55 64 18 194/77 92 L 06/06/24 09:08 58 L 18 218/65 95 06/06/24 08:06 97.5 F L 59 L 18 225/105 93 L Intake and Output 06/06/24 06/06/24 06/06/24 06:59 14:59 22:59 Other: Weight 61.235 kg In general patient is alert and oriented x 3 in no distress HEENT head normocephalic and atraumatic Neck is supple no JVD no goiter no lymphadenopathy no carotid bruit Chest examination is clear to auscultation no crackles no wheezing Cardiac exam reveals regular heart sounds S1 and S2 no gallops no murmurs Abdomen is soft nontender no organomegaly with normal bowel sounds Extremity exam reveals no edema no cyanosis or clubbing Neurological examination reveals no gross focal deficits Results CBC & Chem 7: 06/07/24 05:08 06/06/24 08:31 Labs: Abnormal Lab Results - Last 24 Hours (Table) 06/06/24 06/06/24 06/06/24 Range/Units 08:31 08:31 08:31 Plt Count 120 L (150-450) k/uL BUN 18 H (7-17) mg/dL Glucose 127 H (74-99) mg/dL AST 38 H (14-36) U/L Urine Protein Trace H (Negative) Assessment and Plan Plan: Generalized weakness with nausea and diarrhea Evidence of acute exacerbation of congestive heart failure, with a chest x-ray revealing pulmonary vascular congestion and cardiomegaly. Gastroenteritis with nausea and diarrhea, will check stools for culture and C. difficile History of CAD with multiple stent placement History of chest pain History of hyperlipidemia History of DVT History of essential hypertension History of depression DVT prophylaxis Lovenox. GI prophylax Protonix Cardiology services consulted Patient started on IV Lasix Abdomen ultrasound ordered Stool for C. difficile ordered Repeat labs ordered Time with Patient: Greater than 30 (Greater than 60% of the total time spent in counseling and coordination of care)
--- NOTE | 2024-06-07 08:56 | P.PN ---
Subjective Progress Note Date: 06/07/24 Zoya Grimaldo, is an 88-year-old female patient who presented to the hospital with complaints of weakness nausea and diarrhea patient reports that symptoms started yesterday she denies any sick contacts or fever. Patient has a past medical history of CAD with multiple stents, chest pain, DVT, hype rlipidemia, hypertension, osteoarthritis and depression. Chest x-ray revealed clinical correlation for CHF. EKG completed showing sinus bradycardia. Lab work revealed white blood cell 6.9, hemoglobin 13.2, creatinine 0.68 bun 18 troponin 0.019, BNP 2560. At this time patient will be admitted cardiology services consulted patient started on IV Lasix. 2D echo has been ordered. stool for C. difficile and abdomen ultrasound ordered for nausea and diarrhea. At this time patient reports she feels much improved. Patient denies chest pain or shortness of breath. Patient denies nausea vomiting or diarrhea. Patient denies any urinary burning or frequency On 06/07/2024 patient is alert and oriented x 3. Patient reports she feels significantly improved. Patient remains on IV Lasix. Awaiting cardiology input. Abdomen ultrasound has been ordered. Patient blood pressure also remains high current vital signs temp 98.2, heart rate 67, respiratory rate 16, blood pressure 173/56 with pulse ox of 98% on room air patient denies chest pain or shortness of breath. Patient denies nausea vomiting or diarrhea. Patient denies any urinary burning or frequency Objective - Vital Signs Vital signs: Vital Signs Temp 98.2 F 06/07/24 07:17 Pulse 67 06/07/24 07:17 Resp 16 06/07/24 07:17 BP 173/56 06/07/24 07:17 Pulse Ox 98 06/07/24 07:17 FiO2 Intake & Output 06/06/24 06/07/24 06/07/24 18:59 06:59 18:59 Intake Total 240 118 Balance 240 118 Weight 61.235 kg Intake: Oral 240 118 - Exam In general patient is alert and oriented x 3 in no distress HEENT head normocephalic and atraumatic Neck is supple no JVD no goiter no lymphadenopathy no carotid bruit Chest examination is clear to auscultation no crackles no wheezing Cardiac exam reveals regular heart sounds S1 and S2 no gallops no murmurs Abdomen is soft nontender no organomegaly with normal bowel sounds Extremity exam reveals no edema no cyanosis or clubbing Neurological examination reveals no gross focal deficits - Labs CBC & Chem 7: 06/07/24 05:08 06/06/24 08:31 Labs: Abnormal Lab Results - Last 24 Hours (Table) 06/06/24 06/06/24 06/07/24 Range/Units 08:31 08:31 05:08 RBC 3.84 L (4.10-5.20) X 10*6/uL Hct 36.6 L (37.2-46.3) % MCH 32.3 H (27.0-32.0) pg BUN 18 H (7-17) mg/dL Glucose 127 H (74-99) mg/dL AST 38 H (14-36) U/L Urine Protein Trace H (Negative) Assessment and Plan Plan: Generalized weakness with nausea and diarrhea Evidence of acute exacerbation of congestive heart failure, with a chest x-ray revealing pulmonary vascular congestion and cardiomegaly. Gastroenteritis with nausea and diarrhea, will check stools for culture and C. difficile History of CAD with multiple stent placement History of chest pain History of hyperlipidemia History of DVT History of essential hypertension History of depression DVT prophylaxis Lovenox. GI prophylax Protonix Cardiology services consulted Patient started on IV Lasix Abdomen ultrasound ordered Stool for C. difficile ordered Repeat labs ordered
[2024-06-07] MEDS: ENOXAPARIN 40 MG/0.4 ML SYRINGE SQ SCH (09:06)
[2024-06-07] MEDS: ASPIRIN 81 MG PO SCH (09:07)
[2024-06-07] MEDS: amLODIPine 10 MG TAB PO SCH (09:07)
[2024-06-07] MEDS: hydroCHLOROthiazide 12.5 MG CAP PO SCH (09:07)
[2024-06-07 09:14] LABS: ALT 15 U/L (8-44); AST 19 U/L (13-35); Albumin 3.8 g/dL (3.8-4.9); Albumin/Globulin Ratio 1.58 Ratio (1.60-3.17); Alkaline Phosphatase 72 U/L (41-126); Blood Urea Nitrogen 19.3 mg/dL (9.0-27.0); Calcium 9.1 mg/dL (8.7-10.3); Carbon Dioxide 24.9 mmol/L (21.6-31.8); Chloride 105 mmol/L (96-109); Globulin 2.4 g/dL (1.6-3.3); Glucose 98 mg/dL (70-110); Potassium 3.9 mmol/L (3.5-5.5); Sodium 142 mmol/L (135-145); Total Bilirubin 0.4 mg/dL (0.3-1.2); Total Protein 6.2 g/dL (6.2-8.2)
--- NOTE | 2024-06-07 10:22 | CA ---
Transthoracic Echo Report Name: Zoya Grimaldo Age: 88 Gender: F : 1935 Exam Date: 06/07/2024 08:43 Exam Location: [facility] Ht (in): 61 Wt (lb): 135 Ordering Physician: Bin Mcconnell MD Attending/Referring Phys: Project Intern Rocío Hernandez RDCS Procedure CPT: Indications: Congestive heart failure Cardiac Hx: HTH Technical Quality: Good Contrast 1: Total Dose (mL): Contrast 2: Total Dose (mL): MEASUREMENTS (Male / Female) Normal Values 2D ECHO LV Diastolic Diameter PLAX 3.9 cm 4.2 - 5.9 / 3.9 - 5.3 cm LV Systolic Diameter PLAX 2.7 cm IVS Diastolic Thickness 1.0 cm 0.6 - 1.0 / 0.6 - 0.9 cm LVPW Diastolic Thickness 0.9 cm 0.6 - 1.0 / 0.6 - 0.9 cm LV Relative Wall Thickness 0.5 RV Internal Dim ED PLAX 3.2 cm LA Systolic Diameter LX 3.7 cm 3.0 - 4.0 / 2.7 - 3.8 cm LV Diastolic Volume MOD 4C 84.0 cm??? LV Systolic Volume MOD 4C 28.0 cm??? LV Ejection Fraction MOD 4C 66.7 % LV Cardiac Index MOD 4C 2020.3 cm???/min???m??? LV Diastolic Length 4C 7.5 cm LV Systolic Length 4C 5.7 cm LV Diastolic Volume MOD 2C 61.6 cm??? LV Systolic Volume MOD 2C 21.2 cm??? LV Ejection Fraction MOD 2C 65.6 % LV Cardiac Index MOD 2C 1457.0 cm???/min???m??? LV Diastolic Length 2C 7.0 cm LV Systolic Length 2C 5.6 cm M-MODE Aortic Root Diameter MM 3.1 cm LA Ao Ratio MM 1.2 DOPPLER AV Peak Velocity 186.5 cm/s AV Peak Gradient 13.9 mmHg AV Mean Velocity 123.7 cm/s AV Mean Gradient 6.7 mmHg AV Velocity Time Integral 46.2 cm AI Peak Velocity 414.5 cm/s AI Peak Gradient 68.7 mmHg AI Pressure Half Time 395.2 ms Mitral E Point Velocity 110.6 cm/s Mitral A Point Velocity 117.1 cm/s Mitral E to A Ratio 0.9 MV Deceleration Time 192.1 ms MV E' Velocity 5.0 cm/s Mitral E to MV E' Ratio 22.1 TR Peak Velocity 300.1 cm/s TR Peak Gradient 36.0 mmHg Right Ventricular Systolic Press 46.0 mmHg FINDINGS Left Ventricle Left ventricular ejection fraction is estimated at 60-65 %. Left ventricular cavity size normal. Right Ventricle Normal right ventricular size and function. Moderate pulmonary hypertension. Right ventricular systolic pressure estimated at 46 mm hg. Right Atrium Normal right atrial size. No right atrial thrombus or mass seen. Left Atrium Normal left atrial size. No left atrial thrombus or mass present. Mitral Valve Structurally normal mitral valve. Mild mitral regurgitation. Aortic Valve Trileaflet aortic valve. No aortic stenosis. Mild aortic regurgitation. Tricuspid Valve Structurally normal tricuspid valve. Mild tricuspid regurgitation. Pulmonic Valve Structurally normal pulmonic valve. Trace to mild pulmonic regurgitation. Pericardium No pericardial or pleural effusion. Aorta Normal size aortic root and proximal ascending aorta. CONCLUSIONS Normal LV systolic function Moderate pulmonary hypertension Mild mitral and aortic regurgitation Previewed by: Dr. Geronimo Steiner MD (Electronically Signed) Final Date: 07 June 2024 10:21
--- NOTE | 2024-06-07 10:29 | P.CRDCN ---
History of Present Illness History of present illness: HISTORY OF PRESENT ILLNESS: This is a 88-year-old female with a past medical history significant for coronary artery disease with previous stenting, valvular heart disease, hypertension, hyperlipidemia, peripheral vascular disease, and former nicotine dependence. Patient follows in the office with Dr. Morris. We have been asked to see the patient in consultation for congestive heart failure. Patient examined at the bedside. Patient states yesterday she was feeling nauseated and having episodes of vomiting. She also reports having episodes of just dry heaving. She also reports having diarrhea. She states that she began to feel weak as the day went on and lives alone so she was concerned and came to the hospital for further evaluation. Patient's blood pressure was found to be significantly elevated with a systolic greater than 200. Patient states she has been taking all of her cardiac medications without missing any doses. She states that she does not check her blood pressure at home. Patient denies having any chest pain or pressure. She denies having any shortness of breath. Denies any cough or fever. Patient's blood pressure remains elevated this morning with a systolic in the 170s. DIAGNOSTICS: - EKG reveals sinus bradycardia with significant baseline artifact. No obvious signs of acute ischemia. - Chest xray cardiomegaly. Pulmonary vasculature is prominent. Diffuse increased lung markings present bilaterally. Clinical correlation for congestive heart failure. - Laboratory data: WBC 7.14. Hemoglobin 12.4. Platelet count 149. Sodium 142. Potassium 3.9. BUN 19. Creatinine 1.0. Troponin negative x 1. proBNP 2560. - Current home cardiac medications include metoprolol tartrate 25 mg twice a day, hydrochlorothiazide 12.5 mg daily, lisinopril 20 mg twice a day, and aspirin 81 mg daily - Most recent echocardiogram obtained in May 2022 revealing normal EF, moderate AR, mild , mild TR, moderate MR - Cardiac catheterization history: December 2018 with stenting to the proximal LAD and mid LAD REVIEW OF SYSTEMS: At the time of my exam: CONSTITUTIONAL: Denies fever or chills. HEENT: Denies blurred vision, vision changes, or eye pain. Denies hemoptysis CARDIOVASCULAR: Denies chest pain. Denies orthopnea. Denies PND. Denies palpitations RESPIRATORY: Denies shortness of breath. GASTROINTESTINAL: Denies abdominal pain. Denies nausea or vomiting. HEMATOLOGIC: Denies bleeding disorders. GENITOURINARY: Denies any blood in urine. SKIN: Denies pruitis. Denies rash. PHYSICAL EXAM: VITAL SIGNS: Reviewed. GENERAL: Well-developed in no acute distress. HEENT: Head is normocephalic. Pupils are equal, round. Sclerae anicteric. Mucous membranes of the mouth are moist. Neck supple. No JVD or thyromegaly LUNGS: Respirations even and unlabored. Lungs essentially clear to auscultation bilaterally. HEART: Regular rate and rhythm. S1 and S2 heard. Systolic murmur noted ABDOMEN: Soft. Nondistended. Nontender. EXTREMITIES: Normal range of motion. No clubbing or cyanosis. Peripheral pulses intact. No lower extremity edema NEUROLOGIC: Awake and alert. Oriented x 3. ASSESSMENT: Nausea, vomiting, diarrhea Possible mild acute heart failure with preserved EF, currently euvolemic Hypertensive emergency Coronary artery disease with previous stenting Valvular heart disease including moderate AR, mild , mild TR, moderate MR Hypertension Hyperlipidemia Peripheral vascular disease Former nicotine dependence PLAN: Obtain 2D echo to assess cardiac structure and function Discontinue IV Lasix as patient is currently euvolemic at the time of examination Add amlodipine 10 mg daily Patient has been started on hydralazine 25 mg twice a day by primary medicine Continue to monitor blood pressure If patient's blood pressures are improved, she may be discharged home today from a cardiac standpoint and follow-up in the office with Dr. Morris Nurse practitioner note has been reviewed by physician. Signing provider agrees with the documented findings, assessment, and plan of care documented by MACHINE MOLDER SQUEEZE as a scribe. Past Medical History Past Medical History: Coronary Artery Disease (CAD), Cancer, Chest Pain / Angina, Deep Vein Thrombosis (DVT), Hyperlipidemia, Hypertension, Myocardial Infarction (LA), Osteoarthritis (OA) Additional Past Medical History / Comment(s): Concussion, neuropathy feet, Hx- R ankle fracture, DVT R leg, macular degeneration, [place] (2002, 2018) Last Myocardial Infarction Date:: NOVEMBER 2018 History of Any Multi-Drug Resistant Organisms: None Reported Past Surgical History: Adenoidectomy, Appendectomy, Heart Catheterization With Stent, Hysterectomy, Orthopedic Surgery, Tonsillectomy Additional Past Surgical History / Comment(s): 2002 Coronary stenting, cataracts with lens implants, colonoscopy, laparoscopic surgery for abdominal adhesions, R knee arthroscopic surgery. skin cancer removal from right leg 2024 Past Anesthesia/Blood Transfusion Reactions: No Reported Reaction Date of Last Stent Placement:: 2002 Past Psychological History: Depression Smoking Status: Former smoker Past Alcohol Use History: Occasional Past Drug Use History: None Reported - Past Family History Father Family Medical History: Cancer, Coronary Artery Disease (CAD) Additional Family Medical History / Comment(s): Pt was estranged from her father. She thinks he had some form of cancer and heart disease-he at the age of 54yrs. Mother Family Medical History: Coronary Artery Disease (CAD), Diabetes Mellitus Additional Family Medical History / Comment(s): Mother at the age of 72 yrs. Medications and Allergies Home Medications Medication Instructions Recorded Confirmed Type Multivitamins, Thera [Multivitamin 1 tab PO DAILY 01/27/17 06/06/24 History (formulary)] Metoprolol Tartrate [Lopressor] 25 mg PO BID 02/24/20 06/06/24 History lisinopriL 20 mg PO BID 02/24/20 06/06/24 History Aspirin EC [Ecotrin Low Dose] 81 mg PO DAILY 06/06/24 06/06/24 History Cholecalciferol [Vitamin D3 (25 25 mcg PO DAILY 06/06/24 06/06/24 History Mcg = 1000 Iu)] Lutein 20 mg PO DAILY 06/06/24 06/06/24 History allopurinoL [Zyloprim] 100 mg PO DAILY 06/06/24 06/06/24 History hydroCHLOROthiazide [Hydrodiuril] 12.5 mg PO DAILY 06/06/24 06/06/24 History Allergies Allergy/AdvReac Type Severity Reaction Status Date / Time Sulfa (Sulfonamide Allergy Unknown Verified 06/06/24 09:47 Antibiotics) Childhood [id number]-ZDY-[id number] Reductase AdvReac Unknown Verified 06/06/24 09:47 Inhibitor Physical Exam Vitals: Vital Signs Temp Pulse Pulse Resp BP BP Pulse Ox 06/07/24 07:17 98.2 F 67 16 173/56 98 06/07/24 02:00 97.8 F 57 L 14 143/65 93 L 06/06/24 18:29 97.5 F L 53 L 16 186/65 94 L 06/06/24 18:11 55 L 18 195/60 94 L 06/06/24 17:33 58 L 20 190/62 93 L 06/06/24 16:11 54 L 20 180/53 92 L 06/06/24 15:13 55 L 20 193/64 94 L 06/06/24 13:51 49 L 20 177/50 96 06/06/24 12:50 54 L 20 213/65 96 06/06/24 12:04 50 L 20 212/63 91 L 06/06/24 11:12 69 22 226/89 94 L 06/06/24 10:55 64 18 194/77 92 L Intake and Output 06/06/24 06/07/24 06/07/24 22:59 06:59 14:59 Intake Total 120 120 118 Balance 120 120 118 Intake: Oral 120 120 118 Other: Weight 61.235 kg Results 06/07/24 05:08 06/07/24 05:08 Cardiac Enzymes 06/07/24 Range/Units 05:08 AST 19 (13-35) U/L CBC 06/07/24 Range/Units 05:08 WBC 7.14 (4.50-10.00) X 10*3/uL RBC 3.84 L (4.10-5.20) X 10*6/uL Hgb 12.4 (12.0-15.0) g/dL Hct 36.6 L (37.2-46.3) % Plt Count 149 (140-440) X 10*3/uL Comprehensive Metabolic Panel 06/07/24 Range/Units 05:08 Sodium 142 (135-145) mmol/L Potassium 3.9 (3.5-5.5) mmol/L Chloride 105 (96-109) mmol/L Carbon Dioxide 24.9 (21.6-31.8) mmol/L BUN 19.3 (9.0-27.0) mg/dL Creatinine 1.0 (0.6-1.5) mg/dL Glucose 98 (70-110) mg/dL Calcium 9.1 (8.7-10.3) mg/dL AST 19 (13-35) U/L ALT 15 (8-44) U/L Alkaline Phosphatase 72 (41-126) U/L Total Protein 6.2 (6.2-8.2) g/dL Albumin 3.8 (3.8-4.9) g/dL Current Medications Generic Name Dose Route Start Last Admin Trade Name Freq PRN Reason Stop Dose Admin Acetaminophen 650 mg 06/06/24 12:22 11/05/24 02:10 Acetaminophen Tab 325 Mg Tab PO 650 mg Q6HR PRN Administration Mild Pain or Fever > 100.5 Amlodipine Besylate 10 mg 06/07/24 09:00 06/07/24 09:07 Amlodipine 10 Mg Tab PO 10 mg DAILY MELVIN Administration Aspirin 81 mg 06/07/24 09:00 06/07/24 09:07 Aspirin 81 Mg PO 81 mg DAILY MELVIN Administration Enoxaparin Sodium 40 mg 06/07/24 09:00 06/07/24 09:06 Enoxaparin 40 Mg/0.4 Ml Syringe SQ 40 mg DAILY MELVIN Administration Hydralazine HCl 25 mg 06/06/24 17:42 06/07/24 09:07 Hydralazine Hcl 25 Mg Tab PO 25 mg BID MELVIN Administration Hydrochlorothiazide 12.5 mg 06/07/24 09:00 06/07/24 09:07 Hydrochlorothiazide 12.5 Mg Cap PO 12.5 mg DAILY MELVIN Administration Lisinopril 20 mg 06/06/24 11:06 06/07/24 09:07 Lisinopril 20 Mg Tab PO 20 mg BID MELVIN Administration Metoprolol Tartrate 25 mg 06/06/24 11:06 06/07/24 09:07 Metoprolol Tartrate 25 Mg Tab PO 25 mg BID MELVIN Administration Naloxone HCl 0.2 mg 06/06/24 12:22 Naloxone 0.4 Mg/Ml 1 Ml Vial IV Q2M PRN Opioid Reversal Pantoprazole Sodium 40 mg 06/08/24 07:30 Pantoprazole 40 Mg Tablet PO AC-[id number] [facility] Intake and Output 06/06/24 06/07/24 06/07/24 22:59 06:59 14:59 Intake Total 120 120 118 Balance 120 120 118 Intake: Oral 120 120 118 Other: Weight 61.235 kg 06/07/24 05:08 06/07/24 05:08
--- NOTE | 2024-06-07 10:41 | US ---
EXAMINATION TYPE: US abdomen complete DATE OF EXAM: 06/07/2024 COMPARISON: US Aorta 07/23/2021 CLINICAL INDICATION: Female, 88 years old with history of Nausea; Nausea and vomiting yesterday joshni ng, Hx HTN TECHNIQUE: Grayscale and color Doppler imaging of the abdomen was performed. FINDINGS: EXAM MEASUREMENTS: Liver Length: 17.0 cm Gallbladder Wall: 0.1 cm CBD: 0.5 cm Spleen: 7.0 cm Right Kidney: 9.4 x 4.8 x 3.8 cm Left Kidney: 9.5 x 4.4 x 4.2 cm FORM TAMPING MACHINE OPERATOR NOTES: Pancreas: wnl Liver: Slightly enlarged. Gallbladder: Mobile echogenic foci with posterior shadowing seen Evidence for sonographic Lu's sign: No CBD: wnl Spleen: wnl Right Kidney: wnl Left Kidney: wnl Upper IVC: wnl Abd Aorta: Focal dilation seen at distal aorta = 5.4 x 2.5 x 2.3 cm IMPRESSION: 1. Cholelithiasis. 2. Fusiform prominence distal abdominal aorta with an AP dimension of 2.5 cm. 3. Mild hepatomegaly [facility], , 06/07/2024 10:38 AM
[2024-06-07] MEDS: hydrALAZINE HCL 25 MG TAB PO STA (13:07)
[2024-06-07] MEDS: hydrALAZINE HCL 50 MG TAB PO SCH (20:48)
[2024-06-08 08:32] LABS: Basophils # (A) 0.04 X 10*3/uL (0.00-0.10); Basophils % (A) 0.7 %; Eosinophils # (A) 0.16 X 10*3/uL (0.04-0.35); Eosinophils % (A) 2.7 %; HCT 35.6 % (37.2-46.3); Lymphocytes # (A) 2.01 X 10*3/uL (0.90-5.00); Lymphocytes % (A) 33.4 %; MCH 32.3 pg (27.0-32.0); MCHC 33.7 g/dL (32.0-37.0); MCV 95.7 FL (80.0-97.0); Mean Platelet Volume 11.5 FL (9.5-12.2); Monocytes # (A) 0.58 X 10*3/uL (0.20-1.00); Monocytes % (A) 9.7 %; NRBC Per 100 WBC 0 X 10*3/uL (0.00-0.01); Neutrophils % (A) 53.2 %; Platelet Count 140 X 10*3/uL (140-440); RBC 3.72 X 10*6/uL (4.10-5.20); RDW 13.2 % (11.5-14.5); WBC 6.01 X 10*3/uL (4.50-10.00)
[2024-06-08 08:44] LABS: ALT 14 U/L (8-44); AST 19 U/L (13-35); Albumin 3.7 g/dL (3.8-4.9); Albumin/Globulin Ratio 1.61 Ratio (1.60-3.17); Alkaline Phosphatase 67 U/L (41-126); Blood Urea Nitrogen 27.5 mg/dL (9.0-27.0); Calcium 8.9 mg/dL (8.7-10.3); Carbon Dioxide 22.3 mmol/L (21.6-31.8); Chloride 102 mmol/L (96-109); Globulin 2.3 g/dL (1.6-3.3); Glucose 104 mg/dL (70-110); Potassium 3.8 mmol/L (3.5-5.5); Sodium 137 mmol/L (135-145); Total Bilirubin 0.3 mg/dL (0.3-1.2)
[2024-06-08] MEDS: PANTOPRAZOLE 40 MG TABLET PO SCH (10:38)
[2024-06-08] MEDS: cloNIDine HCL 0.1 MG TAB PO SCH (10:38)
[2024-06-08] MEDS: ENOXAPARIN 30 MG/0.3 ML SYRINGE SQ SCH (10:38)
--- NOTE | 2024-06-08 12:06 | P.PN ---
Subjective HISTORY OF PRESENT ILLNESS: This is a 88-year-old female with a past medical history significant for coronary artery disease with previous stenting, valvular heart disease, hypertension, hyperlipidemia, peripheral vascular disease, and former nicotine dependence. Patient follows in the office with Dr. Morris. We have been asked to see the patient in consultation for congestive heart failure. Patient examined at the bedside. Patient states yesterday she was feeling nauseated and having episodes of vomiting. She also reports having episodes of just dry heaving. She also reports having diarrhea. She states that she began to feel weak as the day went on and lives alone so she was concerned and came to the hospital for further evaluation. Patient's blood pressure was found to be significantly elevated with a systolic greater than 200. Patient states she has been taking all of her cardiac medications without missing any doses. She states that she does not check her blood pressure at home. Patient denies having any chest pain or pressure. She denies having any shortness of breath. Denies any cough or fever. Patient's blood pressure remains elevated this morning with a systolic in the 170s. DIAGNOSTICS: - EKG reveals sinus bradycardia with significant baseline artifact. No obvious signs of acute ischemia. - Chest xray cardiomegaly. Pulmonary vasculature is prominent. Diffuse increased lung markings present bilaterally. Clinical correlation for congestive heart failure. - Laboratory data: WBC 7.14. Hemoglobin 12.4. Platelet count 149. Sodium 142. Potassium 3.9. BUN 19. Creatinine 1.0. Troponin negative x 1. proBNP 2560. - Current home cardiac medications include metoprolol tartrate 25 mg twice a day, hydrochlorothiazide 12.5 mg daily, lisinopril 20 mg twice a day, and aspirin 81 mg daily - Most recent echocardiogram obtained in May 2022 revealing normal EF, moderate AR, mild , mild TR, moderate MR - Cardiac catheterization history: December 2018 with stenting to the proximal LAD and mid LAD 06/08/2024 Patient examined this morning the bedside. Patient's blood pressure remains elevated this morning with a reading of 184/54. Patient is tearful upon examination and states that she is very stressed out as her son is starting chemotherapy patient states that she did not feel well overnight and thinks it is due to one of the new medication she started. Patient did have a blood pressure of 113/48 overnight. Echocardiogram completed revealing ejection fraction 60 to 65%, moderate pulm hypertension, mild MR, mild AR, mild TR PHYSICAL EXAM: VITAL SIGNS: Reviewed. GENERAL: Well-developed in no acute distress. HEENT: Head is normocephalic. Pupils are equal, round. Sclerae anicteric. Mucous membranes of the mouth are moist. Neck supple. No JVD or thyromegaly LUNGS: Respirations even and unlabored. Lungs essentially clear to auscultation bilaterally. HEART: Regular rate and rhythm. S1 and S2 heard. Systolic murmur noted ABDOMEN: Soft. Nondistended. Nontender. EXTREMITIES: Normal range of motion. No clubbing or cyanosis. Peripheral pulses intact. No lower extremity edema NEUROLOGIC: Awake and alert. Oriented x 3. ASSESSMENT: Nausea, vomiting, diarrhea Possible mild acute heart failure with preserved EF, currently euvolemic Hypertensive emergency Coronary artery disease with previous stenting Valvular heart disease including moderate AR, mild , mild TR, moderate MR Hypertension Hyperlipidemia Peripheral vascular disease Former nicotine dependence PLAN: Discontinue hydralazine Continue amlodipine Continue additional cardiac medications Per Dr. Steiner, add Catapres 0.1 mg twice a day Continue to monitor blood pressure If patient's blood pressures are improved, she may be discharged home today from a cardiac standpoint and follow-up in the office with Dr. Morris Nurse practitioner note has been reviewed by physician. Signing provider agrees with the documented findings, assessment, and plan of care documented by CUT OFF MACHINE OPERATOR as a scribe. Objective - Vital Signs Vital signs: Vital Signs Temp 97.7 F 06/08/24 08:12 Pulse 60 06/08/24 10:25 Resp 14 06/08/24 08:40 BP 179/75 06/08/24 10:25 Pulse Ox 97 06/08/24 10:25 FiO2 Intake & Output 06/07/24 06/08/24 06/08/24 18:59 06:59 18:59 Intake Total 1678 236 Balance 1678 236 Weight 60.5 kg Intake: Oral 1678 236 Other: Voiding Method Toilet Toilet Toilet # Voids 6 1 # Bowel Movements 1 - Labs CBC & Chem 7: 06/08/24 05:11 06/08/24 05:11 Labs: Abnormal Lab Results - Last 24 Hours (Table) 06/08/24 06/08/24 Range/Units 05:11 05:11 RBC 3.72 L (4.10-5.20) X 10*6/uL Hct 35.6 L (37.2-46.3) % MCH 32.3 H (27.0-32.0) pg Anion Gap 12.70 H (4.00-12.00) mmol/L BUN 27.5 H (9.0-27.0) mg/dL Est GFR (CKD-EPI) 48 L (>=60) BUN/Creatinine Ratio 25.00 H (12.00-20.00) Ratio Total Protein 6.0 L (6.2-8.2) g/dL Albumin 3.7 L (3.8-4.9) g/dL
--- NOTE | 2024-06-08 13:53 | P.PN ---
Subjective Progress Note Date: 06/08/24 Zoya Grimaldo, is an 88-year-old female patient who presented to the hospital with complaints of weakness nausea and diarrhea patient reports that symptoms started yesterday she denies any sick contacts or fever. Patient has a past medical history of CAD with multiple stents, chest pain, DVT, hype rlipidemia, hypertension, osteoarthritis and depression. Chest x-ray revealed clinical correlation for CHF. EKG completed showing sinus bradycardia. Lab work revealed white blood cell 6.9, hemoglobin 13.2, creatinine 0.68 bun 18 troponin 0.019, BNP 2560. At this time patient will be admitted cardiology services consulted patient started on IV Lasix. 2D echo has been ordered. stool for C. difficile and abdomen ultrasound ordered for nausea and diarrhea. At this time patient reports she feels much improved. Patient denies chest pain or shortness of breath. Patient denies nausea vomiting or diarrhea. Patient denies any urinary burning or frequency On 06/07/2024 patient is alert and oriented x 3. Patient reports she feels significantly improved. Patient remains on IV Lasix. Awaiting cardiology input. Abdomen ultrasound has been ordered. Patient blood pressure also remains high current vital signs temp 98.2, heart rate 67, respiratory rate 16, blood pressure 173/56 with pulse ox of 98% on room air patient denies chest pain or shortness of breath. Patient denies nausea vomiting or diarrhea. Patient denies any urinary burning or frequency On 06/08/2024 patient is alert and oriented x 3. Patient reports that she was given multiple new blood pressure medicine yesterday that made her feel very lightheaded. Does not feel like she should be discharged home due to ongoing lightheadedness and nausea. Patient denies chest pain or shortness of breath. Patient denies any urinary burning or frequency. Current vital signs temp 97.7, heart rate 49, respiratory rate 16, blood pressure 151/53 with a pulse ox of 94% on room air we will keep patient and have cardiology services reevaluate Objective - Vital Signs Vital signs: Vital Signs Temp 97.7 F 06/08/24 13:44 Pulse 49 L 06/08/24 13:44 Resp 16 06/08/24 13:44 BP 151/53 06/08/24 13:44 Pulse Ox 94 L 06/08/24 13:44 FiO2 Intake & Output 06/07/24 06/08/24 06/08/24 18:59 06:59 18:59 Intake Total 0728 336 Balance 1678 476 Weight 60.5 kg Intake: Oral 0337 999 Other: Voiding Method Toilet Toilet Toilet # Voids 6 1 # Bowel Movements 1 - Exam In general patient is alert and oriented x 3 in no distress HEENT head normocephalic and atraumatic Neck is supple no JVD no goiter no lymphadenopathy no carotid bruit Chest examination is clear to auscultation no crackles no wheezing Cardiac exam reveals regular heart sounds S1 and S2 no gallops no murmurs Abdomen is soft nontender no organomegaly with normal bowel sounds Extremity exam reveals no edema no cyanosis or clubbing Neurological examination reveals no gross focal deficits - Labs CBC & Chem 7: 06/08/24 05:11 06/08/24 05:11 Labs: Abnormal Lab Results - Last 24 Hours (Table) 06/08/24 06/08/24 Range/Units 05:11 05:11 RBC 3.72 L (4.10-5.20) X 10*6/uL Hct 35.6 L (37.2-46.3) % MCH 32.3 H (27.0-32.0) pg Anion Gap 12.70 H (4.00-12.00) mmol/L BUN 27.5 H (9.0-27.0) mg/dL Est GFR (CKD-EPI) 48 L (>=60) BUN/Creatinine Ratio 25.00 H (12.00-20.00) Ratio Total Protein 6.0 L (6.2-8.2) g/dL Albumin 3.7 L (3.8-4.9) g/dL Assessment and Plan Plan: Generalized weakness with nausea and diarrhea Evidence of acute exacerbation of congestive heart failure, with a chest x-ray revealing pulmonary vascular congestion and cardiomegaly. Gastroenteritis with nausea and diarrhea, will check stools for culture and C. difficile History of CAD with multiple stent placement History of chest pain History of hyperlipidemia History of DVT History of essential hypertension History of depression DVT prophylaxis Lovenox. GI prophylax Protonix Cardiology services consulted Patient started on IV Lasix Abdomen ultrasound ordered Stool for C. difficile ordered Repeat labs ordered
[2024-06-09 08:39] LABS: Basophils # (A) 0.06 X 10*3/uL (0.00-0.10); Eosinophils % (A) 3.5 %; HCT 34.7 % (37.2-46.3); HGB 11.8 g/dL (12.0-15.0); Lymphocytes # (A) 1.92 X 10*3/uL (0.90-5.00); Lymphocytes % (A) 33.2 %; MCH 31.6 pg (27.0-32.0); MCV 92.8 FL (80.0-97.0); Mean Platelet Volume 11.3 FL (9.5-12.2); Monocytes # (A) 0.61 X 10*3/uL (0.20-1.00); Monocytes % (A) 10.6 %; NRBC Per 100 WBC 0 X 10*3/uL (0.00-0.01); Neutrophils # (A) 2.97 X 10*3/uL (1.80-7.70); Neutrophils % (A) 51.4 %; Platelet Count 135 X 10*3/uL (140-440); RBC 3.74 X 10*6/uL (4.10-5.20); RDW 13.2 % (11.5-14.5); WBC 5.78 X 10*3/uL (4.50-10.00)
[2024-06-09 09:38] LABS: BUN/Creat Ratio 25.18 Ratio (12.00-20.00); Blood Urea Nitrogen 27.7 mg/dL (9.0-27.0); Carbon Dioxide 22.5 mmol/L (21.6-31.8); Chloride 100 mmol/L (96-109); Glucose 102 mg/dL (70-110); Potassium 3.7 mmol/L (3.5-5.5); Sodium 135 mmol/L (135-145)
[2024-06-09 09:39] LABS: ALT 16 U/L (8-44); AST 20 U/L (13-35); Albumin 3.6 g/dL (3.8-4.9); Albumin/Globulin Ratio 1.64 Ratio (1.60-3.17); Alkaline Phosphatase 62 U/L (41-126); Calcium 8.8 mg/dL (8.7-10.3); Globulin 2.2 g/dL (1.6-3.3); Total Bilirubin 0.3 mg/dL (0.3-1.2); Total Protein 5.8 g/dL (6.2-8.2)
--- NOTE | 2024-06-09 12:23 | P.PN ---
Subjective HISTORY OF PRESENT ILLNESS: This is a 88-year-old female with a past medical history significant for coronary artery disease with previous stenting, valvular heart disease, hypertension, hyperlipidemia, peripheral vascular disease, and former nicotine dependence. Patient follows in the office with Dr. Morris. We have been asked to see the patient in consultation for congestive heart failure. Patient examined at the bedside. Patient states yesterday she was feeling nauseated and having episodes of vomiting. She also reports having episodes of just dry heaving. She also reports having diarrhea. She states that she began to feel weak as the day went on and lives alone so she was concerned and came to the hospital for further evaluation. Patient's blood pressure was found to be significantly elevated with a systolic greater than 200. Patient states she has been taking all of her cardiac medications without missing any doses. She states that she does not check her blood pressure at home. Patient denies having any chest pain or pressure. She denies having any shortness of breath. Denies any cough or fever. Patient's blood pressure remains elevated this morning with a systolic in the 170s. DIAGNOSTICS: - EKG reveals sinus bradycardia with significant baseline artifact. No obvious signs of acute ischemia. - Chest xray cardiomegaly. Pulmonary vasculature is prominent. Diffuse increased lung markings present bilaterally. Clinical correlation for congestive heart failure. - Laboratory data: WBC 7.14. Hemoglobin 12.4. Platelet count 149. Sodium 142. Potassium 3.9. BUN 19. Creatinine 1.0. Troponin negative x 1. proBNP 2560. - Current home cardiac medications include metoprolol tartrate 25 mg twice a day, hydrochlorothiazide 12.5 mg daily, lisinopril 20 mg twice a day, and aspirin 81 mg daily - Most recent echocardiogram obtained in May 2022 revealing normal EF, moderate AR, mild , mild TR, moderate MR - Cardiac catheterization history: December 2018 with stenting to the proximal LAD and mid LAD 06/08/2024 Patient examined this morning the bedside. Patient's blood pressure remains elevated this morning with a reading of 184/54. Patient is tearful upon examination and states that she is very stressed out as her son is starting chemotherapy patient states that she did not feel well overnight and thinks it is due to one of the new medication she started. Patient did have a blood pressure of 113/48 overnight. Echocardiogram completed revealing ejection fraction 60 to 65%, moderate pulm hypertension, mild MR, mild AR, mild TR 06/09/2024 Patient examined this morning at the bedside. Patient currently denies chest pain or pressure. She denies shortness of breath. She states she is feeling much better today and is hoping to be discharged home today. Blood pressure improved with a systolic in the [id number]. She remains bradycardic with heart rate in the 50s which is her baseline. Denies any dizziness or lightheadedness. No episodes of syncope. PHYSICAL EXAM: VITAL SIGNS: Reviewed. GENERAL: Well-developed in no acute distress. HEENT: Head is normocephalic. Pupils are equal, round. Sclerae anicteric. Mucous membranes of the mouth are moist. Neck supple. No JVD or thyromegaly LUNGS: Respirations even and unlabored. Lungs essentially clear to auscultation bilaterally. HEART: Regular rate and rhythm. S1 and S2 heard. Systolic murmur noted ABDOMEN: Soft. Nondistended. Nontender. EXTREMITIES: Normal range of motion. No clubbing or cyanosis. Peripheral pulses intact. No lower extremity edema NEUROLOGIC: Awake and alert. Oriented x 3. ASSESSMENT: Nausea, vomiting, diarrhea Possible mild acute heart failure with preserved EF, currently euvolemic Hypertensive emergency Coronary artery disease with previous stenting Valvular heart disease including moderate AR, mild , mild TR, moderate MR Hypertension Hyperlipidemia Peripheral vascular disease Former nicotine dependence PLAN: Continue current cardiac medications Patient may be discharged home today from a cardiac standpoint Patient to follow-up postdischarge with Dr. Morris Nurse practitioner note has been reviewed by physician. Signing provider agrees with the documented findings, assessment, and plan of care documented by PROJECT FINANCE ANALYST as a scribe. Objective - Vital Signs Vital signs: Vital Signs Temp 97.4 F L 06/09/24 07:50 Pulse 52 L 06/09/24 07:50 Resp 16 06/09/24 07:50 BP 148/56 06/09/24 07:50 Pulse Ox 96 06/09/24 07:50 FiO2 Intake & Output 06/08/24 06/09/24 06/09/24 18:59 06:59 18:59 Intake Total 1796 Balance 1796 Weight 61.5 kg Intake: Oral 1796 Other: Voiding Method Toilet # Voids 6 1 - Labs CBC & Chem 7: 06/09/24 04:10 06/09/24 04:10 Labs: Abnormal Lab Results - Last 24 Hours (Table) 06/09/24 06/09/24 Range/Units 04:10 04:10 RBC 3.74 L (4.10-5.20) X 10*6/uL Hgb 11.8 L (12.0-15.0) g/dL Hct 34.7 L (37.2-46.3) % Plt Count 135 L (140-440) X 10*3/uL Anion Gap 12.50 H (4.00-12.00) mmol/L BUN 27.7 H (9.0-27.0) mg/dL Est GFR (CKD-EPI) 48 L (>=60) BUN/Creatinine Ratio 25.18 H (12.00-20.00) Ratio Total Protein 5.8 L (6.2-8.2) g/dL Albumin 3.6 L (3.8-4.9) g/dL
--- NOTE | 2024-06-09 13:32 | P.DS ---
Providers Date of admission: 06/06/24 12:23 Expected date of discharge: 06/09/24 Attending physician: Bin Mcconnell Consults: 06/06/24 17:03 Consult Physician Routine Consulting Provider: Devonte Dupree Consult Reason/Comments: Congestive heart failure Do you want consulting provider notified?: Yes [facility] Hospital Course: Diagnosis on discharge: Generalized weakness with nausea and diarrhea Evidence of acute exacerbation of congestive heart failure, with a chest x-ray revealing pulmonary vascular congestion and cardiomegaly. Gastroenteritis with nausea and diarrhea, will check stools for culture and C. difficile History of CAD with multiple stent placement History of chest pain History of hyperlipidemia History of DVT History of essential hypertension History of depression Hospital course: Zoya Grimaldo, is an 88-year-old female patient who presented to the hospital with complaints of weakness nausea and diarrhea patient reports that symptoms started yesterday she denies any sick contacts or fever. Patient has a past medical history of CAD with multiple stents, chest pain, DVT, hyperlipidemia, hypertension, osteoarthritis and depression. Chest x-ray revealed clinical correlation for CHF. EKG completed showing sinus bradycardia. Lab work revealed white blood cell 6.9, hemoglobin 13.2, creatinine 0.68 bun 18 troponin 0.019, BNP 2560. At this time patient will be admitted cardiology services consulted patient started on IV Lasix. 2D echo has been ordered. stool for C. difficile and abdomen ultrasound ordered for nausea and diarrhea. At this time patient reports she feels much improved. Patient denies chest pain or shortness of breath. Patient denies nausea vomiting or diarrhea. Patient denies any urinary burning or frequency On 06/07/2024 patient is alert and oriented x 3. Patient reports she feels significantly improved. Patient remains on IV Lasix. Awaiting cardiology input. Abdomen ultrasound has been ordered. Patient blood pressure also remains high current vital signs temp 98.2, heart rate 67, respiratory rate 16, blood pressure 173/56 with pulse ox of 98% on room air patient denies chest pain or shortness of breath. Patient denies nausea vomiting or diarrhea. Patient denies any urinary burning or frequency On 06/08/2024 patient is alert and oriented x 3. Patient reports that she was given multiple new blood pressure medicine yesterday that made her feel very lightheaded. Does not feel like she should be discharged home due to ongoing lightheadedness and nausea. Patient denies chest pain or shortness of breath. Patient denies any urinary burning or frequency. Current vital signs temp 97.7, heart rate 49, respiratory rate 16, blood pressure 151/53 with a pulse ox of 94% on room air we will keep patient and have cardiology services reevaluate On 06/09/2024 patient was seen and examined on the medical floor she is alert and oriented x 3 in no apparent distress there is no fever or chills no headache or dizziness no chest pain no shortness of breath no cough no nausea or vomiting no abdominal pain no diarrhea and no urinary symptoms. Patient is feeling better today she will be discharged to home. She will follow-up with her primary care physician, Dr Watkins, and with Dr. Morris cardiology Patient Condition at Discharge: Stable Plan - Discharge Summary Discharge Rx Participant: Yes New Discharge Prescriptions: New cloNIDine HCL [Catapres] 0.1 mg PO BID 30 Days #60 tab amLODIPine [Norvasc] 10 mg PO DAILY 30 Days #30 tab Continue Multivitamins, Thera [Multivitamin (formulary)] 1 tab PO DAILY lisinopriL 20 mg PO BID Metoprolol Tartrate [Lopressor] 25 mg PO BID Aspirin EC [Ecotrin Low Dose] 81 mg PO DAILY allopurinoL [Zyloprim] 100 mg PO DAILY hydroCHLOROthiazide [Hydrodiuril] 12.5 mg PO DAILY Lutein 20 mg PO DAILY Cholecalciferol [Vitamin D3 (25 Mcg = 1000 Iu)] 25 mcg PO DAILY Discharge Medication List Multivitamins, Thera [Multivitamin (formulary)] 1 tab PO DAILY 01/27/17 [History] Metoprolol Tartrate [Lopressor] 25 mg PO BID 02/24/20 [History] lisinopriL 20 mg PO BID 02/24/20 [History] Aspirin EC [Ecotrin Low Dose] 81 mg PO DAILY 06/06/24 [History] Cholecalciferol [Vitamin D3 (25 Mcg = 1000 Iu)] 25 mcg PO DAILY 06/06/24 [History] Lutein 20 mg PO DAILY 06/06/24 [History] allopurinoL [Zyloprim] 100 mg PO DAILY 06/06/24 [History] hydroCHLOROthiazide [Hydrodiuril] 12.5 mg PO DAILY 06/06/24 [History] amLODIPine [Norvasc] 10 mg PO DAILY 30 Days #30 tab 06/09/24 [Rx] cloNIDine HCL [Catapres] 0.1 mg PO BID 30 Days #60 tab 06/09/24 [Rx] Follow up Appointment(s)/Referral(s): Rosendo Morris MD [STAFF PHYSICIAN] - 1 Week Maeve Watkins MD [Primary Care Provider] - 1-2 days
--- NOTE | 2024-06-10 10:16 | P.DS ---
Providers Date of admission: 06/06/24 12:23 Expected date of discharge: 06/10/24 Attending physician: Bin Mcconnell Consults: 06/06/24 17:03 Consult Physician Routine Consulting Provider: Devonte Dupree Consult Reason/Comments: Congestive heart failure Do you want consulting provider notified?: Yes 06/09/24 16:30 Consult Physician Routine Consulting Provider: Geronimo Steiner Consult Reason/Comments: re-consult for bradycardia (hr 39-43) Do you want consulting provider notified?: Yes, Notify in am Primary care physician: Maeve Watkins Hospital Course: Discharge diagnosis Generalized weakness with nausea and diarrhea Evidence of acute exacerbation of congestive heart failure, with a chest x-ray revealing pulmonary vascular congestion and cardiomegaly. Gastroenteritis with nausea and diarrhea, will check stools for culture and C. difficile History of CAD with multiple stent placement History of chest pain History of hyperlipidemia History of DVT History of essential hypertension History of depression Hospital course Zoya Grimaldo, is an 88-year-old female patient who presented to the hospital with complaints of weakness nausea and diarrhea patient reports that symptoms started yesterday she denies any sick contacts or fever. Patient has a past medical history of CAD with multiple stents, chest pain, DVT, hyperlipidemia, hypertension, osteoarthritis and depression. Chest x-ray revealed clinical correlation for CHF. EKG completed showing sinus bradycardia. Lab work revealed white blood cell 6.9, hemoglobin 13.2, creatinine 0.68 bun 18 troponin 0.019, BNP 2560. At this time patient will be admitted cardiology services consulted patient started on IV Lasix. 2D echo has been ordered. s tool for C. difficile and abdomen ultrasound ordered for nausea and diarrhea. At this time patient reports she feels much improved. Patient denies chest pain or shortness of breath. Patient denies nausea vomiting or diarrhea. Patient denies any urinary burning or frequency On 06/07/2024 patient is alert and oriented x 3. Patient reports she feels significantly improved. Patient remains on IV Lasix. Awaiting cardiology input. Abdomen ultrasound has been ordered. Patient blood pressure also remains high current vital signs temp 98.2, heart rate 67, respiratory rate 16, blood pressure 173/56 with pulse ox of 98% on room air patient denies chest pain or shortness of breath. Patient denies nausea vomiting or diarrhea. Patient denies any urinary burning or frequency On 06/08/2024 patient is alert and oriented x 3. Patient reports that she was given multiple new blood pressure medicine yesterday that made her feel very lightheaded. Does not feel like she should be discharged home due to ongoing lightheadedness and nausea. Patient denies chest pain or shortness of breath. Patient denies any urinary burning or frequency. Current vital signs temp 97.7, heart rate 49, respiratory rate 16, blood pressure 151/53 with a pulse ox of 94% on room air we will keep patient and have cardiology services reevaluate On 06/09/2024 patient was seen and examined on the medical floor she is alert and oriented x 3 in no apparent distress there is no fever or chills no headache or dizziness no chest pain no shortness of breath no cough no nausea or vomiting no abdominal pain no diarrhea and no urinary symptoms. Patient is feeling better today she will be discharged to home. She will follow-up with her primary care physician, Dr Watkins, and with Dr. Morris cardiology On 06/10/2024 patient is alert and oriented x 3. Discharge was held yesterday due to episodes of bradycardia Catapres DC'd per cardiology. Patient eager to be DC'd home today. Current vital signs temp 98.0, heart rate 55, respiratory rate 12, blood pressure 139/53 with a pulse ox of 96% on room air patient to follow-up with PCP and consulting providers for further management Patient Condition at Discharge: Stable Plan - Discharge Summary Discharge Rx Participant: Yes New Discharge Prescriptions: New amLODIPine [Norvasc] 10 mg PO DAILY 30 Days #30 tab Continue Multivitamins, Thera [Multivitamin (formulary)] 1 tab PO DAILY lisinopriL 20 mg PO BID Metoprolol Tartrate [Lopressor] 25 mg PO BID Aspirin EC [Ecotrin Low Dose] 81 mg PO DAILY allopurinoL [Zyloprim] 100 mg PO DAILY hydroCHLOROthiazide [Hydrodiuril] 12.5 mg PO DAILY Lutein 20 mg PO DAILY Cholecalciferol [Vitamin D3 (25 Mcg = 1000 Iu)] 25 mcg PO DAILY Discharge Medication List Multivitamins, Thera [Multivitamin (formulary)] 1 tab PO DAILY 01/27/17 [History] Metoprolol Tartrate [Lopressor] 25 mg PO BID 02/24/20 [History] lisinopriL 20 mg PO BID 02/24/20 [History] Aspirin EC [Ecotrin Low Dose] 81 mg PO DAILY 06/06/24 [History] Cholecalciferol [Vitamin D3 (25 Mcg = 1000 Iu)] 25 mcg PO DAILY 06/06/24 [History] Lutein 20 mg PO DAILY 06/06/24 [History] allopurinoL [Zyloprim] 100 mg PO DAILY 06/06/24 [History] hydroCHLOROthiazide [Hydrodiuril] 12.5 mg PO DAILY 06/06/24 [History] amLODIPine [Norvasc] 10 mg PO DAILY 30 Days #30 tab 06/09/24 [Rx] Follow up Appointment(s)/Referral(s): Rosendo Morris MD [STAFF PHYSICIAN] - 06/17/24 3:00 pm Maeve Watkins MD [Primary Care Provider] - 06/14/24 1:00 pm Activity/Diet/Wound Care/Special Instructions: HOLD LOPRESSOR/METOPROLOL IF HEART RATE IS LESS THAN 60 BEATS PER MINUTE. Discharge Disposition: HOME SELF-CARE
[2024-06-10] MEDS: hydrALAZINE HCL 50 MG TAB PO SCH (11:15)
[2024-06-10] MEDS: DOXAZOSIN 2 MG TAB PO SCH (14:56)
--- NOTE | 2024-06-10 21:29 | PN ---
PROGRESS NOTE SUBJECTIVE: This is an -[id number] lady who has been in the hospital primarily with uncontrolled hypertension. We thought the patient was ready to be discharged home yesterday after her blood pressure is well controlled. However, the patient had bradycardia yesterday due to which the admission had been held and we were asked to see the patient again. The patient is having sinus bradycardia, probably related to the metoprolol and the Catapres that she is on. I am going to stop the Catapres and hold the metoprolol and put her on hydralazine and use Norvasc, hydralazine, and lisinopril for blood pressure control. The patient is free of symptoms and is desperate to go home. OBJECTIVE: VITAL SIGNS: Heart rate is 54 beats per minute, blood pressure is 160/92, respiratory rate is 18. NECK: There is no jugular venous distention. CHEST: Reveals good air entry bilaterally. HEART: Reveals first and second heart sounds. No gallop. No murmur. ABDOMEN: Soft. EXTREMITIES: Did not reveal any edema. Peripheral pulses are felt. ASSESSMENT: 1. Sinus bradycardia secondary to beta-blockers and Catapres. I am going to stop those and start the patient on Catapres. 2. Mild acute diastolic heart failure. 3. Coronary artery disease, status post prior stenting. 4. Moderate mitral regurgitation. PLAN: The patient will be discharged home today and follow up with Dr. Morris in the office. If necessary, she will undergo a Holter monitor. MMYEISON / JOELN: [id number] /
[2024-06-11 08:43] VITALS: RESP 16
--- NOTE | 2024-06-11 11:17 | P.DS ---
Providers Date of admission: 06/06/24 12:23 Expected date of discharge: 06/11/24 Attending physician: Bin Mcconnell Consults: 06/06/24 17:03 Consult Physician Routine Consulting Provider: Devonte Dupree Consult Reason/Comments: Congestive heart failure Do you want consulting provider notified?: Yes 06/09/24 16:30 Consult Physician Routine Consulting Provider: Geronimo Steiner Consult Reason/Comments: re-consult for bradycardia (hr 39-43) Do you want consulting provider notified?: Yes, Notify in am 06/10/24 13:52 Consult Physician Routine Consulting Provider: Geronimo Steiner Consult Reason/Comments: medication adjustment/pt refusing hydralazine Do you want consulting provider notified?: Yes Primary care physician: Maeve Watkins Hospital Course: Discharge diagnosis Generalized weakness with nausea and diarrhea Evidence of acute exacerbation of congestive heart failure, with a chest x-ray revealing pulmonary vascular congestion and cardiomegaly. Gastroenteritis with nausea and diarrhea, will check stools for culture and C. difficile History of CAD with multiple stent placement History of chest pain History of hyperlipidemia History of DVT History of essential hypertension History of depression Hospital course Zoya Grimaldo, is an 88-year-old female patient who presented to the hospital with complaints of weakness nausea and diarrhea patient reports that symptoms started yesterday she denies any sick contacts or fever. Patient has a past medical history of CAD with multiple stents, chest pain, DVT, hyperlipidemia, hypertension, osteoarthritis and depression. Chest x-ray revealed clinical correlation for CHF. EKG completed showing sinus bradycardia. Lab work revealed white blood cell 6.9, hemoglobin 13.2, creatinine 0.68 bun 18 troponin 0.019, BNP 2560. At this time patient will be admitted cardiology services consulted patient started on IV Lasix. 2D echo has been ordered. stool for C. difficile and abdomen ultrasound ordered for nausea and diarrhea. At this time patient reports she feels much improved. Patient denies chest pain or shortness of breath. Patient denies nausea vomiting or diarrhea. Patient denies any urinary burning or frequency On 06/07/2024 patient is alert and oriented x 3. Patient reports she feels significantly improved. Patient remains on IV Lasix. Awaiting cardiology input. Abdomen ultrasound has been ordered. Patient blood pressure also remains high current vital signs temp 98.2, heart rate 67, respiratory rate 16, blood pressure 173/56 with pulse ox of 98% on room air patient denies chest pain or shortness of breath. Patient denies nausea vomiting or diarrhea. Patient denies any urinary burning or frequency On 06/08/2024 patient is alert and oriented x 3. Patient reports that she was given multiple new blood pressure medicine yesterday that made her feel very lightheaded. Does not feel like she should be discharged home due to ongoing lightheadedness and nausea. Patient denies chest pain or shortness of breath. Patient denies any urinary burning or frequency. Current vital signs temp 97.7, heart rate 49, respiratory rate 16, blood pressure 151/53 with a pulse ox of 94% on room air we will keep patient and have cardiology services reevaluate On 06/09/2024 patient was seen and examined on the medical floor she is alert and oriented x 3 in no apparent distress there is no fever or chills no headache or dizziness no chest pain no shortness of breath no cough no nausea or vomiting no abdominal pain no diarrhea and no urinary symptoms. Patient is feeling better today she will be discharged to home. She will follow-up with her primary care physician, Dr Watkins, and with Dr. Morris cardiology On 06/10/2024 patient is alert and oriented x 3. Discharge was held yesterday due to episodes of bradycardia Catapres DC'd per cardiology. Patient eager to be DC'd home today. Current vital signs temp 98.0, heart rate 55, respiratory rate 12, blood pressure 139/53 with a pulse ox of 96% on room air patient to follow-up with PCP and consulting providers for further management. On 06/11/2024 patient was seen and examined on the medical floor she is alert and oriented x 3 in no apparent distress there is no fever or chills no headache or dizziness no chest pain no shortness of breath no cough no nausea or vomiting no abdominal pain no diarrhea and no urinary symptoms. At discharge was placed yesterday for patient however she stated that she was not feeling well taking the hydralazine. Hydralazine was discontinued, and consultation was requested again from cardiology, she was reevaluated again today and was started on Cardura 2 mg daily, which patient tolerated well so far, she will be discharged to home today blood pressure medications will include lisinopril 20 mg p.o. twice daily, amlodipine 10 mg p.o. daily, Cardura 2 mg p.o. daily, and hydrochlorothiazide 12.5 mg p.o. daily. Patient will follow-up with her primary care physician Dr. Watkins, she will also follow-up with Dr. Morris her enterprise resource analyst. Patient Condition at Discharge: Stable Plan - Discharge Summary Discharge Rx Participant: Yes New Discharge Prescriptions: New Doxazosin [Cardura] 2 mg PO DAILY 30 Days #60 tab amLODIPine [Norvasc] 10 mg PO DAILY 30 Days #30 tab Continue Multivitamins, Thera [Multivitamin (formulary)] 1 tab PO DAILY lisinopriL 20 mg PO BID Aspirin EC [Ecotrin Low Dose] 81 mg PO DAILY allopurinoL [Zyloprim] 100 mg PO DAILY hydroCHLOROthiazide [Hydrodiuril] 12.5 mg PO DAILY Lutein 20 mg PO DAILY Cholecalciferol [Vitamin D3 (25 Mcg = 1000 Iu)] 25 mcg PO DAILY Discontinued Metoprolol Tartrate [Lopressor] 25 mg PO BID Discharge Medication List Multivitamins, Thera [Multivitamin (formulary)] 1 tab PO DAILY 01/27/17 [History] lisinopriL 20 mg PO BID 02/24/20 [History] Aspirin EC [Ecotrin Low Dose] 81 mg PO DAILY 06/06/24 [History] Cholecalciferol [Vitamin D3 (25 Mcg = 1000 Iu)] 25 mcg PO DAILY 06/06/24 [History] Lutein 20 mg PO DAILY 06/06/24 [History] allopurinoL [Zyloprim] 100 mg PO DAILY 06/06/24 [History] hydroCHLOROthiazide [Hydrodiuril] 12.5 mg PO DAILY 06/06/24 [History] amLODIPine [Norvasc] 10 mg PO DAILY 30 Days #30 tab 06/09/24 [Rx] Doxazosin [Cardura] 2 mg PO DAILY 30 Days #60 tab 06/11/24 [Rx] Follow up Appointment(s)/Referral(s): Rosendo Morris MD [STAFF PHYSICIAN] - 06/17/24 3:00 pm Maeve Watkins MD [Primary Care Provider] - 06/14/24 1:00 pm Patient Instructions/Handouts: Heart Failure (DC), Chronic Hypertension (DC), Bradycardia (DC) Activity/Diet/Wound Care/Special Instructions: DISCONTINUE LOPRESSOR/METOPROLOL and DISCONTINUE CLONIDINE/CATAPRES. Discharge Disposition: HOME SELF-CARE
[2024-06-11 13:05] VITALS: BP 175/51; PULSE 65; TEMP 97.9
== END 2024-06-11 15:30 | disposition home or self-care (01) ==
LOC: EC 08:00 → 5NMEDONC 12:23
PROVIDERS: ADMIT Internal Medicine; ATTEND Internal Medicine
DX: I11.0 Hypertensive heart disease with heart failure (principal); I50.31 Acute diastolic (congestive) heart failure; I16.1 Hypertensive emergency; K52.9 Noninfective gastroenteritis and colitis, unspecified; E78.5 Hyperlipidemia, unspecified; F32.A Depression, unspecified; I25.10 Atherosclerotic heart disease of native coronary artery without angina pectoris; I25.2 Old myocardial infarction; I34.0 Nonrheumatic mitral (valve) insufficiency; I73.9 Peripheral vascular disease, unspecified; R00.1 Bradycardia, unspecified; T44.7X5A Adverse effect of beta-adrenoreceptor antagonists, initial encounter; M19.90 Unspecified osteoarthritis, unspecified site; Z79.82 Long term (current) use of aspirin; Z79.899 Other long term (current) drug therapy; Z86.718 Personal history of other venous thrombosis and embolism; Z87.891 Personal history of nicotine dependence; Z95.5 Presence of coronary angioplasty implant and graft; Z88.2 Allergy status to sulfonamides
CPT/HCPCS: 96376; 96372 ×2; 96361; 96374; 99285; 36415; 93005; 93306; 83880; 80053 ×4; 83605; 83735; 84484; 85025 ×4; 85610; 85730; 81003; 87636; 71046; 76700; G0378 ×6; J1940 ×2; J1650 ×2

== ENCOUNTER → 2025-02-10 | Outpatient (CLI) | payer MEDICARE, OTHER ==
--- NOTE | 2025-02-10 13:09 | FL ---
EXAMINATION TYPE: FL barium swallow DATE OF EXAM: 02/10/2025 COMPARISON: NONE CLINICAL INDICATION: Female, 89 years old with history of R13.10 DYSPHAGIA, UNSPECIFIED, food getting stuck with pain. Patient takes occasional medicine for reflux TECHNIQUE: A double contrast esophagram is performed utilizing air and barium. A total of 13 second s of fluoroscopic time was utilized during procedure and 54 images obtained, total DAP = n/p. FINDINGS: The esophagus shows mild dysmotility with some abnormal secondary tertiary contractions. Th ere is small to moderate size sliding-type hiatal hernia. No intraluminal mass. No stricture is seen. No significant gastroesophageal reflux was seen during real time performance of this study. IMPRESSION: Small to moderate-sized sliding-type hiatal hernia. Mild presbyesophagus. [facility], , 02/10/2025 1:06 PM
== END | disposition home or self-care (01) ==
LOC: RADFLMAIN 10:07
PROVIDERS: ATTEND Family Medicine
DX: K44.9 Diaphragmatic hernia without obstruction or gangrene (principal); K22.89 Other specified disease of esophagus
CPT/HCPCS: 74220